=== PATIENT | male | born 1965 | race Caucasian/White ===

== ENCOUNTER 2018-02-16 17:04 | Observation (INO) ==
[2018-02-16] MEDS: 0.9 % Sodium Chloride 1,000 ML IVC SCH ×2 (17:56→19:54)
--- NOTE | 2018-02-16 18:07 | Emergency Department Note ---
Disposition Clinical Impression: Pneumonia, Hyperglycemia, Tobacco abuse Disposition: Admitted As Inpatient Condition: Fair General Adult HPI - General Stated complaint: urinary symptoms, hypergylcemia Time Seen by Provider: 02/16/18 17:41 Source: patient Limitations: other Nursing Notes Reviewed: Yes Vital Signs Reviewed: Yes - History of Present Illness Pain Scale: 0 - Related Data Home Medications Medication Instructions Recorded Confirmed Amlodipine Besylate 10 mg PO DAILY 02/16/18 02/16/18 Aspirin Enteric Coated [Aspirin EC] 81 mg PO DAILY 02/16/18 02/16/18 Bupropion HCl [Wellbutrin Xl] 300 mg PO DAILY 02/16/18 02/16/18 Cilostazol [Pletal] 100 mg PO BID 02/16/18 02/16/18 Clopidogrel [Plavix] 75 mg PO DAILY 02/16/18 02/16/18 Dapagliflozin Propanediol [Farxiga] 5 mg PO DAILY 02/16/18 02/16/18 Donepezil HCl [Aricept] 10 mg PO DAILY 02/16/18 02/16/18 Fenofibrate Nanocrystallized 145 mg PO DAILY 02/16/18 02/16/18 [Fenofibrate] Glimepiride [Amaryl] 4 mg PO DAILY 02/16/18 02/16/18 Insulin Glargine,Hum.rec.anlog 50 unit SQ BID 02/16/18 02/16/18 [Basaglar Kwikpen U-100] Isosorbide MONOnitrate (24 HR) 60 mg PO DAILY 02/16/18 02/16/18 [Imdur] Metformin HCl [Glucophage] 1,000 mg PO BID 02/16/18 02/16/18 Metoprolol Tartrate [Lopressor] 50 mg PO BID 02/16/18 02/16/18 Rosuvastatin [Crestor] 40 mg PO HS 02/16/18 02/16/18 Sertraline [Zoloft] 50 mg PO DAILY 02/16/18 02/16/18 Allergies Allergy/AdvReac Type Severity Reaction Status Date / Time No Known Allergies Allergy Verified 01/29/18 16:58 Past Medical History - Past Medical History Medical history: Reports: coronary artery disease, CVA, diabetes, hyperlipidemia , hypertension Psychiatric history: Reports: no psych history - Social History Smoking Status: Current every day smoker Smokeless Tobacco Status: No Alcohol use: Reports: none Drug use: Reports: none Physical Exam - General Limitations: other General appearance: alert, in no apparent distress Course Vital Signs Temperature 98.9 F 02/16/18 17:40 Pulse Rate 106 02/16/18 17:40 Respiratory Rate 16 02/16/18 17:40 Blood Pressure 153/83 02/16/18 17:40 O2 Sat by Pulse Oximetry 94 02/16/18 17:40 Temperature 98.1 F 02/17/18 00:06 Pulse Rate 98 02/17/18 00:06 Respiratory Rate 15 02/17/18 00:06 Blood Pressure 151/75 02/17/18 00:06 O2 Sat by Pulse Oximetry 96 02/17/18 00:06 Oxygen Delivery Oxygen Delivery Room Air Medical Decision Making - Lab Data Result diagrams: 02/16/18 17:54 02/16/18 17:54 Lab Results 02/16/18 02/16/18 02/16/18 Range/Units 17:11 17:11 17:53 WBC (4.3-11.1) K/mcL RBC (4.19-5.50) M/mcL Hgb (12.9-16.9) g/dL Hct (37.5-50.1) % MCV (83.0-100.0) fL MCH (28.0-33.3) pg MCHC (31.6-35.5) g/dL RDW (11.5-14.5) % Plt Count (140-400) K/mcL MPV (9.4-12.4) fL Immature Gran % (0-4) % Seg Neutrophils % % Lymphocytes % % Monocytes % % Eosinophils % % Basophils % % Neutrophils # (1.6-8.9) K/mcL Lymphocytes # (0.6-4.6) K/mcL Monocytes # (0.0-1.3) K/mcL Eosinophils # (0.0-0.6) K/mcL Basophils # (0.0-0.2) K/mcL Nucleated RBCs/100 WBC (0) /100 WBC VBG pH (7.32-7.42) pH Units VBG pCO2 (41-51) mmHg VBG pO2 (25-50) mmHg VBG HCO3 (21-27) mEq/L Sodium (136-145) mEq/L Potassium (3.5-5.1) mEq/L Chloride (98-107) mEq/L Carbon Dioxide (23-29) mEq/L BUN (6-20) mg/dL Creatinine (0.70-1.30) mg/dL Est GFR ( Amer) (> 60) Est GFR (Non-Af Amer) (> 60) BUN/Creatinine Ratio (6-26) Glucose (70-105) mg/dL POC Glucose 415 H* (70-99) mg/dL Calculated Osmolality (280-300) Calcium (8.6-10.3) mg/dL Total Bilirubin (0.3-1.0) mg/dL AST (13-39) Units/L ALT (7-52) Units/L Alkaline Phosphatase (34-104) Units/L Troponin I (< 0.04) ng/mL Serum Total Protein (6.4-8.9) g/dL Albumin (3.5-5.7) g/dL Globulin (2.4-3.5) g/dL Albumin/Globulin Ratio (1.1-2.2) Beta-Hydroxybutyric Acd (0.02-0.27) mmol/L Urine Color Yellow (Yellow) Urine Clarity Clear (Clear) Urine pH 5.0 (5.0-8.0) pH Units Ur Specific [place] > 1.030 H (1.010-1.025) Urine Protein Negative (Neg-Trace) mg/dL Urine Glucose (UA) >=1000 H (Normal) mg/dL Urine Ketones Negative (Negative) mg/dL Urine Blood Negative (Negative) Urine Nitrite Negative (Negative) Urine Bilirubin Negative (Negative) Urine Urobilinogen Normal (Normal) mg/dL Ur Leukocyte Esterase Negative (Negative) Ur Culture Indicated? NO (NO) Urine Opiates Screen Negative (Mgdebc=735) ng/mL Ur Barbiturates Screen Negative (Efjavr=957) ng/mL Ur Phencyclidine Scrn Negative (Cutoff=25) ng/mL Ur Amphetamines Screen Negative (Fzxnam=9033) ng/mL U Benzodiazepines Scrn Negative (Ekvumj=744) ng/mL Urine Cocaine Screen Negative (Cutoff= 300) ng/mL U Marijuana (THC) Screen Negative (Cutoff = 50) ng/mL Ur Drug Screen Interp See Below 02/16/18 02/16/18 02/16/18 Range/Units 17:54 17:54 17:54 WBC 17.7 H (4.3-11.1) K/mcL RBC 5.11 (4.19-5.50) M/mcL Hgb 15.8 (12.9-16.9) g/dL Hct 48.0 (37.5-50.1) % MCV 93.9 (83.0-100.0) fL MCH 30.9 (28.0-33.3) pg MCHC 32.9 (31.6-35.5) g/dL RDW 14.9 H (11.5-14.5) % Plt Count 315 (140-400) K/mcL MPV 10.2 (9.4-12.4) fL Immature Gran % 1.8 (0-4) % Seg Neutrophils % 44.5 % Lymphocytes % 38.3 % Monocytes % 11.0 % Eosinophils % 3.9 % Basophils % 0.5 % Neutrophils # 7.9 (1.6-8.9) K/mcL Lymphocytes # 6.8 H (0.6-4.6) K/mcL Monocytes # 1.9 H (0.0-1.3) K/mcL Eosinophils # 0.7 H (0.0-0.6) K/mcL Basophils # 0.1 (0.0-0.2) K/mcL Nucleated RBCs/100 WBC 0.2 H (0) /100 WBC VBG pH (7.32-7.42) pH Units VBG pCO2 (41-51) mmHg VBG pO2 (25-50) mmHg VBG HCO3 (21-27) mEq/L Sodium 139 (136-145) mEq/L Potassium 4.0 (3.5-5.1) mEq/L Chloride 105 (98-107) mEq/L Carbon Dioxide 24 (23-29) mEq/L BUN 32 H (6-20) mg/dL Creatinine 1.30 (0.70-1.30) mg/dL Est GFR ( Amer) > 60 (> 60) Est GFR (Non-Af Amer) 58 L (> 60) BUN/Creatinine Ratio 25 (6-26) Glucose 392 H (70-105) mg/dL POC Glucose (70-99) mg/dL Calculated Osmolality 311 H (280-300) Calcium 10.1 (8.6-10.3) mg/dL Total Bilirubin 0.2 L (0.3-1.0) mg/dL AST 17 (13-39) Units/L ALT 24 (7-52) Units/L Alkaline Phosphatase 46 (34-104) Units/L Troponin I < 0.03 (< 0.04) ng/mL Serum Total Protein 7.2 (6.4-8.9) g/dL Albumin 4.3 (3.5-5.7) g/dL Globulin 2.9 (2.4-3.5) g/dL Albumin/Globulin Ratio 1.5 (1.1-2.2) Beta-Hydroxybutyric Acd 0.25 (0.02-0.27) mmol/L Urine Color (Yellow) Urine Clarity (Clear) Urine pH (5.0-8.0) pH Units Ur Specific [place] (1.010-1.025) Urine Protein (Neg-Trace) mg/dL Urine Glucose (UA) (Normal) mg/dL Urine Ketones (Negative) mg/dL Urine Blood (Negative) Urine Nitrite (Negative) Urine Bilirubin (Negative) Urine Urobilinogen (Normal) mg/dL Ur Leukocyte Esterase (Negative) Ur Culture Indicated? (NO) Urine Opiates Screen (Pfjgme=260) ng/mL Ur Barbiturates Screen (Jnepar=394) ng/mL Ur Phencyclidine Scrn (Cutoff=25) ng/mL Ur Amphetamines Screen (Oxloxr=2940) ng/mL U Benzodiazepines Scrn (Cbjzhw=614) ng/mL Urine Cocaine Screen (Cutoff= 300) ng/mL U Marijuana (THC) Screen (Cutoff = 50) ng/mL Ur Drug Screen Interp 02/16/18 02/16/18 02/16/18 Range/Units 17:54 18:11 20:07 WBC (4.3-11.1) K/mcL RBC (4.19-5.50) M/mcL Hgb (12.9-16.9) g/dL Hct (37.5-50.1) % MCV (83.0-100.0) fL MCH (28.0-33.3) pg MCHC (31.6-35.5) g/dL RDW (11.5-14.5) % Plt Count (140-400) K/mcL MPV (9.4-12.4) fL Immature Gran % (0-4) % Seg Neutrophils % % Lymphocytes % % Monocytes % % Eosinophils % % Basophils % % Neutrophils # (1.6-8.9) K/mcL Lymphocytes # (0.6-4.6) K/mcL Monocytes # (0.0-1.3) K/mcL Eosinophils # (0.0-0.6) K/mcL Basophils # (0.0-0.2) K/mcL Nucleated RBCs/100 WBC (0) /100 WBC VBG pH 7.33 (7.32-7.42) pH Units VBG pCO2 48 (41-51) mmHg VBG pO2 47 (25-50) mmHg VBG HCO3 25 (21-27) mEq/L Sodium (136-145) mEq/L Potassium (3.5-5.1) mEq/L Chloride (98-107) mEq/L Carbon Dioxide (23-29) mEq/L BUN (6-20) mg/dL Creatinine (0.70-1.30) mg/dL Est GFR ( Amer) (> 60) Est GFR (Non-Af Amer) (> 60) BUN/Creatinine Ratio (6-26) Glucose (70-105) mg/dL POC Glucose 362 H 257 H (70-99) mg/dL Calculated Osmolality (280-300) Calcium (8.6-10.3) mg/dL Total Bilirubin (0.3-1.0) mg/dL AST (13-39) Units/L ALT (7-52) Units/L Alkaline Phosphatase (34-104) Units/L Troponin I (< 0.04) ng/mL Serum Total Protein (6.4-8.9) g/dL Albumin (3.5-5.7) g/dL Globulin (2.4-3.5) g/dL Albumin/Globulin Ratio (1.1-2.2) Beta-Hydroxybutyric Acd (0.02-0.27) mmol/L Urine Color (Yellow) Urine Clarity (Clear) Urine pH (5.0-8.0) pH Units Ur Specific [place] (1.010-1.025) Urine Protein (Neg-Trace) mg/dL Urine Glucose (UA) (Normal) mg/dL Urine Ketones (Negative) mg/dL Urine Blood (Negative) Urine Nitrite (Negative) Urine Bilirubin (Negative) Urine Urobilinogen (Normal) mg/dL Ur Leukocyte Esterase (Negative) Ur Culture Indicated? (NO) Urine Opiates Screen (Tjibbc=698) ng/mL Ur Barbiturates Screen (Ydotsr=409) ng/mL Ur Phencyclidine Scrn (Cutoff=25) ng/mL Ur Amphetamines Screen (Tpfcvp=9612) ng/mL U Benzodiazepines Scrn (Crhmgq=690) ng/mL Urine Cocaine Screen (Cutoff= 300) ng/mL U Marijuana (THC) Screen (Cutoff = 50) ng/mL Ur Drug Screen Interp Attestation Statement - Attestation Attestation: I, Alfonzo Stafford, examined this patient and my medical decision-making was reviewed with the CLIENT INTEGRATION MANAGER/PA/Advanced Practice Nurse/Resident Physician. I agree with the documented findings, disposition and treatment plan as described except to the extent set forth below. 53-year-old male presents emergency Department with concerns of increased urinary frequency and elevated blood sugar. Patient has a history of diabetes and takes, glimepiride, metformin and insulin shot. He was sent in to the emergency department for further evaluation from [facility]. Patient reports persistent diarrhea over the past few weeks however he denies abdominal pain, hematochezia, melena. No chest pain or shortness of breath the emergency department. Blood sugars greater than 400 prior to arrival. He denies missing any of his medications. We will obtain laboratory evaluation and imaging to evaluate possible DKA. Patient mildly tachycardic on initial evaluation and otherwise vital signs within normal limits. He is given IV fluids emergency department. Imaging and laboratory evaluation pending at this time.
[2018-02-16 18:08] LABS: Basophils # 0.1 K/mcL (0.0-0.2); Basophils % 0.5 %; Eosinophils # 0.7 K/mcL (0.0-0.6); Eosinophils % 3.9 %; Hemoglobin 15.8 g/dL (12.9-16.9); Immature Granulocytes % 1.8 % (0-4); Lymphocytes # 6.8 K/mcL (0.6-4.6); Lymphocytes % 38.3 %; Mean Corpuscular HGB Conc 32.9 g/dL (31.6-35.5); Mean Corpuscular Hemoglobin 30.9 pg (28.0-33.3); Mean Corpuscular Volume 93.9 fL (83.0-100.0); Mean Platelet Volume 10.2 fL (9.4-12.4); Monocytes # 1.9 K/mcL (0.0-1.3); Neutrophils # 7.9 K/mcL (1.6-8.9); Nucleated Red Blood Cells 0.2 /100 WBC (0); Platelet Count 315 K/mcL (140-400); Red Blood Count 5.11 M/mcL (4.19-5.50); Red Cell Distribution Width 14.9 % (11.5-14.5); Segmented Neutrophils % 44.5 %
[2018-02-16 18:15] LABS: VBG HCO3 25 mEq/L (21-27); VBG PCO2 48 mmHg (41-51); VBG PH 7.33 pH Units (7.32-7.42); VBG PO2 47 mmHg (25-50)
[2018-02-16 18:22] LABS: Amphetamine Screen,Urine Negative ng/mL (Cutoff=1000); Barbiturate Screen,Urine Negative ng/mL (Cutoff=200); Benzodiazepines Screen,Urine Negative ng/mL (Cutoff=200); Cannabinoid Screen,Urine Negative ng/mL (Cutoff = 50); Cocaine Screen,Urine Negative ng/mL (Cutoff= 300); Opiate Screen,Urine Negative ng/mL (Cutoff=300); Phencyclidine Screen,Urine Negative ng/mL (Cutoff=25)
[2018-02-16 18:36] LABS: Alanine Aminotransferase 24 Units/L (7-52); Albumin 4.3 g/dL (3.5-5.7); Albumin/Globulin Ratio 1.5 (1.1-2.2); Alkaline Phosphatase 46 Units/L (34-104); Aspartate Amino Transferase 17 Units/L (13-39); BUN/Creatinine Ratio 25 (6-26); Bilirubin,Total 0.2 mg/dL (0.3-1.0); Blood Urea Nitrogen 32 mg/dL (6-20); Calcium 10.1 mg/dL (8.6-10.3); Carbon Dioxide 24 mEq/L (23-29); Chloride 105 mEq/L (98-107); Globulin 2.9 g/dL (2.4-3.5); Glucose 392 mg/dL (70-105); Osmolality,Calculated 311 (280-300); Sodium 139 mEq/L (136-145); Total Protein 7.2 g/dL (6.4-8.9); Troponin I < 0.03 ng/mL (< 0.04); eGFR For Non-African Americans 58 (> 60)
--- NOTE | 2018-02-16 19:10 | Emergency Department Note ---
Disposition Clinical Impression: Hyperglycemia, Tobacco abuse Pneumonia Qualifiers: Pneumonia type: due to unspecified organism Laterality: left Lung location: lower lobe of lung Qualified Code(s): J18.1 - Lobar pneumonia, unspecified organism Disposition: Admitted As Inpatient Condition: Fair Time of Disposition: 20:26 General Adult HPI - General Stated complaint: urinary symptoms, hypergylcemia Time Seen by Provider: 02/16/18 17:41 Source: patient Limitations: other Nursing Notes Reviewed: Yes Vital Signs Reviewed: Yes - History of Present Illness HPI Narrative: Patient is a 53-year-old male who presents to [place] ED with a chief complaint of elevated blood sugar. He was sent over by [facility] where he is undergoing mental health treatment. He had multiple blood sugar readings around 442 as well as excessive thirst and urinary frequency approximately 4 times in one hour. He also has a history of a stroke back when he was 28 years old and has difficulty expressing himself verbally. He also follows with [facility] for heart problems. Patient states he has been having diarrhea for the last 3 weeks. Denies any abdominal pain currently. Onset (ago): week(s) (3) Pain Scale: 0 Consistency: constant Improves with: nothing Worsens with: nothing Associated symptoms: Denies: chest pain, cough, fever/chills, nausea/vomiting, shortness of breath Treatments Prior to Arrival: none - Related Data Home Medications Medication Instructions Recorded Confirmed Amlodipine Besylate 10 mg PO DAILY 02/16/18 02/16/18 Aspirin Enteric Coated [Aspirin EC] 81 mg PO DAILY 02/16/18 02/16/18 Bupropion HCl [Wellbutrin Xl] 300 mg PO DAILY 02/16/18 02/16/18 Cilostazol [Pletal] 100 mg PO BID 02/16/18 02/16/18 Clopidogrel [Plavix] 75 mg PO DAILY 02/16/18 02/16/18 Dapagliflozin Propanediol [Farxiga] 5 mg PO DAILY 02/16/18 02/16/18 Donepezil HCl [Aricept] 10 mg PO DAILY 02/16/18 02/16/18 Fenofibrate Nanocrystallized 145 mg PO DAILY 02/16/18 02/16/18 [Fenofibrate] Glimepiride [Amaryl] 4 mg PO DAILY 02/16/18 02/16/18 Insulin Glargine,Hum.rec.anlog 50 unit SQ BID 02/16/18 02/16/18 [Basaglar Kwikpen U-100] Isosorbide MONOnitrate (24 HR) 60 mg PO DAILY 02/16/18 02/16/18 [Imdur] Metformin HCl [Glucophage] 1,000 mg PO BID 02/16/18 02/16/18 Metoprolol Tartrate [Lopressor] 50 mg PO BID 02/16/18 02/16/18 Rosuvastatin [Crestor] 40 mg PO HS 02/16/18 02/16/18 Sertraline [Zoloft] 50 mg PO DAILY 02/16/18 02/16/18 Allergies Allergy/AdvReac Type Severity Reaction Status Date / Time No Known Allergies Allergy Verified 01/29/18 16:58 All systems ED: reviewed and negative except as stated. Past Medical History - Past Medical History Medical history: Reports: coronary artery disease, CVA, diabetes, hyperlipidemia , hypertension Psychiatric history: Reports: no psych history - Social History Smoking Status: Current every day smoker Smokeless Tobacco Status: No Alcohol use: Reports: none Drug use: Reports: none Physical Exam - General Limitations: language barrier, other General appearance: alert, in no apparent distress - Head Head exam: atraumatic, normocephalic, normal inspection - Eye Eye exam: Present: normal appearance, EOMI - ENT ENT exam: normal exam, normal oropharynx, mucous membranes moist - Neck Neck exam: Present: normal inspection, full ROM, trachea midline - Chest Chest inspection: Present: normal inspection, symmetric chest wall rise - Respiratory Respiratory exam: Present: normal lung sounds bilaterally - Cardiovascular Cardiovascular exam: Present: normal rhythm, tachycardia - Abdominal Exam Abdominal exam: Present: soft, Non-Tender. Absent: tenderness, distention, guarding, rebound, rigidity - Extremities Exam Extremities exam: Present: normal inspection, full ROM. Absent: tenderness, pedal edema - Back Exam Back exam: Present: normal inspection, full ROM. Absent: tenderness - Neurological Exam Neurological exam: Present: alert, oriented X3 - Psychiatric Psychiatric exam: Present: normal affect, normal mood - Skin Skin exam: Present: warm, dry, intact, normal color Course Course Narrative: Patient seen and examined. Complaining of diarrhea and now hyperglycemia. DKA orders placed. Since he has had chronic diarrhea, we will get a GI panel if he is able to have a bowel movement for us. We will also give a liter of fluids since patient is tachycardic. Currently denying any chest pain, difficulty breathing or abdominal pain. His abdomen is soft and nontender. I do not feel we need to image his abdomen at this time. - Reevaluation(s) Reevaluation #1: Patient's lab work shows a leukocytosis of 17,000. Patient was able to have a bowel movement for us that was performed. However, despite 1 L of IV fluids, he is still tachycardic in the low 100s. A second liter of IV fluids ordered. His chest x-ray shows signs of possible pneumonia. We will go ahead and treat with a dose of Levaquin here. We will admit for community-acquired pneumonia. Concern that this infection could cause him to go into DKA. Patient does need to go back to [facility] when he is ready for discharge home. I discussed with the hospitalist Dr. Robertson who has accepted patient for admission. Time: 20:24 Vital Signs Temperature 98.9 F 02/16/18 17:40 Pulse Rate 106 02/16/18 17:40 Respiratory Rate 16 02/16/18 17:40 Blood Pressure 153/83 02/16/18 17:40 O2 Sat by Pulse Oximetry 94 02/16/18 17:40 Temperature 98.9 F 02/16/18 17:40 Pulse Rate 110 02/16/18 17:58 Respiratory Rate 16 02/16/18 17:58 Blood Pressure 154/84 02/16/18 17:58 O2 Sat by Pulse Oximetry 95 02/16/18 17:58 Oxygen Delivery Oxygen Delivery Room Air Medical Decision Making - Medical Records Medical records reviewed: Yes I reviewed the patient's medical records. - Lab Data Lab results reviewed: Yes I reviewed the patient's lab results. Result diagrams: 02/16/18 17:54 02/16/18 17:54 Lab Results 02/16/18 02/16/18 02/16/18 Range/Units 17:11 17:53 17:54 WBC 17.7 H (4.3-11.1) K/mcL RBC 5.11 (4.19-5.50) M/mcL Hgb 15.8 (12.9-16.9) g/dL Hct 48.0 (37.5-50.1) % MCV 93.9 (83.0-100.0) fL MCH 30.9 (28.0-33.3) pg MCHC 32.9 (31.6-35.5) g/dL RDW 14.9 H (11.5-14.5) % Plt Count 315 (140-400) K/mcL MPV 10.2 (9.4-12.4) fL Immature Gran % 1.8 (0-4) % Seg Neutrophils % 44.5 % Lymphocytes % 38.3 % Monocytes % 11.0 % Eosinophils % 3.9 % Basophils % 0.5 % Neutrophils # 7.9 (1.6-8.9) K/mcL Lymphocytes # 6.8 H (0.6-4.6) K/mcL Monocytes # 1.9 H (0.0-1.3) K/mcL Eosinophils # 0.7 H (0.0-0.6) K/mcL Basophils # 0.1 (0.0-0.2) K/mcL Nucleated RBCs/100 WBC 0.2 H (0) /100 WBC VBG pH (7.32-7.42) pH Units VBG pCO2 (41-51) mmHg VBG pO2 (25-50) mmHg VBG HCO3 (21-27) mEq/L Sodium (136-145) mEq/L Potassium (3.5-5.1) mEq/L Chloride (98-107) mEq/L Carbon Dioxide (23-29) mEq/L BUN (6-20) mg/dL Creatinine (0.70-1.30) mg/dL Est GFR ( Amer) (> 60) Est GFR (Non-Af Amer) (> 60) BUN/Creatinine Ratio (6-26) Glucose (70-105) mg/dL POC Glucose 415 H* (70-99) mg/dL Calculated Osmolality (280-300) Calcium (8.6-10.3) mg/dL Total Bilirubin (0.3-1.0) mg/dL AST (13-39) Units/L ALT (7-52) Units/L Alkaline Phosphatase (34-104) Units/L Troponin I (< 0.04) ng/mL Serum Total Protein (6.4-8.9) g/dL Albumin (3.5-5.7) g/dL Globulin (2.4-3.5) g/dL Albumin/Globulin Ratio (1.1-2.2) Beta-Hydroxybutyric Acd (0.02-0.27) mmol/L Urine Opiates Screen Negative (Qwumie=137) ng/mL Ur Barbiturates Screen Negative (Hzfprp=378) ng/mL Ur Phencyclidine Scrn Negative (Cutoff=25) ng/mL Ur Amphetamines Screen Negative (Kwnhae=9325) ng/mL U Benzodiazepines Scrn Negative (Hqpxsb=457) ng/mL Urine Cocaine Screen Negative (Cutoff= 300) ng/mL U Marijuana (THC) Screen Negative (Cutoff = 50) ng/mL Ur Drug Screen Interp See Below 02/16/18 02/16/18 02/16/18 Range/Units 17:54 17:54 17:54 WBC (4.3-11.1) K/mcL RBC (4.19-5.50) M/mcL Hgb (12.9-16.9) g/dL Hct (37.5-50.1) % MCV (83.0-100.0) fL MCH (28.0-33.3) pg MCHC (31.6-35.5) g/dL RDW (11.5-14.5) % Plt Count (140-400) K/mcL MPV (9.4-12.4) fL Immature Gran % (0-4) % Seg Neutrophils % % Lymphocytes % % Monocytes % % Eosinophils % % Basophils % % Neutrophils # (1.6-8.9) K/mcL Lymphocytes # (0.6-4.6) K/mcL Monocytes # (0.0-1.3) K/mcL Eosinophils # (0.0-0.6) K/mcL Basophils # (0.0-0.2) K/mcL Nucleated RBCs/100 WBC (0) /100 WBC VBG pH (7.32-7.42) pH Units VBG pCO2 (41-51) mmHg VBG pO2 (25-50) mmHg VBG HCO3 (21-27) mEq/L Sodium 139 (136-145) mEq/L Potassium 4.0 (3.5-5.1) mEq/L Chloride 105 (98-107) mEq/L Carbon Dioxide 24 (23-29) mEq/L BUN 32 H (6-20) mg/dL Creatinine 1.30 (0.70-1.30) mg/dL Est GFR ( Amer) > 60 (> 60) Est GFR (Non-Af Amer) 58 L (> 60) BUN/Creatinine Ratio 25 (6-26) Glucose 392 H (70-105) mg/dL POC Glucose 362 H (70-99) mg/dL Calculated Osmolality 311 H (280-300) Calcium 10.1 (8.6-10.3) mg/dL Total Bilirubin 0.2 L (0.3-1.0) mg/dL AST 17 (13-39) Units/L ALT 24 (7-52) Units/L Alkaline Phosphatase 46 (34-104) Units/L Troponin I < 0.03 (< 0.04) ng/mL Serum Total Protein 7.2 (6.4-8.9) g/dL Albumin 4.3 (3.5-5.7) g/dL Globulin 2.9 (2.4-3.5) g/dL Albumin/Globulin Ratio 1.5 (1.1-2.2) Beta-Hydroxybutyric Acd 0.25 (0.02-0.27) mmol/L Urine Opiates Screen (Ltxsqo=230) ng/mL Ur Barbiturates Screen (Bufjqk=643) ng/mL Ur Phencyclidine Scrn (Cutoff=25) ng/mL Ur Amphetamines Screen (Sjasek=3630) ng/mL U Benzodiazepines Scrn (Dkolrd=313) ng/mL Urine Cocaine Screen (Cutoff= 300) ng/mL U Marijuana (THC) Screen (Cutoff = 50) ng/mL Ur Drug Screen Interp 02/16/18 Range/Units 18:11 WBC (4.3-11.1) K/mcL RBC (4.19-5.50) M/mcL Hgb (12.9-16.9) g/dL Hct (37.5-50.1) % MCV (83.0-100.0) fL MCH (28.0-33.3) pg MCHC (31.6-35.5) g/dL RDW (11.5-14.5) % Plt Count (140-400) K/mcL MPV (9.4-12.4) fL Immature Gran % (0-4) % Seg Neutrophils % % Lymphocytes % % Monocytes % % Eosinophils % % Basophils % % Neutrophils # (1.6-8.9) K/mcL Lymphocytes # (0.6-4.6) K/mcL Monocytes # (0.0-1.3) K/mcL Eosinophils # (0.0-0.6) K/mcL Basophils # (0.0-0.2) K/mcL Nucleated RBCs/100 WBC (0) /100 WBC VBG pH 7.33 (7.32-7.42) pH Units VBG pCO2 48 (41-51) mmHg VBG pO2 47 (25-50) mmHg VBG HCO3 25 (21-27) mEq/L Sodium (136-145) mEq/L Potassium (3.5-5.1) mEq/L Chloride (98-107) mEq/L Carbon Dioxide (23-29) mEq/L BUN (6-20) mg/dL Creatinine (0.70-1.30) mg/dL Est GFR ( Amer) (> 60) Est GFR (Non-Af Amer) (> 60) BUN/Creatinine Ratio (6-26) Glucose (70-105) mg/dL POC Glucose (70-99) mg/dL Calculated Osmolality (280-300) Calcium (8.6-10.3) mg/dL Total Bilirubin (0.3-1.0) mg/dL AST (13-39) Units/L ALT (7-52) Units/L Alkaline Phosphatase (34-104) Units/L Troponin I (< 0.04) ng/mL Serum Total Protein (6.4-8.9) g/dL Albumin (3.5-5.7) g/dL Globulin (2.4-3.5) g/dL Albumin/Globulin Ratio (1.1-2.2) Beta-Hydroxybutyric Acd (0.02-0.27) mmol/L Urine Opiates Screen (Ttkilo=727) ng/mL Ur Barbiturates Screen (Cqidzv=703) ng/mL Ur Phencyclidine Scrn (Cutoff=25) ng/mL Ur Amphetamines Screen (Ytzmsv=4355) ng/mL U Benzodiazepines Scrn (Xpovds=016) ng/mL Urine Cocaine Screen (Cutoff= 300) ng/mL U Marijuana (THC) Screen (Cutoff = 50) ng/mL Ur Drug Screen Interp - Radiology Data Radiology results reviewed: Yes I reviewed the patient's radiology results. Chest X-Ray 02/16/18 17:41 IMPRESSION: Mild dependent left basilar opacification with possible small effusion . Otherwise unremarkable chest. D/ / Zhao Marino MD / Zhao Marino MD Interpreting Provider: Zhao Marino MD - EKG Data EKG #1 EKG attestation: Yes I reviewed and interpreted this EKG. EKG results narrative: EKG done at 1801 shows sinus tachycardia with a rate of [address] elevation or depression. Normal axis. Inverted T waves noted in lead 3.
[2018-02-16] MEDS ORDERED: Nicotine 21 MG PATCH.TD24 TD ONE (19:42)
[2018-02-16 19:51] LABS: Bilirubin,Urine Negative (Negative); Blood,Urine Negative (Negative); Clarity,Urine Clear (Clear); Color,Urine Yellow (Yellow); Glucose,Urine (UA) >=1000 mg/dL (Normal); Ketones,Urine Negative (Negative); Leukocyte Esterase,Urine Negative (Negative); Nitrite,Urine Negative (Negative); Protein,Urine Negative (Neg-Trace); Specific Gravity,Urine > 1.030 (1.010-1.025); Urobilinogen,Urine Normal (Normal)
[2018-02-16] MEDS ORDERED: Levofloxacin 750 MG/150 ML 750 MG/150 ML BAG IVPB ONE (20:26)
[2018-02-16] MEDS ORDERED: Naloxone 0.4 MG/ML INJ IVP PRN (22:47)
[2018-02-16] MEDS ORDERED: D5% in Water 1,000 ML IVC PRN (22:53)
[2018-02-16] MEDS ORDERED: Dextrose Gel 15 GM/37.5 ML TUBE PO PRN ×2 (22:53)
[2018-02-16] MEDS ORDERED: *HR* Dextrose 50 % in Water (Syg) 50 ML SYRINGE IVP PRN (22:53)
[2018-02-16] MEDS ORDERED: 0.9 % Sodium Chloride 1,000 ML IVC ONE (22:55)
[2018-02-17] MEDS: Melatonin 3 MG TABLET PO PRN ×2 (00:14→20:57)
[2018-02-17] MEDS: Insulin DETEMIR 100 UNIT/ML X5UNITS SQ SCH ×2 (00:14→20:57)
[2018-02-17 05:59] LABS: Hematocrit 44.4 % (37.5-50.1); Hemoglobin 14.6 g/dL (12.9-16.9); Mean Corpuscular HGB Conc 32.9 g/dL (31.6-35.5); Mean Corpuscular Hemoglobin 30.2 pg (28.0-33.3); Mean Corpuscular Volume 91.9 fL (83.0-100.0); Platelet Count 295 K/mcL (140-400); Red Blood Count 4.83 M/mcL (4.19-5.50); Red Cell Distribution Width 14.9 % (11.5-14.5)
[2018-02-17 06:20] LABS: BUN/Creatinine Ratio 22 (6-26); Blood Urea Nitrogen 22 mg/dL (6-20); Calcium 9.2 mg/dL (8.6-10.3); Carbon Dioxide 23 mEq/L (23-29); Chloride 112 mEq/L (98-107); Glucose 158 mg/dL (70-105); Osmolality,Calculated 301 (280-300); Potassium 3.8 mEq/L (3.5-5.1); Sodium 142 mEq/L (136-145); eGFR For Non-African Americans > 60 (> 60)
[2018-02-17 06:49] LABS: Estimated Average Glucose 240 mg/dl
--- NOTE | 2018-02-17 07:25 | Internal Med History&Physical ---
Date of Encounter: 02/16/18 Time of Encounter: 22:00 Internal Medicine - H&P: HPI Chief complaint: Pneumonia, NISH Admitted From: Home Plans for Post Hospital Care: Home History of present illness: Mr. Best is a 53 year old male Patient states he has increased urination up to 4 times in an hour. He comes from a facility called [facility] related been treating him for mental illness. They noted that his sugars have been elevated despite him apparently taking his medicine. The facility was concerned about these findings and wanted him further evaluated. Patient is a poor historian as he has an underlying deficiency secondary to stroke and has difficulty expressing himself. He does however deny shortness of breath and chest pain. He states he has a history of left kidney dysfunction secondary to an accident when he was 4 result. He has a history of 2 stents placed in his heart and one in his leg. He denied abdominal pain, blood in stools and urine. He denies nausea and vomiting. Upon arrival in the emergency room patient's glucose was found to be 392, crit 18 1.30 chest x-ray showed left basilar opacification. U tox was negative and urinalysis was positive for glucose greater than 1000. He is admitted for his apparent pneumonia and NISH. Past Med Surg Social Fam HX - Past Medical History Medical history: coronary artery disease, CVA, diabetes, hyperlipidemia, hypertension Psychiatric history: no psych history - Past Surgical History Additional surgical history: abdominal surgery - Social History Smoking Status: Current every day smoker Smokeless Tobacco Status: No Alcohol use: none Drug use: none Internal Medicine - H&P: Meds Amlodipine Besylate 10 mg PO DAILY 02/16/18 [History] Aspirin Enteric Coated [Aspirin EC] 81 mg PO DAILY 02/16/18 [History] Bupropion HCl [Wellbutrin Xl] 300 mg PO DAILY 02/16/18 [History] Cilostazol [Pletal] 100 mg PO BID 02/16/18 [History] Clopidogrel [Plavix] 75 mg PO DAILY 02/16/18 [History] Dapagliflozin Propanediol [Farxiga] 5 mg PO DAILY 02/16/18 [History] Donepezil HCl [Aricept] 10 mg PO DAILY 02/16/18 [History] Fenofibrate Nanocrystallized [Fenofibrate] 145 mg PO DAILY 02/16/18 [History] Glimepiride [Amaryl] 4 mg PO DAILY 02/16/18 [History] Insulin Glargine,Hum.rec.anlog [Basaglar Kwikpen U-100] 50 unit SQ BID 02/16/18 [History] Isosorbide MONOnitrate (24 HR) [Imdur] 60 mg PO DAILY 02/16/18 [History] Metformin HCl [Glucophage] 1,000 mg PO BID 02/16/18 [History] Metoprolol Tartrate [Lopressor] 50 mg PO BID 02/16/18 [History] Rosuvastatin [Crestor] 40 mg PO HS 02/16/18 [History] Sertraline [Zoloft] 50 mg PO DAILY 02/16/18 [History] 3 Allergy/AdvReac Type Severity Reaction Status Date / Time No Known Allergies Allergy Verified 01/29/18 16:58 All Systems PM: A 10-system review of systems was performed and is negative for pertinent findings except as documented above in the HPI. - Constitutional Vitals: Temp Pulse Resp BP Pulse Ox 98.1 F 84 15 128/72 94 02/17/18 05:39 02/17/18 05:39 02/17/18 05:39 02/17/18 05:39 02/17/18 05:39 General appearance: Present: cooperative, A&O X 2, mild distress, pleasant, answers questions appropriately Exam: Oriented to self and time but not place - Head Head exam: Present: normal inspection - Eye Eye exam: Present: normal appearance - Respiratory Respiratory exam: Present: CTAB. Absent: chest wall tenderness, decreased breath sounds, wheezes - Cardiovascular Cardiovascular exam: Present: RRR. Absent: diastolic murmur, systolic murmur - GI/Abdominal GI/Abdominal exam: Present: normal bowel sounds, soft. Absent: tenderness - Extremities Exam Extremities exam: Present: warm, radial pulses palpable and symmetrical. Absent : calf tenderness, pedal edema, tenderness - Neurological Exam Neurological exam: Present: motor sensory deficit, speech deficit. Absent: facial droop Additional comments: Chronic right-sided flexed position of right hand and right great toe secondary to stroke - Skin Skin exam: Present: dry, normal color, warm Internal Med - H&P Results - Labs CBC & Chem 7: 02/17/18 05:27 08/08/18 05:27 Labs: Short CBC 02/17/18 Range/Units 05:27 WBC 15.8 H (4.3-11.1) K/mcL Hgb 14.6 (12.9-16.9) g/dL Hct 44.4 (37.5-50.1) % Plt Count 295 (140-400) K/mcL BMP 02/17/18 05:27 Sodium 142 Potassium 3.8 Chloride 112 H Carbon Dioxide 23 BUN 22 H Creatinine 0.98 Glucose 158 H Calcium 9.2 - Assessment and plan (1) Pneumonia Current Visit: Yes Status: Acute Assessment and plan: As evidenced by patient's chest x-ray. Blood cultures not obtained prior to giving antibiotics in the emergency room. Continue Levaquin Continue oxygen supplementation as needed. Continue to monitor. Qualifiers: Pneumonia type: due to unspecified organism Laterality: left Lung location: lower lobe of lung Qualified Code(s): J18.1 - Lobar pneumonia, unspecified organism (2) Hyperglycemia Current Visit: Yes Status: Acute Assessment and plan: Poorly controlled diabetic. Giving basal insulin 16 units at night assistant sugars ACHS Insulin medium sliding scale with meals. Check A1c in AM. (3) Tobacco abuse Current Visit: Yes Status: Acute Assessment and plan: Nicotine patch applied. (4) NISH (acute kidney injury) Current Visit: Yes Status: Acute Assessment and plan: Slight increase from creatinine base line to 1.30, GFR also low at 58 on initial labs. IVF hydration Recheck labs in AM. - Time Spent With Patient Total time spent is greater than 50% in coordination of care (as documented) at patient's floor/unit and/or counseling patient: Greater than 35 minutes
[2018-02-17] MEDS: Levofloxacin 750 MG/150 ML 750 MG/150 ML BAG IVPB SCH (11:14)
[2018-02-17] MEDS: BuPROPion XL (24 HR) 150 MG TABLET PO SCH (11:15)
[2018-02-17] MEDS: Insulin LISPRO 300 UNITS/3 ML VIAL SQ SCH ×3 (11:15→17:10)
[2018-02-17] MEDS: Isosorbide MONOnitrate (24 HR) 60 MG TAB.ER.24H PO SCH (11:15)
[2018-02-17] MEDS: amLODIPine 5 MG TABLET PO SCH (11:15)
[2018-02-17] MEDS: Aspirin Enteric Coated 81 MG Tablet PO SCH (11:15)
--- NOTE | 2018-02-17 15:00 | Internal Med Progress Note ---
Hospitalist Progress Note - Encounter Date of Encounter: 02/17/18 Time of Encounter: 09:00 - Subjective Interval History: Reports feeling better. Intermittent dry cough. No chest pain, shortness of breath, wheezing. He does have some speech difficulty due to previous stroke. Patient was sent from [facility] facility due to uncontrolled blood sugars and polyuria. - Exam Vitals: Temp Pulse Resp BP Pulse Ox 98.1 F 75 16 134/83 94 02/17/18 14:12 02/17/18 14:12 02/17/18 14:12 02/17/18 14:12 02/17/18 14:12 Exam: General: Well-developed obese male, sitting up at the edge of bed in no acute distress Chest: Normal thoracic expansion. Normal breath sounds. Clear to auscultation. Heart: Normal S1 & S2; rhythmic. No rubs or murmurs. Abdomen: Non-distended, soft and nontender Neurological: Awake, alert and oriented to person, place and time. Dysarthria and facial droop+; Psych: Affect appropriate. - Assessment and Plan (1) Hyperglycemia Current Visit: Yes Status: Acute Assessment and Plan: Blood sugars improved. Patient is noted to be on Lantus and oral hypoglycemics , doubtful complaints. Continue current regimen of basal bolus insulin, Accu- Chek blood glucose monitoring and diabetic diet. We will discuss with elementary school social worker for appropriate medication reconciliation at the time of discharge. (2) Pneumonia Current Visit: Yes Status: Acute Assessment and Plan: Chest x-ray shows possible left basal opacification. Also had leukocytosis, which is improving. Follow-up blood cultures and continue empiric IV antibiotics-Levaquin. Supportive care and supplemental oxygen. (3) NISH (acute kidney injury) Current Visit: Yes Status: Resolved Assessment and Plan: Probably due to hypoglycemia. Serum creatinine normalized with IV hydration. (4) Essential hypertension Current Visit: Yes Status: Chronic (5) Diabetes mellitus Current Visit: Yes Status: Chronic Assessment and Plan: Uncontrolled diabetes with hemoglobin A1c 10%. Plan of care as above. (6) CVA (cerebral vascular accident) Current Visit: Yes Status: Chronic (7) Peripheral arterial disease Current Visit: Yes Status: Chronic Assessment and Plan: Follows with vascular surgery as outpatient. Received previous lower extremity stenting, continue aspirin and Pletal, hold Plavix for now. (8) Tobacco abuse Current Visit: Yes Status: Chronic Assessment and Plan: Continue nicotine transdermal patch. DVT Prophylaxis: start s.c Heparin; - Time Spent with Patient Total time spent is greater than 50% in coordination of care (as documented) at patient's floor/unit and/or counseling patient: Plan of Care Discussed with: nurse Internal Medicine: Result - Labs CBC & Chem 7: 02/17/18 05:27 02/17/18 05:27 Labs: Short CBC 02/17/18 Range/Units 05:27 WBC 15.8 H (4.3-11.1) K/mcL Hgb 14.6 (12.9-16.9) g/dL Hct 44.4 (37.5-50.1) % Plt Count 295 (140-400) K/mcL BMP 02/17/18 05:27 Sodium 142 Potassium 3.8 Chloride 112 H Carbon Dioxide 23 BUN 22 H Creatinine 0.98 Glucose 158 H Calcium 9.2 Consult Discharge Plan - Plan Referrals: Ahsan Joe MD [Primary Care Provider] - (2) Pneumonia Qualifiers: Pneumonia type: due to unspecified organism Laterality: left Lung location: lower lobe of lung Qualified Code(s): J18.1 - Lobar pneumonia, unspecified organism (5) Diabetes mellitus Qualifiers: Diabetes mellitus type: type 2 Diabetes mellitus correction insulin use: with correction use Diabetes mellitus complication status: with hyperglycemia Qualified Code(s): E11.65 - Type 2 diabetes mellitus with hyperglycemia; Z79.4 - halfway (current) use of insulin (6) CVA (cerebral vascular accident) Qualifiers: CVA mechanism: unspecified Qualified Code(s): I63.9 - Cerebral infarction, unspecified
--- NOTE | 2018-02-17 17:03 | Electrocardiograph Report ---
[address] [place] [address] Test Date: 2018-02-16 Pat Name: Zhao Best Department: 104 Room: 3A Gender: M [employer]: EKP : 1965 Requested By: Alfonzo Stafford Order Number: [id number] Reading MD: Rashid Ross Measurements Intervals [place] Rate: 108 P: 39 MN: 128 QRS: 52 QRSD: 93 T: 32 QT: 352 QTc: 415 Interpretive Statements SINUS TACHYCARDIA POSSIBLE INFERIOR MYOCARDIAL INFARCTION, PROBABLY OLD Electronically Signed On 02-17-2018 17:01:12 EDT by Rashid Ross
[2018-02-17] MEDS: *HR* Heparin 5,000 UNIT/ML VIAL SQ SCH (20:57)
[2018-02-17] MEDS ORDERED: Nicotine 14 MG PATCH.TD24 TD SCH (21:00)
[2018-02-18 06:08] LABS: Basophils # 0.1 K/mcL (0.0-0.2); Basophils % 0.7 %; Eosinophils # 0.8 K/mcL (0.0-0.6); Eosinophils % 6.1 %; Hematocrit 52.5 % (37.5-50.1); Immature Granulocytes % 1.9 % (0-4); Lymphocytes % 35.9 %; Mean Corpuscular HGB Conc 32.4 g/dL (31.6-35.5); Mean Corpuscular Hemoglobin 30.7 pg (28.0-33.3); Mean Corpuscular Volume 94.9 fL (83.0-100.0); Mean Platelet Volume 10.7 fL (9.4-12.4); Monocytes # 1.6 K/mcL (0.0-1.3); Monocytes % 12.1 %; Neutrophils # 5.9 K/mcL (1.6-8.9); Platelet Count 230 K/mcL (140-400); Red Blood Count 5.53 M/mcL (4.19-5.50); Red Cell Distribution Width 14.9 % (11.5-14.5); Segmented Neutrophils % 43.3 %
[2018-02-18 06:09] LABS: Lymphocytes # 4.9 K/mcL (0.6-4.6)
[2018-02-18] MEDS: *HR* Heparin 5,000 UNIT/ML VIAL SQ SCH (06:13)
[2018-02-18 06:32] LABS: BUN/Creatinine Ratio 22 (6-26); Blood Urea Nitrogen 21 mg/dL (6-20); Calcium 9.5 mg/dL (8.6-10.3); Carbon Dioxide 21 mEq/L (23-29); Chloride 108 mEq/L (98-107); Glucose 235 mg/dL (70-105); Osmolality,Calculated 297 (280-300); Potassium 4.3 mEq/L (3.5-5.1); Sodium 138 mEq/L (136-145); eGFR For Non-African Americans > 60 (> 60)
[2018-02-18] MEDS: Insulin LISPRO 300 UNITS/3 ML VIAL SQ SCH ×2 (08:05→11:51)
[2018-02-18] MEDS: Levofloxacin 750 MG/150 ML 750 MG/150 ML BAG IVPB SCH (08:06)
[2018-02-18] MEDS: BuPROPion XL (24 HR) 150 MG TABLET PO SCH (08:07)
[2018-02-18] MEDS: Isosorbide MONOnitrate (24 HR) 60 MG TAB.ER.24H PO SCH (08:08)
[2018-02-18] MEDS: Aspirin Enteric Coated 81 MG Tablet PO SCH (08:08)
[2018-02-18] MEDS: amLODIPine 5 MG TABLET PO SCH (08:08)
[2018-02-18 08:10] LABS: Estimated Average Glucose 240 mg/dl
[2018-02-18 09:15] LABS: Adenovirus F 40/41 PCR Not detected (Not detect); Astrovirus PCR Not detected (Not detect); C.difficile Toxin A/B by PCR See reflex test (Not detect); Campylobacter by PCR Not detected (Not detect); Cryptosporidium by PCR Not detected (Not detect); Cyclospora cayetanensis PCR Not detected (Not detect); E. coli O157 by PCR Not detected (Not detect); Entamoeba histolytica PCR Not detected (Not detect); Enteroaggregative E.coli(EAEC) Not detected (Not detect); Enteropathogenic E.coli(EPEC) Not detected (Not detect); Enterotoxigenic E.coli (ETEC) Not detected (Not detect); Giardia lamblia PCR Not detected (Not detect); Norovirus GI/GII PCR Not detected (Not detect); Plesiomonas shigelloides PCR Not detected (Not detect); Rotavirus A PCR Not detected (Not detect); Salmonella PCR Not detected (Not detect); Sapovirus PCR Not detected (Not detect); Shig/EnteroinvasiveE coli EIEC Not detected (Not detect); Shigalike tox-prod E coli STEC Not detected (Not detect); Vibrio PCR Not detected (Not detect); Vibrio cholerae PCR Not detected (Not detect); Yersinia enterocolitica PCR Not detected (Not detect)
[2018-02-18 10:18] VITALS: BP 115/71
[2018-02-18] MEDS ORDERED: Insulin DETEMIR 100 UNIT/ML X5UNITS SQ SCH (10:22)
[2018-02-18] MEDS ORDERED: Vancomycin Oral Soln 125 MG/2.5 ML UDC PO SCH (13:00)
--- NOTE | 2018-02-18 13:48 | Discharge Summary ---
- NOTES TO OUTPATIENT PROVIDER Notes to Outpatient Provider: Admitted with hyperglycemia, diarrhea, stool positive for C. difficile toxin B. Is being discharged on oral vancomycin. Outpatient follow-up for blood sugar monitoring. Date of Encounter: 02/18/18 Time of Encounter: 10:40 - Discharge Diagnosis (1) Hyperglycemia Priority: Primary Status: Acute (2) Pneumonia Priority: Primary Status: Ruled-out Qualifiers: Pneumonia type: due to unspecified organism Laterality: left Lung location: lower lobe of lung Qualified Code(s): J18.1 - Lobar pneumonia, unspecified organism (3) NISH (acute kidney injury) Priority: Primary Status: Resolved (4) Essential hypertension Priority: Secondary Status: Chronic (5) Diabetes mellitus Priority: Secondary Status: Chronic Qualifiers: Diabetes mellitus type: type 2 Diabetes mellitus custodial insulin use: with termite control representative use Diabetes mellitus complication status: with hyperglycemia Qualified Code(s): E11.65 - Type 2 diabetes mellitus with hyperglycemia; Z79.4 - care home (current) use of insulin (6) CVA (cerebral vascular accident) Priority: Secondary Status: Chronic Qualifiers: CVA mechanism: unspecified Qualified Code(s): I63.9 - Cerebral infarction, unspecified (7) Peripheral arterial disease Priority: Secondary Status: Chronic (8) Tobacco abuse Priority: Secondary Status: Chronic (9) Clostridium difficile diarrhea Priority: Primary Status: Acute Hospital course: Mr. Best is a 53 year old male with the above medical problems, who was sent from [facility] due to hyperglycemia and polyuria. Patient was started on basal bolus insulin regimen with Improving blood sugars. He demonstrated accurate ability to self administer insulin and he is noted to be on basal insulin as outpatient, the dose of which is being decreased at this time. He also had leukocytosis and was treated with IV Levaquin for suspected pneumonia. He reports diarrhea, stool GI panel tested positive for Clostridium difficile and he is being started on oral vancomycin. Leukocytosis is currently improving. Patient is otherwise medically stable for discharge. Discharge discussed with: patient, nurse, social work - Time Spent with Patient Total time spent providing and/or coordinating discharge services: Greater than 30 minutes (45 min) - Discharge Medications Prescriptions: Vancomycin Oral Soln [Firvanq] 125 mg PO QID 10 Days [facility] [place] Home Medications: Amlodipine Besylate 10 mg PO DAILY 02/16/18 [History] Aspirin Enteric Coated [Aspirin EC] 81 mg PO DAILY 02/16/18 [History] Bupropion HCl [Wellbutrin Xl] 300 mg PO DAILY 02/16/18 [History] Cilostazol [Pletal] 100 mg PO BID 02/16/18 [History] Clopidogrel [Plavix] 75 mg PO DAILY 02/16/18 [History] Dapagliflozin Propanediol [Farxiga] 5 mg PO DAILY 02/16/18 [History] Donepezil HCl [Aricept] 10 mg PO DAILY 02/16/18 [History] Fenofibrate Nanocrystallized [Fenofibrate] 145 mg PO DAILY 02/16/18 [History] Glimepiride [Amaryl] 4 mg PO DAILY 02/16/18 [History] Isosorbide MONOnitrate (24 HR) [Imdur] 60 mg PO DAILY 02/16/18 [History] Metformin HCl [Glucophage] 1,000 mg PO BID 02/16/18 [History] Metoprolol Tartrate [Lopressor] 50 mg PO BID 02/16/18 [History] Rosuvastatin [Crestor] 40 mg PO HS 02/16/18 [History] Sertraline [Zoloft] 50 mg PO DAILY 02/16/18 [History] Insulin Glargine,Hum.rec.anlog [Basaglar Kwikpen U-100] 25 unit SQ BID #0 [Rx] Vancomycin Oral Soln [Firvanq] 125 mg PO QID 10 Days udc 02/18/18 [Rx] Allergies/Adverse Reactions: 3 Allergy/AdvReac Type Severity Reaction Status Date / Time No Known Allergies Allergy Verified 01/29/18 16:58 Date of admission: 02/16/18 20:24 Primary care physician: Ahsan Joe Consults: 02/18/18 09:33 Consult to Boring Machine Feeder [CONS] Routine Reason for SW Consult: Assist with transferring patient back to [facility] when ready for d/c. Discharging clinician: Sherrell Saenz Anticipated date of discharge: 02/18/18 - Constitutional Vitals: Temp Pulse Resp BP Pulse Ox 97.6 F 60 15 115/71 96 02/18/18 10:15 02/18/18 10:15 02/18/18 10:15 02/18/18 10:15 02/18/18 10:15 General appearance: Present: cooperative, A&O X 3, answers questions appropriately - Cardiovascular Cardiovascular exam: Present: RRR, +S1, +S2. Absent: diastolic murmur, gallop, rubs, systolic murmur - Patient Status Disposition: Transfer Psychiatric Hosp Condition: Good Functional capacity at discharge: independent ambulation Overall status at discharge: patient is progressing back to baseline - Discharge Instructions Follow Up With: Ahsan Joe MD [Primary Care Provider] - Forms: ED Satisfaction Letter, Work/School Release Additional Instructions: F/up with PCP in 1-2 weeks - Diet and Activity Activity: resume usual activities as tolerated Diet: diabetic diet, low fat, low cholesterol, low salt diet
== END 2018-02-18 14:30 | disposition home or self-care (01) ==
LOC: EMEROO 17:04 → 3ANU 17:04 → SUATTDRO 20:24 → 3ANU 20:45
PROVIDERS: ADMIT Internal Medicine; ATTEND Internal Medicine

== ENCOUNTER 2018-02-22 06:03 | Inpatient (IN) ==
[2018-02-22] MEDS ORDERED: Aspirin 81 MG TAB.CHEW PO ONE (06:10)
--- NOTE | 2018-02-22 06:23 | Emergency Department Note ---
Disposition Clinical Impression: Chest pain Qualifiers: Chest pain type: unspecified Qualified Code(s): R07.9 - Chest pain, unspecified Disposition: Still a Patient Condition: Good Referrals: Ahsan Joe MD [Primary Care Provider] - Chest Pain HPI - General Chief Complaint: ED Chest Pain Stated Complaint: CP Time Seen by Provider: 02/22/18 06:09 Source: patient Mode of arrival: ambulatory Limitations: no limitations Vital Signs Reviewed: Yes Nursing Notes Reviewed: Yes - History of Present Illness HPI Narrative: 53-year-old male tobacco user, hypertension, diabetes, hyperlipidemia, CAD 2 stents, and CVA most recent 2 years ago presents emergency department with chest pain. Patient was trying to get asleep when he experience sharp pain in his left chess that radiated to the right. And has been constant and has not improved. Nothing seems to make it worse. He got short of breath. Denies any nausea or vomiting or diaphoresis. Denies lightheadedness or syncope. Since it feels similar to his prior heart attack. He has not taken in aspirin today. He states he would have taken nitro but he does not have any. He does not follow with a supervisor screen making here as he recently moved. He does report history of clot in his leg on the right but also a stent. He takes aspirin and Plavix and denies any anticoagulants used. A recent travel, no recent surgery, hospitalization, cancer. Pt complaint: chest pain Severity scale (1-10): 7 - Related Data Home Medications Medication Instructions Recorded Confirmed Amlodipine Besylate 10 mg PO DAILY 02/16/18 02/16/18 Aspirin Enteric Coated [Aspirin EC] 81 mg PO DAILY 02/16/18 02/16/18 Bupropion HCl [Wellbutrin Xl] 300 mg PO DAILY 02/16/18 02/16/18 Cilostazol [Pletal] 100 mg PO BID 02/16/18 02/16/18 Clopidogrel [Plavix] 75 mg PO DAILY 02/16/18 02/16/18 Dapagliflozin Propanediol [Farxiga] 5 mg PO DAILY 02/16/18 02/16/18 Donepezil HCl [Aricept] 10 mg PO DAILY 02/16/18 02/16/18 Fenofibrate Nanocrystallized 145 mg PO DAILY 02/16/18 02/16/18 [Fenofibrate] Glimepiride [Amaryl] 4 mg PO DAILY 02/16/18 02/16/18 Isosorbide MONOnitrate (24 HR) 60 mg PO DAILY 02/16/18 02/16/18 [Imdur] Metformin HCl [Glucophage] 1,000 mg PO BID 02/16/18 02/16/18 Metoprolol Tartrate [Lopressor] 50 mg PO BID 02/16/18 02/16/18 Rosuvastatin [Crestor] 40 mg PO HS 02/16/18 02/16/18 Sertraline [Zoloft] 50 mg PO DAILY 02/16/18 02/16/18 Previous Rx's Medication Instructions Recorded Insulin Glargine,Hum.rec.anlog 25 unit SQ BID #0 02/18/18 [Basaglar Kwikpen U-100] Vancomycin Oral Soln [Firvanq] 125 mg PO QID 10 Days udc 02/18/18 Allergies Allergy/AdvReac Type Severity Reaction Status Date / Time No Known Allergies Allergy Verified 01/29/18 16:58 All systems ED: reviewed and negative except as stated. Review of Systems: As Per HPI Constitutional: Denies: fever, chills ENT ED: Denies: congestion Cardiovascular: Reports: chest pain. Denies: dyspnea on exertion Respiratory: Denies: cough, dyspnea Gastrointestinal: Denies: abdominal pain, nausea, vomiting Musculoskeletal: Denies: back pain, neck pain Neurological: Denies: headache Chest Pain PMH - Past Medical History Medical history: Reports: coronary artery disease, CVA, diabetes, hyperlipidemia , hypertension Psychiatric history: Reports: no psych history - Social History Smoking Status: Current every day smoker Alcohol use: Reports: none Drug use: Reports: none Physical Exam - General Limitations: no limitations General appearance: alert, in no apparent distress - Head Head exam: atraumatic, normocephalic, normal inspection - Eye Eye exam: Present: normal appearance, PERRL, EOMI - ENT ENT exam: normal exam, normal oropharynx, mucous membranes moist - Neck Neck exam: Present: normal inspection, full ROM, trachea midline - Chest Chest inspection: Present: normal inspection, symmetric chest wall rise, other ( Patient holds his left arm by his chest). Absent: tenderness - Respiratory Respiratory exam: Present: normal lung sounds bilaterally. Absent: respiratory distress, wheezes - Cardiovascular Cardiovascular exam: Present: normal rhythm, tachycardia, normal heart sounds - Expanded Cardiovascular Exam Peripheral pulses: 2+: radial (R), radial (L) - Abdominal Exam Abdominal exam: Present: soft (Protuberant), normal bowel sounds, scar. Absent : tenderness, distention, guarding, rebound, rigidity - Extremities Exam Extremities exam: Present: normal inspection, full ROM, normal capillary refill. Absent: tenderness, pedal edema, calf tenderness - Neurological Exam Neurological exam: Present: alert, oriented X3, normal gait, other (Baseline dysarthria from his prior CVA) - Expanded Neurological Exam Patient oriented to: Present: time - Psychiatric Psychiatric exam: Present: normal affect, normal mood - Skin Skin exam: Present: warm, dry, intact, normal color. Absent: rash, cyanosis, diaphoresis Course Course Narrative: Patient presents with chest pain 3 hours prior to arrival. He has multiple risk factors including CAD into stents. History of CVA with some residual dysarthria that is not worse or new. He continues to have chest pain that radiates to the right. Patient is tachycardic and hypoxic with a reported history of blood clot in the leg, he is unsure feels a deep vein thrombosis, he denies history of blood clot in the lung. He does report a stent in the right leg that makes me think more peripheral arterial. Will check a d-dimer. Aspirin administered. Trial of nitro. Patient will require admission for further ACS workup. EKG does not reveal acute ischemic changes. - Reevaluation(s) Reevaluation #1: Review of his medical records shows recent admission that was tested positive for C diff. Contact precautions made. Pain workup initiated. Patient will be signed up to date physician Dr. Duron. Please see note for further details and final disposition. Time: 06:36 Vital Signs Temperature 98.1 F 02/22/18 06:05 Pulse Rate 118 02/22/18 06:05 Respiratory Rate 20 02/22/18 06:05 Blood Pressure 170/80 02/22/18 06:05 O2 Sat by Pulse Oximetry 96 02/22/18 06:05 Temperature 98.1 F 02/22/18 06:17 Pulse Rate 118 02/22/18 06:17 Respiratory Rate 20 02/22/18 06:17 Blood Pressure 170/80 02/22/18 06:17 O2 Sat by Pulse Oximetry 96 02/22/18 06:17 Oxygen Delivery Oxygen Delivery Room Air Chest Pain - MDM Narrative Medical decision making narrative: Patient was discussed with my attending physician who agrees with ED management and final disposition. They independently evaluated the patient. Please refer to their attestation to this encounter for additional information. This note was generated by [employer] voice recognition software and as a result grammatical or spelling errors may occur using this program. - Medical Records Medical records reviewed: Yes I reviewed the patient's medical records. - EKG Data EKG attestation: Yes I reviewed and interpreted this EKG. EKG results narrative: EKG performed 612 sinus tachycardia 1 14 bpm, normal axis, good R wave progression, no ST elevation, intervals within normal limits, Q waves in the inferior leads which are old compared to prior EKG performed 02/16/2018. Similar consistent findings. No acute ischemic changes. Heart Score - Score History: Slightly Suspicious EKG: Non Specific repolarisation Disturbance Age: 45-65 Risk Factors: Equal/Greater than 3 risk factor or history of atherosclerotic disease
--- NOTE | 2018-02-22 06:35 | Emergency Department Note ---
Disposition Clinical Impression: Clostridium difficile carrier Chest pain Qualifiers: Chest pain type: unspecified Qualified Code(s): R07.9 - Chest pain, unspecified Disposition: Still a Patient Referrals: Ahsan Joe MD [Primary Care Provider] - General Adult HPI - General Chief complaint: ED Chest Pain Stated complaint: CP Time Seen by Provider: 02/22/18 06:09 Source: patient Mode of arrival: ambulatory Limitations: no limitations - History of Present Illness Pain Scale: 7 - Related Data Home Medications Medication Instructions Recorded Confirmed Amlodipine Besylate 10 mg PO DAILY 02/16/18 02/16/18 Aspirin Enteric Coated [Aspirin EC] 81 mg PO DAILY 02/16/18 02/16/18 Bupropion HCl [Wellbutrin Xl] 300 mg PO DAILY 02/16/18 02/16/18 Cilostazol [Pletal] 100 mg PO BID 02/16/18 02/16/18 Clopidogrel [Plavix] 75 mg PO DAILY 02/16/18 02/16/18 Dapagliflozin Propanediol [Farxiga] 5 mg PO DAILY 02/16/18 02/16/18 Donepezil HCl [Aricept] 10 mg PO DAILY 02/16/18 02/16/18 Fenofibrate Nanocrystallized 145 mg PO DAILY 02/16/18 02/16/18 [Fenofibrate] Glimepiride [Amaryl] 4 mg PO DAILY 02/16/18 02/16/18 Isosorbide MONOnitrate (24 HR) 60 mg PO DAILY 02/16/18 02/16/18 [Imdur] Metformin HCl [Glucophage] 1,000 mg PO BID 02/16/18 02/16/18 Metoprolol Tartrate [Lopressor] 50 mg PO BID 02/16/18 02/16/18 Rosuvastatin [Crestor] 40 mg PO HS 02/16/18 02/16/18 Sertraline [Zoloft] 50 mg PO DAILY 02/16/18 02/16/18 Previous Rx's Medication Instructions Recorded Insulin Glargine,Hum.rec.anlog 25 unit SQ BID #0 02/18/18 [Basaglar Kwikpen U-100] Vancomycin Oral Soln [Firvanq] 125 mg PO QID 10 Days udc 02/18/18 Allergies Allergy/AdvReac Type Severity Reaction Status Date / Time No Known Allergies Allergy Verified 01/29/18 16:58 Constitutional: Denies: fever, chills ENT ED: Denies: congestion Cardiovascular: Reports: chest pain. Denies: dyspnea on exertion Respiratory: Denies: cough, dyspnea Gastrointestinal: Denies: abdominal pain, nausea, vomiting Musculoskeletal: Denies: back pain, neck pain Neurological: Denies: headache Past Medical History - Past Medical History Medical history: Reports: coronary artery disease, CVA, diabetes, hyperlipidemia , hypertension Psychiatric history: Reports: no psych history - Social History Smoking Status: Current every day smoker Smokeless Tobacco Status: No Alcohol use: Reports: none Drug use: Reports: none Physical Exam - General Limitations: no limitations General appearance: alert, in no apparent distress Course Vital Signs Temperature 98.1 F 02/22/18 06:05 Pulse Rate 118 02/22/18 06:05 Respiratory Rate 20 02/22/18 06:05 Blood Pressure 170/80 02/22/18 06:05 O2 Sat by Pulse Oximetry 96 02/22/18 06:05 Temperature 98.1 F 02/22/18 06:17 Pulse Rate 118 02/22/18 06:17 Respiratory Rate 20 02/22/18 06:17 Blood Pressure 170/80 02/22/18 06:17 O2 Sat by Pulse Oximetry 96 02/22/18 06:17 Oxygen Delivery Oxygen Delivery Room Air Attestation Statement - Attestation Attestation: I examined this patient and my medical decision-making was reviewed with the Resident Physician. I agree with the documented findings, disposition and treatment plan as described except to the extent set forth below. 53 year old male presents to the ED with complaints of chest pain and state that if he had nitro at home he would have taken it. Danitza is hypertensive at bedsied and his chest pain does radiate into his neck and arm. Patient was most recently admitted ot the hospital and treated for pneumoina, and diabetes and it appears that he was also diagnsoed with c.diff on discharge. WE will use contact precautions. Danitza will have cardiopulumonary workup and a D-dimer added secondary to recent hospital stay and tachycardia at bedside. We will sign danitza out to day team )Audi. He will likely need admision although final dispostion is up to day team
--- NOTE | 2018-02-22 06:48 | Emergency Department Note ---
Disposition Clinical Impression: Clostridium difficile carrier, Hyperglycemia Chest pain Qualifiers: Chest pain type: unspecified Qualified Code(s): R07.9 - Chest pain, unspecified Disposition: Admitted As Inpatient Condition: Good Referrals: Ahsan Joe MD [Primary Care Provider] - Time of Disposition: 09:29 Chest Pain HPI - General Chief Complaint: ED Chest Pain Stated Complaint: CP Time Seen by Provider: 02/22/18 06:09 Source: patient Mode of arrival: ambulatory Limitations: no limitations Vital Signs Reviewed: Yes Nursing Notes Reviewed: Yes - History of Present Illness Severity scale (1-10): 7 - Related Data Home Medications Medication Instructions Recorded Confirmed Amlodipine Besylate 10 mg PO DAILY 02/16/18 02/22/18 Aspirin Enteric Coated [Aspirin EC] 81 mg PO DAILY 02/16/18 02/22/18 Bupropion HCl [Wellbutrin Xl] 300 mg PO DAILY 02/16/18 02/22/18 Cilostazol [Pletal] 100 mg PO BID 02/16/18 02/22/18 Clopidogrel [Plavix] 75 mg PO DAILY 02/16/18 02/22/18 Dapagliflozin Propanediol [Farxiga] 5 mg PO DAILY 02/16/18 02/22/18 Donepezil HCl [Aricept] 10 mg PO DAILY 02/16/18 02/22/18 Fenofibrate Nanocrystallized 145 mg PO DAILY 02/16/18 02/22/18 [Fenofibrate] Glimepiride [Amaryl] 4 mg PO DAILY 02/16/18 02/22/18 Isosorbide MONOnitrate (24 HR) 60 mg PO DAILY 02/16/18 02/22/18 [Imdur] Metformin HCl [Glucophage] 1,000 mg PO BID 02/16/18 02/22/18 Metoprolol Tartrate [Lopressor] 50 mg PO BID 02/16/18 02/22/18 Rosuvastatin [Crestor] 40 mg PO HS 02/16/18 02/22/18 Sertraline [Zoloft] 50 mg PO DAILY 02/16/18 02/22/18 Previous Rx's Medication Instructions Recorded Insulin Glargine,Hum.rec.anlog 25 unit SQ BID #0 02/18/18 [Basaglar Kwikpen U-100] Vancomycin Oral Soln [Firvanq] 125 mg PO QID 10 Days udc 02/18/18 Allergies Allergy/AdvReac Type Severity Reaction Status Date / Time No Known Allergies Allergy Verified 01/29/18 16:58 Constitutional: Denies: fever, chills ENT ED: Denies: congestion Cardiovascular: Reports: chest pain. Denies: dyspnea on exertion Respiratory: Denies: cough, dyspnea Gastrointestinal: Denies: abdominal pain, nausea, vomiting Musculoskeletal: Denies: back pain, neck pain Neurological: Denies: headache Chest Pain PMH - Past Medical History Medical history: Reports: coronary artery disease, CVA, diabetes, hyperlipidemia , hypertension Psychiatric history: Reports: no psych history - Social History Smoking Status: Current every day smoker Alcohol use: Reports: none Drug use: Reports: none Physical Exam - General Limitations: no limitations General appearance: alert, in no apparent distress - Head Head exam: atraumatic, normocephalic, normal inspection - Eye Eye exam: Present: normal appearance, PERRL, EOMI - ENT ENT exam: normal exam, normal oropharynx, mucous membranes moist - Neck Neck exam: Present: normal inspection, full ROM, trachea midline - Chest Chest inspection: Present: normal inspection, symmetric chest wall rise - Respiratory Respiratory exam: Present: normal lung sounds bilaterally - Cardiovascular Cardiovascular exam: Present: normal rhythm, tachycardia, normal heart sounds - Abdominal Exam Abdominal exam: Present: soft, Non-Tender. Absent: tenderness, distention, guarding, rebound, rigidity - Extremities Exam Extremities exam: Present: normal inspection, full ROM. Absent: tenderness, pedal edema - Neurological Exam Neurological exam: Present: alert, oriented X3 - Psychiatric Psychiatric exam: Present: normal affect, normal mood - Skin Skin exam: Present: warm, dry, intact, normal color Course Course Narrative: Patient is a sign out from day team, please see their notes for any additional details. In summary, patient is a 53 yo male with PMHx of diabetes, HTN, HLD, CAD, stent x2, c diff, recent pneumonia. He presents today due to chest pain that started in left chest and radiated to right, associated with dyspnea but denies N/V/D/abdominal pain. [facility] No established cardiology care, and out of home nitroglycerin. He was also tachycardic and hypoxic on presentation. Awaiting labs and imaging. Aspirin and nitro have been ordered. 07:28 troponin 0.62. EKG showed sinus tachycardia with mild ST elevation in 2 , 3, aVF less than 1 mm. Patient reassessed. He is still having some chest discomfort. Has not received nitroglycerin yet. No bleeding wrist. We will speak with cardiology and discussed starting heparin drip at this time and discuss EKG. Currently obtaining second EKG at this time. Chest x-ray negative for any acute cardio pulmonary process. Patient will require admission at this time. D-dimer elevated at 509, however, age adjusted would be negative for this patient as he is 53 years old and would be 540. 07:37 EKG #2 02/22/2018 at 07:31. Sinus tachycardia. Heart rate 104. Right axis deviation. Mild ST elevation in 2, 3, aVF that appears to be unchanged from EKG #1. There is some mild ST elevation in 2, 3, aVF on previous EKG on 02/16/2018. Cardiology has been paged to discuss. Blood sugar in the 800s. VBG, beta hydroxybutyrate, urinalysis have been ordered. Normal saline bolus ordered. 07:[address] Lord with cardiology, he states that he wants heparin drip started at this time and then will come in to see the patient. He has requested that the patient be nothing by mouth at this time. 09:28 Deandre Madsen with cardiology has evaluated the patient. No emergent catheter lab at this time. Continue to recommend heparin drip. Patient has been treated with IV insulin 10 units for hyperglycemia and repeat blood sugars down 400. This has been accepted by hospitalist at this time, Dr. Haile Vital Signs Temperature 98.1 F 02/22/18 06:05 Pulse Rate 118 02/22/18 06:05 Respiratory Rate 20 02/22/18 06:05 Blood Pressure 170/80 02/22/18 06:05 O2 Sat by Pulse Oximetry 96 02/22/18 06:05 Temperature 98.1 F 02/22/18 06:17 Pulse Rate 103 02/22/18 08:55 Respiratory Rate 20 02/22/18 08:55 Blood Pressure 130/110 02/22/18 08:55 O2 Sat by Pulse Oximetry 99 02/22/18 08:41 Oxygen Delivery Oxygen Delivery Room Air Chest Pain - MDM Narrative Medical decision making narrative: Patient is a sign out from day team, please see their notes for any additional details. In summary, patient is a 53 yo male with PMHx of diabetes, HTN, HLD, CAD, stent x2, c diff, recent pneumonia. He presents today due to chest pain that started in left chest and radiated to right, associated with dyspnea but denies N/V/D/abdominal pain. [facility]. No established cardiology care, and out of home nitroglycerin. He was also tachycardic and hypoxic on presentation. Awaiting labs and imaging. Aspirin and nitro have been ordered. 07:28 troponin 0.62. EKG showed sinus tachycardia with mild ST elevation in 2 , 3, aVF less than 1 mm. Patient reassessed. He is still having some chest discomfort. Has not received nitroglycerin yet. No bleeding wrist. We will speak with cardiology and discussed starting heparin drip at this time and discuss EKG. Currently obtaining second EKG at this time. Chest x-ray negative for any acute cardio pulmonary process. Patient will require admission at this time. D-dimer elevated at 509, however, age adjusted would be negative for this patient as he is 53 years old and would be 89. 07:37 EKG #2 02/22/2018 at 07:31. Sinus tachycardia. Heart rate 104. Right axis deviation. Mild ST elevation in 2, 3, aVF that appears to be unchanged from EKG #1. There is some mild ST elevation in 2, 3, aVF on previous EKG on 02/16/2018. Cardiology has been paged to discuss. Blood sugar in the 800s. VBG, beta hydroxybutyrate, urinalysis have been ordered. Normal saline bolus ordered. 07:[address] Lord with cardiology, he states that he wants heparin drip started at this time and then will come in to see the patient. He has requested that the patient be nothing by mouth at this time. 09:28 Deandre Madsen with cardiology has evaluated the patient. No emergent catheter lab at this time. Continue to recommend heparin drip. Patient has been treated with IV insulin 10 units for hyperglycemia and repeat blood sugars down 400. This has been accepted by hospitalist at this time, Dr. Haile Chest X-Ray 02/22/18 06:10 IMPRESSION: No acute cardiopulmonary findings. D/ / Yuri Nicholson / Yuri Nicholson Interpreting Provider: Yuri Nicholson 0920 hrs.: Cardiology and hospitalist are both here for admission of the patient then admit him and then taken to catheter lab later today. Patient's agreement with this plan. Impression is an STEMI and hyperglycemia with diabetes. - Medical Records Medical records reviewed: Yes I reviewed the patient's medical records. - Lab Data Lab results reviewed: Yes I reviewed the patient's lab results. Result diagrams: 02/22/18 06:20 02/22/18 06:42 Lab Results 02/22/18 02/22/18 02/22/18 Range/Units 06:19 06:20 06:42 WBC 11.2 H (4.3-11.1) K/mcL RBC 5.48 (4.19-5.50) M/mcL Hgb 16.6 (12.9-16.9) g/dL Hct 49.4 (37.5-50.1) % MCV 90.1 (83.0-100.0) fL MCH 30.3 (28.0-33.3) pg MCHC 33.6 (31.6-35.5) g/dL RDW 14.2 (11.5-14.5) % Plt Count 358 D (140-400) K/mcL MPV 10.6 (9.4-12.4) fL Immature Gran % 0.9 (0-4) % Seg Neutrophils % 59.2 % Lymphocytes % 25.8 % Monocytes % 12.0 % Eosinophils % 1.6 % Basophils % 0.5 % Neutrophils # 6.6 (1.6-8.9) K/mcL Lymphocytes # 2.9 (0.6-4.6) K/mcL Monocytes # 1.4 H (0.0-1.3) K/mcL Eosinophils # 0.2 (0.0-0.6) K/mcL Basophils # 0.1 (0.0-0.2) K/mcL PT 10.7 (9.4-12.1) Seconds INR 1.0 APTT 35.6 (26.0-36.0) Seconds D-Dimer 509 H (0-500) ng/mLFEU Heparin Anti-Xa, Unfract (0.30-0.70) IU/mL Sodium (136-145) mEq/L Potassium (3.5-5.1) mEq/L Chloride (98-107) mEq/L Carbon Dioxide (23-29) mEq/L BUN (6-20) mg/dL Creatinine (0.70-1.30) mg/dL Est GFR ( Amer) (> 60) Est GFR (Non-Af Amer) (> 60) BUN/Creatinine Ratio (6-26) Glucose (70-105) mg/dL Calculated Osmolality (280-300) Calcium (8.6-10.3) mg/dL Troponin I (< 0.04) ng/mL Urine Color (Yellow) Urine Clarity (Clear) Urine pH (5.0-8.0) pH Units Ur Specific [place] (1.010-1.025) Urine Protein (Neg-Trace) mg/dL Urine Glucose (UA) (Normal) mg/dL Urine Ketones (Negative) mg/dL Urine Blood (Negative) Urine Nitrite (Negative) Urine Bilirubin (Negative) Urine Urobilinogen (Normal) mg/dL Ur Leukocyte Esterase (Negative) Urine Microscopic RBC (0-3) per hpf Urine Microscopic WBC (0-3) per hpf Ur Squamous Epith Cells (None-Few) per lpf Urine Bacteria (None-Few) per hpf Hyaline Casts (None-Few) per lpf Ur Culture Indicated? (NO) 02/22/18 02/22/18 02/22/18 Range/Units 06:42 07:51 08:15 WBC (4.3-11.1) K/mcL RBC (4.19-5.50) M/mcL Hgb (12.9-16.9) g/dL Hct (37.5-50.1) % MCV (83.0-100.0) fL MCH (28.0-33.3) pg MCHC (31.6-35.5) g/dL RDW (11.5-14.5) % Plt Count (140-400) K/mcL MPV (9.4-12.4) fL Immature Gran % (0-4) % Seg Neutrophils % % Lymphocytes % % Monocytes % % Eosinophils % % Basophils % % Neutrophils # (1.6-8.9) K/mcL Lymphocytes # (0.6-4.6) K/mcL Monocytes # (0.0-1.3) K/mcL Eosinophils # (0.0-0.6) K/mcL Basophils # (0.0-0.2) K/mcL PT 10.5 (9.4-12.1) Seconds INR 0.9 APTT (26.0-36.0) Seconds D-Dimer (0-500) ng/mLFEU Heparin Anti-Xa, Unfract 0.04 L (0.30-0.70) IU/mL Sodium 128 L (136-145) mEq/L Potassium 4.1 (3.5-5.1) mEq/L Chloride 92 L (98-107) mEq/L Carbon Dioxide 22 L (23-29) mEq/L BUN 18 (6-20) mg/dL Creatinine 1.10 (0.70-1.30) mg/dL Est GFR ( Amer) > 60 (> 60) Est GFR (Non-Af Amer) > 60 (> 60) BUN/Creatinine Ratio 16 (6-26) Glucose 898 H* (70-105) mg/dL Calculated Osmolality 312 H (280-300) Calcium 9.9 (8.6-10.3) mg/dL Troponin I 0.62 H* (< 0.04) ng/mL Urine Color Yellow (Yellow) Urine Clarity Clear (Clear) Urine pH 6.0 (5.0-8.0) pH Units Ur Specific [place] > 1.030 H (1.010-1.025) Urine Protein Trace (Neg-Trace) mg/dL Urine Glucose (UA) >=1000 H (Normal) mg/dL Urine Ketones Negative (Negative) mg/dL Urine Blood Trace H (Negative) Urine Nitrite Negative (Negative) Urine Bilirubin Negative (Negative) Urine Urobilinogen Normal (Normal) mg/dL Ur Leukocyte Esterase Negative (Negative) Urine Microscopic RBC 0-3 (0-3) per hpf Urine Microscopic WBC 0-3 (0-3) per hpf Ur Squamous Epith Cells Few (None-Few) per lpf Urine Bacteria None Seen (None-Few) per hpf Hyaline Casts None Seen (None-Few) per lpf Ur Culture Indicated? NO (NO) - Radiology Data Radiology results reviewed: Yes I reviewed the patient's radiology results. Chest X-Ray 02/22/18 06:10 IMPRESSION: No acute cardiopulmonary findings. D/ / Yuri Nicholson / Yuri Nicholson Interpreting Provider: Yuri Nicholson - EKG Data EKG attestation: Yes I reviewed and interpreted this EKG. EKG results narrative: 02/22/2018 06:13. Mild ST elevation in 2, 3, aVF less than 1 mm. Sinus tachycardia. Heart rate 114. FL 142. QTC 465. QRS 93. Critical Care Time Critical Care Time: Yes Total Critical Care Time: 45 Attestation: Explained separately billable procedures. S.B.A.R. - S.B.AKaren Situation: Demographics, MOA Background: Presenting Complaint, Relevant PMH, Meds, & Allergies Assessment: Vital Signs, Course and respsone to treatment, Exam Concerns, Patient/Family Expectation, Pertinant Lab Results, Outstanding Labs Recommendation: Barrier(s) to disposition, Recommendation based on pending studies, treatments, or consults S.[email or web address].RGabriel Report Given to: Dr. Mic Dye Repor Time: 09:29 Attestation Statement - Attestation Attestation: This documentation is done with the assistance of Dragon dictation. Despite efforts made to ensure accuracy, there may be inaccuracies in suspension cord tier or spelling and typographical errors. I examined this patient and my medical decision-making was reviewed with the Resident Physician. I agree with the documented findings, disposition and treatment plan as described except to the extent set forth below. Patient was signed out from evening ER physician Dr. Brewer and seen this morning by Dr. Sood and myself, I agree with his evaluation management plans supervise care the patient's stay waiting on lab work had nitroglycerin and aspirin. Chest pain-free at this time waiting on labs and then disposition most likely admission.
[2018-02-22 06:56] LABS: Basophils # 0.1 K/mcL (0.0-0.2); Basophils % 0.5 %; Eosinophils # 0.2 K/mcL (0.0-0.6); Eosinophils % 1.6 %; Hematocrit 49.4 % (37.5-50.1); Hemoglobin 16.6 g/dL (12.9-16.9); Immature Granulocytes % 0.9 % (0-4); Lymphocytes # 2.9 K/mcL (0.6-4.6); Lymphocytes % 25.8 %; Mean Corpuscular HGB Conc 33.6 g/dL (31.6-35.5); Mean Corpuscular Hemoglobin 30.3 pg (28.0-33.3); Mean Corpuscular Volume 90.1 fL (83.0-100.0); Mean Platelet Volume 10.6 fL (9.4-12.4); Monocytes # 1.4 K/mcL (0.0-1.3); Neutrophils # 6.6 K/mcL (1.6-8.9); Platelet Count 358 K/mcL (140-400); Red Blood Count 5.48 M/mcL (4.19-5.50); Red Cell Distribution Width 14.2 % (11.5-14.5); Segmented Neutrophils % 59.2 %
[2018-02-22 07:02] LABS: Prothrombin Time 10.7 Seconds (9.4-12.1)
[2018-02-22 07:05] LABS: Activated Partial Thrombo Time 35.6 Seconds (26.0-36.0)
[2018-02-22 07:20] LABS: BUN/Creatinine Ratio 16 (6-26); Blood Urea Nitrogen 18 mg/dL (6-20); Calcium 9.9 mg/dL (8.6-10.3); Carbon Dioxide 22 mEq/L (23-29); Chloride 92 mEq/L (98-107); Potassium 4.1 mEq/L (3.5-5.1); Sodium 128 mEq/L (136-145); Troponin I 0.62 ng/mL (< 0.04); eGFR For Non-African Americans > 60 (> 60)
[2018-02-22 07:38] LABS: Glucose 898 mg/dL (70-105); Osmolality,Calculated 312 (280-300)
[2018-02-22] MEDS: Nitroglycerin 0.4 MG TAB.SUBL SL PRN ×2 (07:42→07:47)
[2018-02-22] MEDS ORDERED: 0.9 % Sodium Chloride 1,000 ML IVC ONE (07:42)
[2018-02-22] MEDS ORDERED: *HR* Heparin 5,000 UNIT/ML VIAL IVP PRN ×2 (07:54)
[2018-02-22] MEDS ORDERED: *HR* Heparin 5,000 UNIT/ML VIAL IVP ONE (07:54)
[2018-02-22] MEDS ORDERED: Insulin Human Regular 10 UNIT in 0.9 % Sodium Chloride 10 ML IV ONE (07:57)
[2018-02-22] MEDS ORDERED: Heparin 25,000 UNIT/500 ML D5W 25,000 UNIT/500 ML BAG IVC SCH (08:00)
[2018-02-22 08:12] LABS: Bilirubin,Urine Negative (Negative); Blood,Urine Trace (Negative); Clarity,Urine Clear (Clear); Color,Urine Yellow (Yellow); Glucose,Urine (UA) >=1000 mg/dL (Normal); Ketones,Urine Negative (Negative); Leukocyte Esterase,Urine Negative (Negative); Nitrite,Urine Negative (Negative); Protein,Urine Trace mg/dL (Neg-Trace); Specific Gravity,Urine > 1.030 (1.010-1.025); Urobilinogen,Urine Normal (Normal)
[2018-02-22 08:28] LABS: Bacteria,Urine None Seen per hpf (None-Few); Hyaline Casts,Urine None Seen per lpf (None-Few); RBC,Urine 0-3 per hpf (0-3); Squamous Epithelial Cell,Urine Few per lpf (None-Few)
[2018-02-22 08:29] LABS: WBC,Urine 0-3 per hpf (0-3)
[2018-02-22 08:39] LABS: Heparin anti-factor XA UFH 0.04 IU/mL (0.30-0.70)
[2018-02-22 08:40] LABS: INR 0.9; Prothrombin Time 10.5 Seconds (9.4-12.1)
--- NOTE | 2018-02-22 08:58 | Pre-Sedation Evaluation ---
Pre-sedation evaluation - Pre-sedation checklist Date of procedure: 02/22/18 Procedure: [facility] Recent Vitals: Last Vital Signs Temp 98.1 F 02/22/18 06:17 Pulse 103 02/22/18 08:55 Resp 20 02/22/18 08:55 BP 130/110 02/22/18 08:55 Pulse Ox 99 02/22/18 08:41 H&P (including ROS) documented in medical record: Yes Previous reaction to sedatives/anesthetics: No Dietary Status: NPO after Midnight Airway Assessment: Patient can open mouth completely, TMJ function normal ASA Classification *see protocol: CLASS II-Mild systemic disease Plan of Care: Pt appropriate candidate for procedure/moderate/conscious sedation , Risks/benefits of procedure/sedation discussed w/ patient/family Cardiac Registry (Cardio Only) - Functional Capacity Functional Capacity: >=4 METS with symptoms - Clincal Frailty Scale Clinical Frailty Scale: Managing Well
[2018-02-22] MEDS ORDERED: Insulin Regular, Human 100 UNIT/ML IV ONE (09:44)
--- NOTE | 2018-02-22 10:06 | Cardiology Consult Note ---
<CarolineDeandre R - Last Filed: 02/22/18 10:03> Date of Encounter: 02/22/18 Time of Encounter: 10:03 Assessment and Plan (1) NSTEMI (non-ST elevated myocardial infarction) Current Visit: Yes Status: Acute CP started 4 hours ago, similar to prior anginal equivalent. CP 2/10 currently. Initially troponin 0.62--trend for total of 3. EKG no significant changes. Known CAD hx with positive stress test inferolateral segment 11/2017. Declined LHC at that time. Pt currently on heparin gtt. Start ASA, Statin, BB. TTE to evaluate structure and function. Recommend LHC. R/B/A discussed. Pt agrees to proceed. LHC later today. Continue to follow. Will also consult social work with report of being homeless. (2) CAD (coronary artery disease) Current Visit: Yes Status: Acute Known CAD with hx PCI. ASA, Statin, BB. Qualifiers: Coronary Disease-Associated Artery/Lesion type: [place] artery [place] vs. transplanted heart: poarch heart Associated angina: with unstable angina Qualified Code(s): I25.110 - Atherosclerotic heart disease of [place] coronary artery with unstable angina pectoris Discussion w patient/family: The assessment and plan as outlined above was discussed with the patient and/or family members who expressed understanding and agreement. All questions were answered. Thank you for involving us in the care of your patient. Please call with any questions. I will discuss all the above with Dr. Lord and make changes as necessary. History of Present Illness Consult date: 02/22/18 Consult reason: NSTEMI Chief complaint: chest pain History of present illness: Mr. Best is a 53 year old male with PMHx of diabetes, HTN, HLD, hx of CAD s/ p PCI, recent c diff, recent PNA. He presents to ED today due to chest pain that started in his left chest and radiated to right side, started approximately 4 hours ago, associated with dyspnea but denies N/V/D/abdominal pain. States it feels like previous [place]. Pt had a positive stress test 11/2017 in inferolateral segment, declined LHC at that time. Troponin 0.62. Cardiology consulted for further recs. Minimal ECG ST changes. CP improved with nitro on admission. Current CP 2/10. Of note, pt reports he has been homeless. Past Med Surg Social Fam HX - Past Medical History Medical history: coronary artery disease, CVA, diabetes, hyperlipidemia, hypertension Psychiatric history: no psych history - Past Surgical History Additional surgical history: abdominal surgery - Social History Smoking Status: Current every day smoker Smokeless Tobacco Status: No Alcohol use: none Drug use: none Medications and Allergies Amlodipine Besylate 10 mg PO DAILY 02/16/18 [History] Aspirin Enteric Coated [Aspirin EC] 81 mg PO DAILY 02/16/18 [History] Bupropion HCl [Wellbutrin Xl] 300 mg PO DAILY 02/16/18 [History] Cilostazol [Pletal] 100 mg PO BID 02/16/18 [History] Clopidogrel [Plavix] 75 mg PO DAILY 02/16/18 [History] Dapagliflozin Propanediol [Farxiga] 5 mg PO DAILY 02/16/18 [History] Donepezil HCl [Aricept] 10 mg PO DAILY 02/16/18 [History] Fenofibrate Nanocrystallized [Fenofibrate] 145 mg PO DAILY 02/16/18 [History] Glimepiride [Amaryl] 4 mg PO DAILY 02/16/18 [History] Isosorbide MONOnitrate (24 HR) [Imdur] 60 mg PO DAILY 02/16/18 [History] Metformin HCl [Glucophage] 1,000 mg PO BID 02/16/18 [History] Metoprolol Tartrate [Lopressor] 50 mg PO BID 02/16/18 [History] Rosuvastatin [Crestor] 40 mg PO HS 02/16/18 [History] Sertraline [Zoloft] 50 mg PO DAILY 02/16/18 [History] Insulin Glargine,Hum.rec.anlog [Basaglar Kwikpen U-100] 25 unit SQ BID #0 [Rx] Vancomycin Oral Soln [Firvanq] 125 mg PO QID 10 Days udc 02/18/18 [Rx] 3 Allergy/AdvReac Type Severity Reaction Status Date / Time No Known Allergies Allergy Verified 01/29/18 16:58 All Systems Review: The remainder of the systems were reviewed and are negative - Cardiovascular Cardiovascular: as per HPI, chest pain at rest, chest pain with exertion, dyspnea at rest, dyspnea on exertion - Respiratory Respiratory: dyspnea Physical Examination Vital Signs, Last 4 Hours Resp BP 02/22/18 09:56 20 159/88 Vital Signs Temp Pulse Resp BP Pulse Ox 02/22/18 09:56 20 159/88 02/22/18 08:55 103 20 130/110 02/22/18 08:41 97 20 151/71 99 02/22/18 08:22 106 19 159/107 98 02/22/18 07:46 140/80 02/22/18 07:45 107 19 163/93 97 02/22/18 06:17 98.1 F 118 20 170/80 96 02/22/18 06:05 98.1 F 118 20 170/80 96 Intake and Output 02/21/18 02/22/18 02/22/18 23:59 07:59 15:59 Intake Total 1010 / 1010 Balance 1010 / 1010 Intake: IV Fluids 1010 / 1010 HumuLIN R 10 UNIT In Normal 10 / 10 Saline Flush 10 ML @ 1212 mls/ hr IV ONCE ONE Rx#:[id number] 0.9 % Sodium Chloride 1,000 ML 1000 / 1000 @ 999 mls/hr IVC .Q1H1M ONE Rx# :[id number] Other: Weight 90.718 kg Blood Glucose* 898 Patient Weight 02/22/18 23:59 Weight 90.718 kg General: Conversant, No Apparent Distress HEENT: Atraumatic, Normocephaly, Mucus Membranes Moist Neck: No JVD, Normal carotid pulses Cardiac: Reg Rate and Rhythm, Normal S1 and S2, No Murmur Lungs: Normal Breath Sounds, No Wheeze, Rales, Rhonchi Neuro: Alert and responsive, No focal deficits noted Abdomen: Soft, Non-Tender Skin: No rashes noted on visualized skin Musculoskeletal: No Chest Wall Tenderness Extremities: No Clubbing, No Cyanosis, No Edema, Normal Pulses Results 02/22/18 06:20 02/22/18 06:42 Short CBC 02/22/18 Range/Units 06:20 WBC 11.2 H (4.3-11.1) K/mcL Hgb 16.6 (12.9-16.9) g/dL Hct 49.4 (37.5-50.1) % Plt Count 358 D (140-400) K/mcL Neutrophils # 6.6 (1.6-8.9) K/mcL BMP 02/22/18 Range/Units 06:42 Sodium 128 L (136-145) mEq/L Potassium 4.1 (3.5-5.1) mEq/L Chloride 92 L (98-107) mEq/L Carbon Dioxide 22 L (23-29) mEq/L BUN 18 (6-20) mg/dL Creatinine 1.10 (0.70-1.30) mg/dL Glucose 898 H* (70-105) mg/dL Calcium 9.9 (8.6-10.3) mg/dL Cardiac Enzymes 02/22/18 Range/Units 06:42 Troponin I 0.62 H* (< 0.04) ng/mL Urine 02/22/18 Range/Units 07:51 Urine Color Yellow (Yellow) Urine Clarity Clear (Clear) Urine pH 6.0 (5.0-8.0) pH Units Ur Specific [place] > 1.030 H (1.010-1.025) Urine Protein Trace (Neg-Trace) mg/dL Urine Glucose (UA) >=1000 H (Normal) mg/dL Impressions Chest X-Ray 02/22/18 06:10 IMPRESSION: No acute cardiopulmonary findings. D/ / Yuri Nicholson / Yuri Nicholson Interpreting Provider: Yuri Nicholson Active Medications Heparin Sodium (Porcine) (Heparin) 4,000 unit IVP Q6HR PRN PRN Reason: SEE COMMENTS Stop: 08/24/18 07:55 Heparin Sodium (Porcine) (Heparin) 2,000 unit IVP Q6H PRN PRN Reason: SEE COMMENTS Stop: 08/24/18 07:55 Heparin Sodium/Dextrose (Heparin 25,000 Unit/500 Ml D5w) 25,000 unit in 500 mls @ 19.958 mls/hr IVC .Q24H JONNA; 11 UNIT/KG/HR PRN Reason: Protocol Stop: 08/24/18 08:01 Last Admin: 02/22/18 08:48 Dose: 11 unit/kg/hr, 19.958 mls/hr Nitroglycerin (Nitroglycerin) 0.4 mg SL Q5MIN PRN PRN Reason: Chest Pain Stop: 08/24/18 06:15 Last Admin: 02/22/18 07:47 Dose: 0.4 mg - Imaging and Cardiology Stress Test: report reviewed - EKG Interpretation EKG results cardiology: personally reviewed Consult Discharge Plan - Plan Additional Instructions: RISK FACTORS: STOP SMOKING: If you smoke, STOP. Smoking or tobacco use significantly increases your risk of heart disease because nicotine causes the arteries to narrow or constrict. It also causes fats to stick to the artery. Your chances of having a heart attack are greatly increased if you continue to smoke. For more information, call the education line for smoking cessation 7-041-WMXBYDK EAT A LOW FAT/CHOLESTEROL/SODIUM DIET: This diet may help reduce your chances of having a heart attack. LIFTING: Avoid lifting anything more than 10 pounds for 5-7 days Prior to straining, laughing, sneezing and/or coughing, apply manual pressure directly over insertion site. ACTIVITY: You may walk or climb stairs as tolerated You can resume sexual activity as tolerated In general, you are encouraged to engage in a minimum of 30 minutes or more of moderate intensity physical activity, such as brisk walking, daily or at least 3 -4 times weekly BATHING Do not submerge the site into water (bath tub, hot tub, swimming pool) for 1 week. This can be a source for infection into the blood stream. You may shower after 24 hours SITE CARE: After 24 hours, you may remove the dressing and leave the site open to air. Keep the site clean and dry. Clean gently and pat dry. You can expect bruising and tenderness that gradually resolve within a week or two. Return to work as instructed per your physician Resume driving as instructed per physician Keep all scheduled follow up appointments Resume medications as instructed IMPORTANT: If prescribed a Platelet Aggregation Inhibitor such as, Plavix, Brilinta or Effient: Duration of therapy is minimum one year These medications are often used in combination with Aspirin in prevention of future heart attacks Never discontinue unless consult with your Wholesale Account Executive STROKE (CVA) Risk factors for a stroke are: Age, cigarette smoking, diabetes, excessive alcohol consumption, family history, high blood pressure, overweight, physical inactivity, prior stroke, heart attack, diagnosis of carotid artery stenosis or other artery disease. Warning signs: Sudden numbness or weakness of the face, arm or leg; especially on one side of the body, sudden confusion, trouble speaking or understanding, sudden trouble seeing in one or both eyes, sudden trouble walking, dizziness, loss of balance or coordination, sudden severe headache with no cause. Call 911 or go to the Emergency Room. CONGESTIVE HEART FAILURE: If you have been diagnosed with Congestive Heart Failure (CHF) and your symptoms return, make an appointment with your physician Weigh yourself daily. Notify your physician if you have a weight gain of two or more pounds in one day or five or more pounds in one week. If you experience any difficulty breathing, please call 911 BLEEDING: Although the risk of bleeding is minimal, it can happen. If you have any bleeding from the site, apply firm pressure above the puncture site for 10-15 minutes. If the bleeding does not stop, continue manual pressure and call 911 Contact your physician if: You develop a fever greater than 101 degrees Fahrenheit Your site becomes reddened or has any drainage You have an increase in pain or burning at the site or if a large knot forms at the site. If you experience chest pain, shortness of breath, dizziness, or extreme tiredness, stop the activity and rest. Please notify your physicians office if you experience any of these symptoms and they are not relieved by rest please call 911! Referrals: Becky Russell CNP [Partnered Physician] - (Office will call patient at home with follow up appointment) Ahsan Joe MD [Primary Care Provider] - 03/03/18 10:30 am <Dewayne Lord - Last Filed: 02/23/18 14:16> Date of Encounter: 02/22/18 - Attending Attestation I examined this patient and my medical decision-making was reviewed with the Resident Physician. I agree with the documented findings, disposition and treatment plan as described except to the extent set forth below. CC: chest pain HPI: Pt presents for evalutation of sudden onset left sided chest pain, started at rest, radiated across chest into right breast, 8/10 at most severe, associated with dyspnea, but not nausea or diaphoresis. He reports chest pain the same as with previous [place], but has lasted longer, He has had some improvement with sl ntg,reducing pain from 8 to 2/10. He has known hx CAD, positive stress test for reversible ischemia in 11/27, deferred LHC at that time. PMH: reviewed ROS: reviewed PE: pt seen and examined, agree with findings as documented, with addition of significant speech impediment IMP/Plan: 1. Unstable angina, recommend proceed with left heart cath possible this am, continue IV heparin, NPO, pending cath. Risks and benefits discussed, pt agrees to proceed 2. CAD: severe triple vessel CAD post CABG 3. PVD: previous stents bilat below the knee performed in [place] 4. Tobacco abuse: Pt continues to smoke against medical advice. Assessment and Plan Discussion w patient/family: The assessment and plan as outlined above was discussed with the patient and/or family members who expressed understanding and agreement. All questions were answered. Thank you for involving us in the care of your patient. Please call with any questions. History of Present Illness History of present illness: Mr. Best is a 53 year old male All Systems Review: The remainder of the systems were reviewed and are negative Physical Examination Vital Signs, Last 4 Hours Temp Pulse Resp BP Pulse Ox 02/23/18 11:24 98.2 F 75 18 105/72 95 Results 02/23/18 04:34 02/23/18 04:34 Lab Results 02/22/18 02/23/18 02/23/18 23:11 04:34 04:34 WBC 15.6 H Hgb 15.5 Hct 45.2 Plt Count 335 Sodium 132 L Potassium 4.1 Chloride 102 Carbon Dioxide 22 L BUN 18 Creatinine 0.98 Glucose 374 H Calcium 9.2 Troponin I 70.59 H*
[2018-02-22] MEDS ORDERED: *HR* Dextrose 50 % in Water (Syg) 50 ML SYRINGE IVP PRN (11:19)
[2018-02-22] MEDS ORDERED: D5% in Water 1,000 ML IVC PRN (11:19)
[2018-02-22] MEDS ORDERED: Dextrose Gel 15 GM/37.5 ML TUBE PO PRN ×2 (11:19)
--- NOTE | 2018-02-22 11:20 | Internal Med History&Physical ---
Date of Encounter: 02/22/18 Time of Encounter: 11:17 Internal Medicine - H&P: HPI Chief complaint: Chest pain Admitted From: Home Plans for Post Hospital Care: Home History of present illness: Mr. Best is a 53 year old male with a past medical history of coronary artery disease, status post PCI, diabetes type 2 on insulin, hypertension, recent pneumonia who presented with left-sided chest pain that he experienced when he woke up this morning. He states this felt exactly like his prior [place] pain. Patient underwent a stenting roughly about 1-1/2 years ago and has been on dual antiplatelets. He had a positive stress test in November of this year but refused to undergo a cardiac catheterization. He was given nitroglycerin in the ER with improvement of his chest pain and cardiology was probably consulted. His EKG showed minimal ST changes with no clear ST elevation. History point was slightly elevated at 0.62 and cartilage was probably consulted. He has been placed on heparin drip and aspirin and statin and beta kristine have been started an echo has been ordered and the patient will be taken to stepdown unit for undergoing a left heart catheter later on today. His chest pain at the time of my examination is rated as 2/10 His chest pain initially was rated at 9/10 in severity felt like to be a pressure sensation on the left side of his chest but did not radiate into his neck or arm. It got really to nitroglycerin but did not have any worsening factors. Patient does state that he has not been very compliant with his medications given his social situations. His blood sugars also noted to be greater than 800 in the ER and insulin has been given. He denies any nausea vomiting diarrhea or abdominal pain at this point. He otherwise looks comfortable and agrees to undergoing the left heart catheter.. Past Med Surg Social Fam HX - Past Medical History Medical history: coronary artery disease, CVA, DVT, diabetes, hyperlipidemia, hypertension Additional medical history: Left facial droop. Garbled speech. R leg DVT Psychiatric history: anxiety, depression - Past Surgical History Additional surgical history: abdominal surgery, Pt states he has 1 kidney - Social History Smoking Status: Current every day smoker Packs per day: 1.5 Smokeless Tobacco Status: No Alcohol use: none Drug use: marijuana - Additional Family History Additional family history: Family history positive for diabetes in father Internal Medicine - H&P: Meds Amlodipine Besylate 10 mg PO DAILY 02/16/18 [History] Aspirin Enteric Coated [Aspirin EC] 81 mg PO DAILY 02/16/18 [History] Bupropion HCl [Wellbutrin Xl] 300 mg PO DAILY 02/16/18 [History] Cilostazol [Pletal] 100 mg PO BID 02/16/18 [History] Clopidogrel [Plavix] 75 mg PO DAILY 02/16/18 [History] Dapagliflozin Propanediol [Farxiga] 5 mg PO DAILY 02/16/18 [History] Donepezil HCl [Aricept] 10 mg PO DAILY 02/16/18 [History] Fenofibrate Nanocrystallized [Fenofibrate] 145 mg PO DAILY 02/16/18 [History] Glimepiride [Amaryl] 4 mg PO DAILY 02/16/18 [History] Isosorbide MONOnitrate (24 HR) [Imdur] 60 mg PO DAILY 02/16/18 [History] Metformin HCl [Glucophage] 1,000 mg PO BID 02/16/18 [History] Metoprolol Tartrate [Lopressor] 50 mg PO BID 02/16/18 [History] Rosuvastatin [Crestor] 40 mg PO HS 02/16/18 [History] Sertraline [Zoloft] 50 mg PO DAILY 02/16/18 [History] Insulin Glargine,Hum.rec.anlog [Basaglar Kwikpen U-100] 25 unit SQ BID #0 [Rx] Vancomycin Oral Soln [Firvanq] 125 mg PO QID 10 Days udc 02/18/18 [Rx] 3 Allergy/AdvReac Type Severity Reaction Status Date / Time No Known Allergies Allergy Verified 01/29/18 16:58 All Systems PM: A 10-system review of systems was performed and is negative for pertinent findings except as documented above in the HPI. - Constitutional Vitals: Temp Pulse Resp BP Pulse Ox 98.0 F 99 18 156/85 95 02/22/18 10:29 02/22/18 10:29 02/22/18 10:29 02/22/18 10:29 02/22/18 10:29 Exam: GENERAL: Alert, moderate distress, cooperative EYES: PERRLA, EOMI EARS: External ears normal, canals clear OROPHARYNX: Lips, mucosa, and tongue normal. Teeth and gums normal. Oropharynx normal. NECK: No jugulovenous distention, No carotid bruits, Carotid pulse normal contour, Supple LUNGS: Lungs clear to auscultation, Good diaphragmatic excursion CARDIAC: Normal S1 and S2; no rubs, murmurs, or gallops ABDOMEN: Abdomen soft, non-tender, BS normal, No masses or organomegaly EXTREMITIES: Extremities normal, no deformities, edema, clubbing or skin discoloration. Good capillary refill., No ulcers NEURO: Gait normal. Reflexes normal and symmetric. Sensation grossly intact, Cranial nerves II-XII intact PULSES: 2+ radial, 2+ carotid Rest of the exam is non contributory Internal Med - H&P Results - Labs CBC & Chem 7: 02/22/18 06:20 02/22/18 06:42 - EKG Data -: EKG Interpreted by Myself (Nonspecific ST-T wave changes in the 23 and aVF no clear ST elevations) - Assessment and plan (1) NSTEMI (non-ST elevated myocardial infarction) Current Visit: Yes Status: Acute Assessment and plan: Patient has been diagnosed with non-ST elevation myocardial infarction. He has been heparinized and will be taken for cardiac catheterization today. We will continue his aspirin, statin, beta blockers. Cardiology data been consulted and seen the patient. He will be nothing by mouth for Later on today. Hemodynamically he is stable and will be discharged to stepdown unit for full admission Check echo (2) Diabetes mellitus Current Visit: No Status: Chronic Assessment and plan: Poorly controlled. Check A1c His blood sugar was 400 after 10 units of short-acting insulin were given He does take 25 units twice a day of glargine. I will substitute this with 20 units of Levemir at least while on the floor and then place him on high-dose sliding scale. Will hold his oral hypoglycemics at this point and diabetes education will be provided. Qualifiers: Diabetes mellitus type: type 2 Diabetes mellitus meterman insulin use: with meterman use Diabetes mellitus complication status: with hyperglycemia Qualified Code(s): E11.65 - Type 2 diabetes mellitus with hyperglycemia; Z79.4 - USP (current) use of insulin (3) Essential hypertension Current Visit: No Status: Chronic Assessment and plan: Resume all home medications and continue to monitor closely. (4) Tobacco abuse Current Visit: No Status: Chronic Assessment and plan: Stat high-dose nicotine patch. - Time Spent With Patient Total time spent is greater than 50% in coordination of care (as documented) at patient's floor/unit and/or counseling patient: Greater than 35 minutes
[2018-02-22] MEDS ORDERED: Naloxone 0.4 MG/ML INJ IVP PRN (11:25)
[2018-02-22] MEDS: Insulin LISPRO 300 UNITS/3 ML VIAL SQ SCH ×3 (11:48→20:09)
[2018-02-22] MEDS: Nicotine 21 MG PATCH.TD24 TD SCH (11:48)
[2018-02-22 13:01] LABS: VBG HCO3 27 mEq/L (21-27); VBG PCO2 40 mmHg (41-51); VBG PH 7.43 pH Units (7.32-7.42); VBG PO2 140 mmHg (25-50)
[2018-02-22] MEDS ORDERED: Verapamil 5 MG/2 ML VIAL ONE (14:40)
[2018-02-22] MEDS ORDERED: Heparin 1,000 UNITS/500 mL 500 ML ONE (14:41)
[2018-02-22] MEDS ORDERED: *HR* Heparin 10,000 UNIT/10 ML VIAL ONE (14:41)
[2018-02-22] MEDS ORDERED: 0.9 % Sodium Chloride 1,000 ML ONE ×2 (14:41→15:47)
[2018-02-22] MEDS ORDERED: ISOVUE-370 200 ML INFUS..BTL IV ONE ×2 (14:41→16:24)
[2018-02-22] MEDS ORDERED: Nitroglycerin 1,000 MCG/10 ML VIAL IV ONE (14:41)
[2018-02-22] MEDS ORDERED: *HR* Midazolam HCl 5 MG/5 ML VIAL IVP ONE (15:56)
[2018-02-22] MEDS ORDERED: *HR* FentaNYL (PF) 100 MCG/2 ML VIAL ONE (15:56)
[2018-02-22] MEDS ORDERED: Tirofiban 12.5 MG/250ML 12.5 MG/250 ML BAG ONE (16:30)
[2018-02-22] MEDS ORDERED: *HR* Ticagrelor 90 MG TABLET ONE (16:30)
[2018-02-22] MEDS ORDERED: Ondansetron 4 MG/2 ML VIAL IVP PRN (16:34)
--- NOTE | 2018-02-22 16:38 | Event Note ---
Date of Encounter: 02/22/18 Time of Encounter: 16:30 - Cardiology Event Note OM 100% instent thrombus sp PCI LALO x 1 with good result. EF50%, otherwise mild disease. Will switch to 180mg ticagrelor load and BID but may have to do plavix given history of questionable compliance.
[2018-02-22] MEDS ORDERED: Tirofiban 12.5 MG/250ML 12.5 MG/250 ML BAG IVC SCH (16:45)
--- NOTE | 2018-02-22 16:51 | Invasive Diagnostic Lab Proc ---
Name: Zhao Best Date of Study: 02/22/2018 Date: 1965 Ht: 65.0in Medical Record#: [id number] Age: 53 Wt: 201.06lb Gender: Male BSA: 1.98 Order #: [id number] BMI: 33.46 Physicians Procedure Physician: Moody Shelby MD, [facility] Referring MD: Referring MD: Staff Name Position Time In Giovana Do RT (R) Monitor 04:01 PM Angel Sharmila RT (R) Scrub 04:01 PM Jaspal Campbell RN Plans Examiner 04:01 PM Indications Indication Non-Stemi Procedures Performed Procedure L HRT ARTERY/VENTRICLE ANGIO PRQ CARD REVASC CA 1 VSL Pre-Procedure Checklist Informed consent is complete signed and on chart. H&P is on chart. ID band is on and ID verified with patient. Patient NPO for procedure The procedure was described for the patient and questions were answered. Blood Pressure: 156/85 ECG is on chart. Plan of Care Patient will tolerate the procedure without complications. Adequate level of comfort will be maintained. Hemodynamics will remain stable Patient will recover from procedure without complications. Respiratory function will be maintained. Cardiac rhythm will remain stable. Patient temperature will be maintained. Patient and/or family have verbalized understanding of the procedure. Patient Education Chief Complaint/Reason for Test: Cardiac Cath Developmental Category: Adult (18-64 years) Developmentally Appropriate for Age: Yes Learning Barriers: None Education Needs: Procedure Education Method: Verbal Information Taught: Cardiac Cath Educational Evaluation: Able to repeat information Intravenous Access Time IV Size Location DC'd Fluid/Drip Rate Units RN 04:01 PM 20g 1 07/16" Patent On Arrival Rt Arm 0.9NaCl 25 ml/hr Jaspal Campbell RN Allergies No Known Allergies Vital Signs Time BP (mmHg) HR (bpm) O2 Sat. RR (bpm) LOC 04:02 PM / % 5 = Fully awake and oriented or at pre-proc level 04:02 PM / % 4 = Oriented but drowsy 04:17 PM / % 4 = Oriented but drowsy 04:01 PM 158 / 91 80 96 % 22 04:04 PM 155 / 92 89 93 % 21 04:09 PM 165 / 105 89 93 % 22 04:14 PM 165 / 96 88 93 % 13 04:19 PM 148 / 90 86 93 % 19 04:24 PM 142 / 88 80 92 % 19 04:29 PM 119 / 73 94 92 % 21 04:34 PM 133 / 88 91 92 % 15 Procedural Medications Time Medication Dose Units Method Given By 04:01 PM Oxygen 2 L/min nasal cannula Jaspal Campbell RN 04:01 PM Versed 2 mg Intravenous Jaspal Campbell RN 04:01 PM Fentanyl 50 mcg Intravenous Jaspal Campbell RN 04:09 PM Lidocaine 2% 20 ml Subcutaneous Moody Shelby MD, FACC 04:14 PM Versed 1 mg Intravenous Jaspal Campbell RN 04:14 PM Fentanyl 25 mcg Intravenous Jaspal Campbell RN 04:19 PM Heparin 4000 units Intravenous Jaspal Campbell RN 04:21 PM Versed 1 mg Intravenous Jaspal Campbell RN 04:21 PM Fentanyl 25 mcg Intravenous Jaspal Campbell RN 04:25 PM Nitroglycerin 200 mcg Intracoronary Moody Shelby MD 04:28 PM Nitroglycerin 200 mcg Intracoronary Moody Shelby MD 04:30 PM Brilinta 180 mg Orally Jaspal Campbell RN 04:32 PM Aggrastat Bolus: 46 ml Intravenous Jaspal Campbell RN 04:32 PM Aggrastat 12.5mg/250ml 16.5 ml Intravenous Jaspal Campbell RN ASA Classification: CLASS II- Mild systemic disease (i.e. well-controlled diabetes, hypertension, asthma, cigarette smoking) Danial Score Preprocedure Postprocedure Activity 2- Moves 4 extremities sustained head lift Activity 2- Moves 4 extremities sustained head lift Circulation 2- SBP +/= 20 points of pre-anesthetic level Circulation 2- SBP +/= 20 points of pre-anesthetic level Consciousness 2- Awake and alert oriented x 3 Consciousness 2- Awake and alert oriented x 3 O2 Saturation 2- Able to maintain O2 satruation of 92% on room air O2 Saturation 2- Able to maintain O2 satruation of 92% on room air Respiratory 2- Able to deep breathe and cough well Respiratory 2- Able to deep breathe and cough well Total Score 10 Total Score 10 Contrast Agent: Isovue Diagnostic Contrast: 116 ml Total Contrast: 116 ml Fluoro Dose: 33 mGy Activated Clotting Time Time Seconds to Clot 04:19 PM 151 04:35 PM 219 Procedure Log Time Note Enter By 02:50 PM CathStat 03:58 PM Vitals capture started with the following parameters, Patient=Adult, Interval=5 min, Initial Ptosfxsk=219 mmHg, Deflation Rate=3 mmHg, Cuff placed on Right Arm 04: PM Recorded ECG: HR=86 Condition=Condition 1 04: PM 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 : PM Procedure start 16: PM Time: 16: Oxygen on at 2 L/min per nasal cannula by Jaspal Campbell RN : PM HR=80 bpm, ZQUE=761/91 mmhg, SpO2=96.0 %, Resp=22 B/min 04: PM Hair removed from procedure site in procedure lab using clippers. Bilateral groin prepped with Chloraprep by Giovana Do RT (R), then patient was draped. Skin intact. PM Patient charges- Angio tray pack, Navilyst 3mm J, Pulse Oximetry and ACIST tubing and transducer tw: PM Giovana Do RT (R) Position: Monitor Time in: : PM Sharmila Ortiz RT (R) Position: Scrub Time in: :: PM Jaspal Campbell RN Position: Plans Examiner Time in: : PM Time: 16:01 Versed 2 mg Intravenous Given by Jaspal Campbell RN PM Time: 16:01 Fentanyl 50 mcg Intravenous Given by Jaspal Campbell RN : PM Time: 16:02 Patient comfortable and pain free: Yes PM Time: 16:02LOC: 5 = Fully awake and oriented or at pre-proc level PM HR=89 bpm, HJNL=502/92 mmhg, SpO2=93.0 %, Resp=21 B/min 04:06 PM Pressure channel 1 zeroed. 04:07 PM Time out performed according to hospital policy PM ASA Class CLASS II- Mild systemic disease (i.e. well-controlled diabetes, hypertension, asthma, cigarette smoking) : PM HR=89 bpm, ILEU=869/105 mmhg, SpO2=93.0 %, Resp=22 B/min 04:09 PM Time: 16:09 20 ml Lidocaine 2% to left groin Subcutaneous Given by Moody Shelby MD, [facility] twilson 04:11 PM Access obtained by percutaneous puncture. 6Fr 10cm Terumo Perry sheath placed in left Femoral artery. [id number] twilson 04:12 PM 5Fr FL 4 catheter inserted over the wire DN twilson 04:12 PM Wire removed twilson :12 PM Recorded Pressure: Ao, HR=76, Condition=Condition 1 (Aorta) Ao 99/67/83 04:13 PM LCA angiography performed in multiple views. twilson 04:13 PM Lesion found in 1st Marginal. Pre Stenosis: 100 Pre MARCO Flow: 0: No Flow/No perfusion twilson 04:13 PM Circumflex, Obtuse Marginal, Left Posterior Descending, and Left Posterolateral Coronary Arteries with 100 % stenosis. If graft is supplying this area, 0 % stenosis twilson 04:13 PM Wire reinserted. tw:13 PM Catheter removed twilson :13 PM 5Fr FR 4 catheter inserted over the wire DN twilson 04:14 PM Coronary Dominance: Left twilson 04:14 PM HR=88 bpm, GFWG=244/96 mmhg, SpO2=93.0 %, Resp=13 B/min 04:14 PM Time: 16:14 Versed 1 mg Intravenous Given by Jaspal Campbell RN twilson 04:15 PM Time: 16:14 Fentanyl 25 mcg Intravenous Given by Jaspal Campbell RN twilson 04:15 PM Lesion found in Proximal RCA. Pre Stenosis: 30 Pre MARCO Flow: twilson 04:15 PM Right Coronary, Right Posterior Descending Arteries with Right Posterolateral and Acute Marginal branches with 30 % stenosis. If graft is supplying this area, 0 % stenosis twilson 04:15 PM Wire reinserted. twilson 04:15 PM Catheter removed twilson 04:15 PM Inflation device was opened. twilson :16 PM Pressure channel 1 zeroed. 04:16 PM 5Fr Pigtail catheter inserted over the wire DN twilson 04:16 PM Recorded Pressure: LV, HR=90, Condition=Condition 1 (Left Ventricle) LV 131/-2/11 04:16 PM Catheter selectively placed in left ventricle twilson 04:16 PM Wire removed, intact. twilson 04:16 PM Bolus angiogram of left Ventricle complete: 10 ml/sec for a total of 30 mls twilson 04:16 PM Recorded Pressure: LV, Ao, HR=89, Condition=Condition 1 (Left Ventricle) LV 132/9/11, (Aorta) Ao 134/76/103 04:17 PM Time: 16:02LOC: 4 = Oriented but drowsy twilson 04:17 PM Time: 16:02 Patient comfortable and pain free: Yes tw:17 PM ACT running. tw: PM Wire reinserted. twilson : PM Catheter removed twilson :18 PM 6Fr EBU 3.5 Medtronic guide catheter was used to cannulate the PCI vessel successfully. reused? No twilson :18 PM Wire removed intact. twilson :18 PM Recorded Pressure: Ao, HR=89, Condition=Condition 1 (Aorta) Ao 131/76/100 04:19 PM At 16:19 the ACT was 151 seconds. twilson : PM HR=86 bpm, VCEE=515/90 mmhg, SpO2=93.0 %, Resp=19 B/min 04:19 PM Time: 16:19 Heparin 4000 units Intravenous Given by Jaspal Campbell RN twilson 04:20 PM Recorded Pressure: Ao, HR=86, Condition=Condition 1 (Aorta) Ao 129/77/100 04:20 PM .014 [place] 190cm guide wire across target lesion- successful. reused? No tw: PM Time: 16:21 Versed 1 mg Intravenous Given by Jaspal Campbell RN twilson 04:21 PM Time: 16:21 Fentanyl 25 mcg Intravenous Given by Jaspal Campbell RN twilson 04:21 PM 2.0 mm x 15 mm Emerge Monorail balloon across target lesion- successful. reused? No twilson 04:21 PM Recorded Pressure: Ao, HR=86, Condition=Condition 1 (Aorta) Ao 123/81/101 04:22 PM Recorded Pressure: Ao, HR=86, Condition=Condition 1 (Aorta) Ao 118/79/97 04:22 PM Balloon inflated @ 8 carlos alberto for 6 seconds twilson 04:23 PM Balloon inflated @ 12 carlos alberto for 16 seconds twilson : PM Balloon inflated @ 14 carlos alberto for 17 seconds twilson 04:24 PM Balloon inflated @ 10 carlos alberto for 14 seconds twilson 04:24 PM HR=80 bpm, DDMY=371/88 mmhg, SpO2=92.0 %, Resp=19 B/min 04:25 PM Balloon inflated @ 6 carlos alberto for 14 seconds twilson : PM Time: 16:25 Nitroglycerin 200 mcg Intracoronary Given by Moody Shelby MD ilson 04: PM Recorded Pressure: Ao, HR=96, Condition=Condition 1 (Aorta) Ao 106/73/88 04:28 PM Balloon catheter removed intact. tw: PM 2.25mm x 28mm Synergy drug-eluting stent across target lesion- successful Lot #[id number] twilson 04: PM Stent deployed @ 14 carlos alberto for 31 seconds twilson 04: PM Time: 16:28 Nitroglycerin 200 mcg Intracoronary Given by Moody Shelby MD tw 04: PM Stent delivery system removed intact. twilson 04: PM Guide wire removed intact. twilson 04: PM HR=94 bpm, EBRF=572/73 mmhg, SpO2=92.0 %, Resp=21 B/min 04:30 PM Time: 16:30 Brilinta 180 mg Orally Given by Jaspal Campbell RN twilson 04:30 PM Recorded Pressure: Ao, HR=96, Condition=Condition 1 (Aorta) Ao 109/69/84 04:30 PM Wire reinserted. twilson 04:30 PM Guide catheter removed intact. tw 04:30 PM Bolus angiogram of right Femoral complete: 4 ml/sec for a total of 7 mls tw 04:32 PM Time: 16:32 Aggrastat Bolus: 46 ml Intravenous Given by Jaspal Campbell RN Leach pump :32 PM Time: 16:17 Patient comfortable and pain free: Yes :32 PM Time: 16:17LOC: 4 = Oriented but drowsy tw:32 PM Time: 16:32 Aggrastat 12.5mg/250ml 16.5 ml Intravenous Given by Jaspal Campbell RN Leach pump twilson 04:34 PM Procedure completed at 16:34 02/22/2018 tw 04:34 PM Did you address MARCO flow and Dominance? Yes tw 04:34 PM HR=91 bpm, VDPL=301/88 mmhg, SpO2=92.0 %, Resp=15 B/min 04:34 PM Sign out completed: Radiation Dose 488.16 mGy, 33.1219 Gy/cm2 Fluoro Time: 4.4 Isovue 370 - 200ml contrast 116 ml given by Moody Shelby MD, [facility]. Complications: NoneCardiac Rehab Consult needed: YesConfirmed administered medications: Yes twilson 04:34 PM Isovue 370 - 200ml,1 Bottle(s) used. twilson 04:35 PM At 16:35 the ACT was 219 seconds. twilson 04:36 PM No family present at this time. twilson 04:36 PM Sheath left in place to be pulled on floor/holding areaV+Pad twilson 04:37 PM Estimated Blood Loss: minimal twilson 04:37 PM Post Blood Pressure 133/88 twilson 04:37 PM 16:37 Post Pulses Bilateral DP & PT 1+ twilson 04:37 PM Information taught Cardiac Cath and PCI twilson 04:37 PM Education needs Procedure, Plan of Care, and Responsibilities of Patient in Care twilson 04:37 PM Learning barriers :None twilson 04:37 PM Education Methods Verbal twilson 04:37 PM Education evaluation Able to repeat information twilson 04:37 PM Site status No bleeding/hematoma - Rt Groin as reported by Sharmila Ortiz RT (R) at 16:37 twilson 04:37 PM Opsite applied twilson 04:38 PM Report given to Esther LOCKWOOD Pt taken to 2N Room #3. 16:38 twilson 04:38 PM Plavix, Effient or Brilinta given Yes twilson 04:38 PM Delay to floor No twilson 04:39 PM Patient out of room: 16:39 twilson Complications Complication None Hemodynamics Pressures Site Systolic/A Wave Diastolic/V Wave Mean AO 99 67 83 LV 131 -2 11 LV 132 9 11 AO 134 76 103 AO 131 76 100 AO 129 77 100 AO 123 81 101 AO 118 79 97 AO 106 73 88 AO 109 69 84 Post Procedure Information Blood Pressure: 133/88 mmHg Post procedural instructions were given Site Checks Time Location Status Staff Sheath In? Note 04:37 PM Rt Groin No bleeding/hematoma Sharmila Ortiz RT (R) Pulses Time Site Pre-Procedure Post-Procedure Note 02/22/2018 4:01:00 PM Bilateral DP & PT 1+ 02/22/2018 4:01:00 PM Bilateral radial 2+ 4:37:00 PM Bilateral DP & PT 1+ Updated by RT Sofía (R) on 02/22/2018 4:43:18 PM electronically signed on 02/22/2018 4:44:31 PM with status of Final
[2018-02-22] MEDS: *HR* Ticagrelor 90 MG TABLET PO SCH (20:08)
[2018-02-22] MEDS: Insulin DETEMIR 100 UNIT/ML X5UNITS SQ SCH (20:09)
[2018-02-22] MEDS ORDERED: *HR* Atropine Sulfate 1 MG/10 ML SYRINGE ONE (20:34)
[2018-02-23 05:00] LABS: Basophils # 0.1 K/mcL (0.0-0.2); Basophils % 0.3 %; Eosinophils # 0.4 K/mcL (0.0-0.6); Eosinophils % 2.7 %; Hematocrit 45.2 % (37.5-50.1); Hemoglobin 15.5 g/dL (12.9-16.9); Immature Granulocytes % 0.8 % (0-4); Lymphocytes # 5.6 K/mcL (0.6-4.6); Lymphocytes % 35.8 %; Mean Corpuscular HGB Conc 34.3 g/dL (31.6-35.5); Mean Corpuscular Hemoglobin 30.6 pg (28.0-33.3); Mean Corpuscular Volume 89.2 fL (83.0-100.0); Mean Platelet Volume 10.2 fL (9.4-12.4); Monocytes # 1.9 K/mcL (0.0-1.3); Neutrophils # 7.6 K/mcL (1.6-8.9); Platelet Count 335 K/mcL (140-400); Red Blood Count 5.07 M/mcL (4.19-5.50); Red Cell Distribution Width 14.7 % (11.5-14.5); Segmented Neutrophils % 48.4 %
[2018-02-23 05:17] LABS: BUN/Creatinine Ratio 18 (6-26); Blood Urea Nitrogen 18 mg/dL (6-20); Calcium 9.2 mg/dL (8.6-10.3); Carbon Dioxide 22 mEq/L (23-29); Chloride 102 mEq/L (98-107); Glucose 374 mg/dL (70-105); Osmolality,Calculated 291 (280-300); Potassium 4.1 mEq/L (3.5-5.1); Sodium 132 mEq/L (136-145); eGFR For Non-African Americans > 60 (> 60)
[2018-02-23] MEDS: *HR* Ticagrelor 90 MG TABLET PO SCH ×2 (08:39→22:04)
[2018-02-23] MEDS: BuPROPion XL (24 HR) 150 MG TABLET PO SCH (08:40)
[2018-02-23] MEDS: Isosorbide MONOnitrate (24 HR) 60 MG TAB.ER.24H PO SCH (08:40)
[2018-02-23] MEDS: Fenofibrate 54 MG TABLET PO SCH (08:40)
[2018-02-23] MEDS: Aspirin Enteric Coated 81 MG Tablet PO SCH (08:40)
[2018-02-23] MEDS: amLODIPine 5 MG TABLET PO SCH (08:41)
[2018-02-23] MEDS: Insulin DETEMIR 100 UNIT/ML X5UNITS SQ SCH ×2 (08:53→22:12)
[2018-02-23] MEDS ORDERED: Aspirin 81 MG TAB.CHEW PO SCH ×2 (09:00)
[2018-02-23] MEDS: Insulin LISPRO 300 UNITS/3 ML VIAL SQ SCH ×4 (09:22→22:06)
--- NOTE | 2018-02-23 09:38 | Cardiology Progress Note ---
Date of Encounter: 02/23/18 Time of Encounter: 09:36 Assessment and Plan (1) NSTEMI (non-ST elevated myocardial infarction) Current Visit: Yes Status: Acute Troponins 0.62, 17.56, 70.59. Known CAD hx with positive stress test inferolateral segment 11/2017. Declined LHC at that time. LHC yesterday OM 100% instent thrombus sp PCI LALO x 1 with good result. EF50%, otherwise mild disease. Was switched to 180mg Brilinta load and BID. Was noted we may have to do plavix given history of questionable compliance. I discussed at length with pt regarding importance of DAPT (ASA and Brilinta). He states he will be compliant with the BID Brilinta. Coupon card given. Continue Statin, BB, CCB, nitrates. Left femoral access site healing well. No bleeding, hematoma or ecchymosis noted. TTE pending. Cardiology signing off. Reconsult PRN. Will coordinate outpt follow-up in 1 week. Recommend pt be kept minimum of another 24 hours given peak troponin 70.59. (2) CAD (coronary artery disease) Current Visit: Yes Status: Acute Known CAD with PCI as above. ASA, Brilinta, Statin, BB, nitrates. Qualifiers: Coronary Disease-Associated Artery/Lesion type: [place] artery [place] vs. transplanted heart: [place] heart Associated angina: with unstable angina Qualified Code(s): I25.110 - Atherosclerotic heart disease of [place] coronary artery with unstable angina pectoris Discussion w patient/family: The assessment and plan as outlined above was discussed with the patient and/or family members who expressed understanding and agreement. All questions were answered. Thank you for involving us in the care of your patient. Please call with any questions. I will discuss all the above with Dr. Lord and make changes as necessary. Subjective Principal diagnosis: NSTEMI Interval history: Troponins 0.62, 17.56, 70.59. LHC yesterday--OM 100% instent thrombus sp PCI LALO x 1 with good result. EF50% , otherwise mild disease. Was switched to 180mg ticagrelor load and BID. Noted that we may have to do plavix given history of questionable compliance. Pt denies chest pain or dyspnea this AM. Denies acute cardiac complaints. Objective Vital Signs Temp Pulse Pulse Resp BP Pulse Ox 02/23/18 04:22 98.2 F 79 20 95/76 95 02/22/18 23:59 98.3 F 86 18 111/80 95 02/22/18 21:05 85 133/83 02/22/18 21:00 88 141/88 02/22/18 20:55 93 135/90 02/22/18 20:50 90 140/89 02/22/18 20:45 91 148/104 02/22/18 20:40 83 149/84 02/22/18 20:38 88 88 147/88 02/22/18 18:31 97.5 F L 80 21 137/78 97 02/22/18 18:30 72 16 138/73 97 02/22/18 18:00 74 16 139/74 97 02/22/18 17:45 76 75 17 134/76 94 02/22/18 17:30 73 75 16 130/83 94 02/22/18 17:15 77 75 16 130/83 95 02/22/18 17:09 98.2 F 76 18 130/83 96 02/22/18 17:03 97.5 F L 88 16 137/80 95 02/22/18 17:00 97.5 F L 88 88 16 137/80 95 02/22/18 11:21 93 18 159/88 93 02/22/18 10:29 98.0 F 99 18 156/85 95 02/22/18 09:56 20 159/88 Intake and Output 02/22/18 02/23/18 02/23/18 23:59 07:59 15:59 Output Total 500 / 500 Balance -500 / -500 Output: Urine 500 / 500 Other: Stool Size Large Stool Consistency loose liquid Stool Characteristics Normal for Patient Stool Color Brown # Bowel Movements 1 Weight 91.8 kg Blood Glucose* 252 377 Patient Weight 02/23/18 23:59 Weight 91.8 kg General: Conversant, No Apparent Distress HEENT: Atraumatic, Normocephaly, Mucus Membranes Moist Neck: No JVD, Normal carotid pulses Cardiac: Reg Rate and Rhythm, Normal S1 and S2, No Murmur Lungs: Normal Breath Sounds, No Wheeze, Rales, Rhonchi Neuro: Alert and responsive, No focal deficits noted Abdomen: Soft, Non-Tender Skin: Other (left femoral access site healing well. No bleeding, hematoma or ecchymosis noted.) Musculoskeletal: No Chest Wall Tenderness Extremities: No Clubbing, No Cyanosis, No Edema, Normal Pulses Results 02/23/18 04:34 02/23/18 04:34 Lab Results 02/22/18 02/22/18 02/23/18 11:52 23:11 04:34 WBC 15.6 H Hgb 15.5 Hct 45.2 Plt Count 335 Sodium Potassium Chloride Carbon Dioxide BUN Creatinine Glucose Calcium Troponin I 17.56 H* 70.59 H* 02/23/18 04:34 WBC Hgb Hct Plt Count Sodium 132 L Potassium 4.1 Chloride 102 Carbon Dioxide 22 L BUN 18 Creatinine 0.98 Glucose 374 H Calcium 9.2 Troponin I Short CBC 02/23/18 Range/Units 04:34 WBC 15.6 H (4.3-11.1) K/mcL Hgb 15.5 (12.9-16.9) g/dL Hct 45.2 (37.5-50.1) % Plt Count 335 (140-400) K/mcL Neutrophils # 7.6 (1.6-8.9) K/mcL BMP 02/23/18 Range/Units 04:34 Sodium 132 L (136-145) mEq/L Potassium 4.1 (3.5-5.1) mEq/L Chloride 102 (98-107) mEq/L Carbon Dioxide 22 L (23-29) mEq/L BUN 18 (6-20) mg/dL Creatinine 0.98 (0.70-1.30) mg/dL Glucose 374 H (70-105) mg/dL Calcium 9.2 (8.6-10.3) mg/dL Cardiac Enzymes 02/22/18 02/22/18 Range/Units 23:11 11:52 Troponin I 70.59 H* 17.56 H* (< 0.04) ng/mL Active Medications Amlodipine Besylate (Norvasc) 10 mg PO DAILY [facility] Stop: 08/25/18 09:01 Last Admin: 02/23/18 08:41 Dose: 10 mg Aspirin (Aspirin Ec) 81 mg PO DAILY JONNA Stop: 08/25/18 09:01 Last Admin: 02/23/18 08:40 Dose: 81 mg Bupropion HCl (Wellbutrin Xl) 300 mg PO DAILY JONNA Stop: 08/25/18 09:01 Last Admin: 02/23/18 08:40 Dose: 300 mg Cilostazol (Pletal) 100 mg PO BID [facility] Stop: 08/24/18 21:01 Last Admin: 02/23/18 08:39 Dose: 100 mg Dextrose/Water (Dextrose 50% (Syg)) 25 ml IVP AD PRN PRN Reason: Hypoglycemia Stop: 08/24/18 11:20 Donepezil HCl (Aricept) 10 mg PO DAILY [facility] Stop: 08/25/18 09:01 Last Admin: 02/23/18 08:40 Dose: 10 mg Fenofibrate (Tricor) 162 mg PO DAILY [facility] Stop: 08/25/18 09:01 Last Admin: 02/23/18 08:40 Dose: 162 mg Glucagon (Glucagen) 1 mg IM ONCE PRN PRN Reason: Hypoglycemia Stop: 08/24/18 11:20 Glucose (Gluctose) 15 gm PO ONCE PRN PRN Reason: Hypoglycemia Stop: 08/24/18 11:20 Glucose (Gluctose) 30 gm PO ONCE PRN PRN Reason: Hypoglycemia Stop: 08/24/18 11:20 Dextrose (Dextrose 5%) 1,000 mls @ 100 mls/hr IVC .Q10H PRN PRN Reason: HYPOGLYCEMIA Stop: 08/24/18 11:20 Insulin Detemir (Levemir) 20 unit SQ BID [facility] Stop: 08/24/18 21:01 Last Admin: 02/23/18 08:53 Dose: 20 unit Insulin Human Lispro (Humalog) 0 units SQ HS [facility] PRN Reason: Protocol Stop: 08/24/18 21:01 Last Admin: 02/22/18 20:09 Dose: 5 units Insulin Human Lispro (Humalog) 0 units SQ TIDAC [facility] PRN Reason: Protocol Stop: 08/24/18 11:31 Last Admin: 02/23/18 09:22 Dose: 16 unit Isosorbide Mononitrate (Imdur) 60 mg PO DAILY [facility] Stop: 08/25/18 09:01 Last Admin: 02/23/18 08:40 Dose: 60 mg Metoprolol Tartrate (Lopressor) 50 mg PO BID [facility] Stop: 08/24/18 21:01 Last Admin: 02/23/18 08:39 Dose: 50 mg Naloxone HCl (Narcan) 0.4 mg IVP Q2MIN PRN PRN Reason: SEE COMMENTS Stop: 08/24/18 11:26 Nicotine (Nicoderm) 21 mg TD Q24H JONNA PRN Reason: Protocol Stop: 08/24/18 11:31 Last Admin: 02/22/18 11:48 Dose: 21 mg Nitroglycerin (Nitroglycerin) 0.4 mg SL Q5MIN PRN PRN Reason: Chest Pain Stop: 08/24/18 06:15 Last Admin: 02/22/18 07:47 Dose: 0.4 mg Ondansetron HCl (Zofran) 4 mg IVP Q6H PRN; Protocol PRN Reason: Nausea And Vomiting Stop: 08/24/18 16:35 Rosuvastatin Calcium (Crestor) 40 mg PO HS JONNA Stop: 08/24/18 21:01 Last Admin: 02/22/18 20:08 Dose: 40 mg Sertraline HCl (Zoloft) 50 mg PO DAILY [facility] Stop: 08/25/18 09:01 Last Admin: 02/23/18 08:40 Dose: 50 mg Ticagrelor (Brilinta) 90 mg PO BID [facility] Stop: 08/24/18 21:01 Last Admin: 02/23/18 08:39 Dose: 90 mg - Imaging and Cardiology Echo: pending Cardiac cath: report reviewed - EKG Interpretation EKG results cardiology: other (12 hr tele AVG HR 78, SR, no significant pauses or arrhythmias noted.) Consult Discharge Plan - Plan Additional Instructions: RISK FACTORS: STOP SMOKING: If you smoke, STOP. Smoking or tobacco use significantly increases your risk of heart disease because nicotine causes the arteries to narrow or constrict. It also causes fats to stick to the artery. Your chances of having a heart attack are greatly increased if you continue to smoke. For more information, call the education line for smoking cessation 4-583-RMFNMPC EAT A LOW FAT/CHOLESTEROL/SODIUM DIET: This diet may help reduce your chances of having a heart attack. LIFTING: Avoid lifting anything more than 10 pounds for 5-7 days Prior to straining, laughing, sneezing and/or coughing, apply manual pressure directly over insertion site. ACTIVITY: You may walk or climb stairs as tolerated You can resume sexual activity as tolerated In general, you are encouraged to engage in a minimum of 30 minutes or more of moderate intensity physical activity, such as brisk walking, daily or at least 3 -4 times weekly BATHING Do not submerge the site into water (bath tub, hot tub, swimming pool) for 1 week. This can be a source for infection into the blood stream. You may shower after 24 hours SITE CARE: After 24 hours, you may remove the dressing and leave the site open to air. Keep the site clean and dry. Clean gently and pat dry. You can expect bruising and tenderness that gradually resolve within a week or two. Return to work as instructed per your physician Resume driving as instructed per physician Keep all scheduled follow up appointments Resume medications as instructed IMPORTANT: If prescribed a Platelet Aggregation Inhibitor such as, Plavix, Brilinta or Effient: Duration of therapy is minimum one year These medications are often used in combination with Aspirin in prevention of future heart attacks Never discontinue unless consult with your Crap Game Box Person STROKE (CVA) Risk factors for a stroke are: Age, cigarette smoking, diabetes, excessive alcohol consumption, family history, high blood pressure, overweight, physical inactivity, prior stroke, heart attack, diagnosis of carotid artery stenosis or other artery disease. Warning signs: Sudden numbness or weakness of the face, arm or leg; especially on one side of the body, sudden confusion, trouble speaking or understanding, sudden trouble seeing in one or both eyes, sudden trouble walking, dizziness, loss of balance or coordination, sudden severe headache with no cause. Call 911 or go to the Emergency Room. CONGESTIVE HEART FAILURE: If you have been diagnosed with Congestive Heart Failure (CHF) and your symptoms return, make an appointment with your physician Weigh yourself daily. Notify your physician if you have a weight gain of two or more pounds in one day or five or more pounds in one week. If you experience any difficulty breathing, please call 911 BLEEDING: Although the risk of bleeding is minimal, it can happen. If you have any bleeding from the site, apply firm pressure above the puncture site for 10-15 minutes. If the bleeding does not stop, continue manual pressure and call 911 Contact your physician if: You develop a fever greater than 101 degrees Fahrenheit Your site becomes reddened or has any drainage You have an increase in pain or burning at the site or if a large knot forms at the site. If you experience chest pain, shortness of breath, dizziness, or extreme tiredness, stop the activity and rest. Please notify your physicians office if you experience any of these symptoms and they are not relieved by rest please call 911! Referrals: Becky Russell CNP [Partnered Physician] - (Office will call patient at home with follow up appointment) Ahsan Joe MD [Primary Care Provider] - 03/03/18 10:30 am
[2018-02-23] MEDS: Nicotine 21 MG PATCH.TD24 TD SCH (11:41)
--- NOTE | 2018-02-23 17:45 | Electrocardiograph Report ---
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
[2018-02-23] MEDS: Vancomycin Oral Soln 125 MG/2.5 ML UDC PO SCH ×3 (18:47→22:05)
--- NOTE | 2018-02-23 19:27 | Internal Med Progress Note ---
Hospitalist Progress Note - Encounter Date of Encounter: 02/23/18 Time of Encounter: 11:00 - Subjective Interval History: Patient still with increased episodes of diarrhea per nursing staff - Exam Vitals: Temp Pulse Resp BP Pulse Ox 98.1 F 79 16 93/59 94 02/23/18 16:07 02/23/18 16:07 02/23/18 16:07 02/23/18 16:07 02/23/18 16:07 Exam: Gen.: Nonacute distress, alert and oriented 3 ENT: Mucosal membranes moist Respiratory: Lungs are clear to auscultation bilaterally without any wheezing rhonchi or rales Cardiovascular: Normal S1 and S2 regular rate rhythm no murmurs rubs or gallops Abdomen: Soft, nontender and nondistended with positive bowel sounds Extremities: No lower extremity edema Skin: Normal color - Assessment and Plan (1) Tobacco abuse Current Visit: No Status: Chronic Assessment and Plan: Continue nicotine patch. (2) Essential hypertension Current Visit: No Status: Chronic Assessment and Plan: Continue home medications (3) Diabetes mellitus Current Visit: No Status: Chronic Assessment and Plan: Poorly controlled. Check A1c Continue long-acting insulin (4) NSTEMI (non-ST elevated myocardial infarction) Current Visit: Yes Status: Acute Assessment and Plan: Patient has been diagnosed with non-ST elevation myocardial infarction. Continue his aspirin, statin, beta blockers. Cardiology consulted with recommendations for left heart catheterization which showed OM 100% instent thrombus sp PCI LALO x 1 with good result. Recommendations to switch to 180mg ticagrelor load and BID but may have to do plavix given history of questionable compliance. - Time Spent with Patient Total time spent is greater than 50% in coordination of care (as documented) at patient's floor/unit and/or counseling patient: Internal Medicine: Result - Labs CBC & Chem 7: 02/23/18 04:34 02/23/18 04:34 Labs: Short CBC 02/23/18 Range/Units 04:34 WBC 15.6 H (4.3-11.1) K/mcL Hgb 15.5 (12.9-16.9) g/dL Hct 45.2 (37.5-50.1) % Plt Count 335 (140-400) K/mcL Neutrophils # 7.6 (1.6-8.9) K/mcL BMP 02/23/18 04:34 Sodium 132 L Potassium 4.1 Chloride 102 Carbon Dioxide 22 L BUN 18 Creatinine 0.98 Glucose 374 H Calcium 9.2 Cardiac Enzymes 02/22/18 Range/Units 23:11 Troponin I 70.59 H* (< 0.04) ng/mL - ABG Interpretation ABG results: PT/INR, D-dimer PT 10.5 Seconds (9.4-12.1) 02/22/18 08:15 D-Dimer 509 ng/mLFEU (0-500) H 02/22/18 06:19 - Impressions Impressions Echocardiogram 02/23/18 10:13 Impressions: LVEF 55%. Normal LV chamber size and function. Mild concentric left ventricular hypertrophy. Mild left ventricular diastolic dysfunction. Mildly increased RV wall thickness with normal function. Unable to estimate RVSP due to lack of TR jet. No significant valvular dysfunction. Left Ventricular Wall Motion: Rest Echo Findings All wall segments showed normal motion. Findings: Study Quality * Technically acceptable images. ECG Findings * Normal sinus rhythm. Left Ventricle * LVEF 55%. * Normal LV chamber size and function. * Mild concentric left ventricular hypertrophy. * Mild left ventricular diastolic dysfunction. Right Ventricle * Mildly increased RV wall thickness with normal function. Left Atrium * Mildly dilated left atrium. Right Atrium * Normal right atrial size. Interatrial Septum * Interatrial septum not well evaluated. Aortic Valve * Trileaflet aortic valve. * Mildly sclerotic aortic valve leaflets. * No aortic regurgitation. * No aortic stenosis. Mitral Valve * Normal mitral valve structure and function. * No mitral regurgitation. * No mitral stenosis. Tricuspid Valve * Normal tricuspid valve structure and function. * No tricuspid regurgitation. * Unable to estimate RVSP due to lack of TR jet. Pulmonic Valve * Normal pulmonic valve structure and function. * No pulmonic regurgitation. Aorta * Normally sized aortic root. Pericardium * The pericardium appears normal. IVC * The IVC is not well evaluated. Pulmonary Artery * Normal visualized portions of the main pulmonary artery. Consult Discharge Plan - Plan Additional Instructions: RISK FACTORS: STOP SMOKING: If you smoke, STOP. Smoking or tobacco use significantly increases your risk of heart disease because nicotine causes the arteries to narrow or constrict. It also causes fats to stick to the artery. Your chances of having a heart attack are greatly increased if you continue to smoke. For more information, call the education line for smoking cessation 4-362-FNQJYLM EAT A LOW FAT/CHOLESTEROL/SODIUM DIET: This diet may help reduce your chances of having a heart attack. LIFTING: Avoid lifting anything more than 10 pounds for 5-7 days Prior to straining, laughing, sneezing and/or coughing, apply manual pressure directly over insertion site. ACTIVITY: You may walk or climb stairs as tolerated You can resume sexual activity as tolerated In general, you are encouraged to engage in a minimum of 30 minutes or more of moderate intensity physical activity, such as brisk walking, daily or at least 3 -4 times weekly BATHING Do not submerge the site into water (bath tub, hot tub, swimming pool) for 1 week. This can be a source for infection into the blood stream. You may shower after 24 hours SITE CARE: After 24 hours, you may remove the dressing and leave the site open to air. Keep the site clean and dry. Clean gently and pat dry. You can expect bruising and tenderness that gradually resolve within a week or two. Return to work as instructed per your physician Resume driving as instructed per physician Keep all scheduled follow up appointments Resume medications as instructed IMPORTANT: If prescribed a Platelet Aggregation Inhibitor such as, Plavix, Brilinta or Effient: Duration of therapy is minimum one year These medications are often used in combination with Aspirin in prevention of future heart attacks Never discontinue unless consult with your [employer] Seater STROKE (CVA) Risk factors for a stroke are: Age, cigarette smoking, diabetes, excessive alcohol consumption, family history, high blood pressure, overweight, physical inactivity, prior stroke, heart attack, diagnosis of carotid artery stenosis or other artery disease. Warning signs: Sudden numbness or weakness of the face, arm or leg; especially on one side of the body, sudden confusion, trouble speaking or understanding, sudden trouble seeing in one or both eyes, sudden trouble walking, dizziness, loss of balance or coordination, sudden severe headache with no cause. Call 911 or go to the Emergency Room. CONGESTIVE HEART FAILURE: If you have been diagnosed with Congestive Heart Failure (CHF) and your symptoms return, make an appointment with your physician Weigh yourself daily. Notify your physician if you have a weight gain of two or more pounds in one day or five or more pounds in one week. If you experience any difficulty breathing, please call 911 BLEEDING: Although the risk of bleeding is minimal, it can happen. If you have any bleeding from the site, apply firm pressure above the puncture site for 10-15 minutes. If the bleeding does not stop, continue manual pressure and call 911 Contact your physician if: You develop a fever greater than 101 degrees Fahrenheit Your site becomes reddened or has any drainage You have an increase in pain or burning at the site or if a large knot forms at the site. If you experience chest pain, shortness of breath, dizziness, or extreme tiredness, stop the activity and rest. Please notify your physicians office if you experience any of these symptoms and they are not relieved by rest please call 911! Referrals: Becky Russell CNP [Partnered Physician] - (Office will call patient at home with follow up appointment) Ahsan Joe MD [Primary Care Provider] - 03/03/18 10:30 am (3) Diabetes mellitus Qualifiers: Diabetes mellitus type: type 2 Diabetes mellitus chancellor insulin use: with chancellor use Diabetes mellitus complication status: with hyperglycemia Qualified Code(s): E11.65 - Type 2 diabetes mellitus with hyperglycemia; Z79.4 - last pattern grader (current) use of insulin
[2018-02-24] MEDS: Vancomycin Oral Soln 125 MG/2.5 ML UDC PO SCH ×4 (10:06→21:42)
[2018-02-24] MEDS: amLODIPine 5 MG TABLET PO SCH (10:08)
[2018-02-24] MEDS: BuPROPion XL (24 HR) 150 MG TABLET PO SCH (10:08)
[2018-02-24] MEDS: Insulin DETEMIR 100 UNIT/ML X5UNITS SQ SCH ×2 (10:08→21:42)
[2018-02-24] MEDS: Fenofibrate 54 MG TABLET PO SCH (10:08)
[2018-02-24] MEDS: *HR* Ticagrelor 90 MG TABLET PO SCH ×2 (10:08→21:42)
[2018-02-24] MEDS: Aspirin Enteric Coated 81 MG Tablet PO SCH (10:09)
[2018-02-24] MEDS: Nicotine 21 MG PATCH.TD24 TD SCH (10:09)
[2018-02-24] MEDS: Insulin LISPRO 300 UNITS/3 ML VIAL SQ SCH ×6 (10:09→21:46)
[2018-02-24] MEDS: Isosorbide MONOnitrate (24 HR) 60 MG TAB.ER.24H PO SCH (10:10)
[2018-02-24 10:24] LABS: Basophils # 0.1 K/mcL (0.0-0.2); Basophils % 0.5 %; Eosinophils # 0.7 K/mcL (0.0-0.6); Eosinophils % 5.2 %; Hematocrit 45.8 % (37.5-50.1); Hemoglobin 15.3 g/dL (12.9-16.9); Immature Granulocytes % 1.3 % (0-4); Lymphocytes # 3.9 K/mcL (0.6-4.6); Lymphocytes % 30.4 %; Mean Corpuscular HGB Conc 33.4 g/dL (31.6-35.5); Mean Corpuscular Hemoglobin 30.8 pg (28.0-33.3); Mean Corpuscular Volume 92.3 fL (83.0-100.0); Mean Platelet Volume 10.8 fL (9.4-12.4); Monocytes # 1.3 K/mcL (0.0-1.3); Monocytes % 10.5 %; Neutrophils # 6.7 K/mcL (1.6-8.9); Platelet Count 339 K/mcL (140-400); Red Blood Count 4.96 M/mcL (4.19-5.50); Red Cell Distribution Width 14.6 % (11.5-14.5); Segmented Neutrophils % 52.1 %
[2018-02-24 10:28] LABS: Estimated Average Glucose 255 mg/dl; Hemoglobin A1C 10.5 %
[2018-02-24 10:46] LABS: Glucose 534 mg/dL (70-105)
--- NOTE | 2018-02-24 11:52 | Electrocardiograph Report ---
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
--- NOTE | 2018-02-24 15:12 | Internal Med Progress Note ---
Hospitalist Progress Note - Encounter Date of Encounter: 02/24/18 Time of Encounter: 12:00 - Subjective Interval History: Patient without any improvement with diarrhea secondary to C. difficile on day 2 of oral vancomycin Patient also with uncontrolled blood glucose with A1c of 10.5 Awaiting placement to ECF - Exam Vitals: Temp Pulse Resp BP Pulse Ox 97.5 F L 102 20 99/62 99 02/24/18 10:53 02/24/18 10:53 02/24/18 10:53 02/24/18 10:53 02/24/18 10:53 Exam: Gen.: Nonacute distress, alert and oriented 3 ENT: Mucosal membranes moist Respiratory: Lungs are clear to auscultation bilaterally without any wheezing rhonchi or rales Cardiovascular: Normal S1 and S2 regular rate rhythm no murmurs rubs or gallops Abdomen: Soft, nontender and nondistended with positive bowel sounds Extremities: No lower extremity edema Skin: Normal color - Assessment and Plan (1) Clostridium difficile diarrhea Current Visit: No Status: Acute Assessment and Plan: Patient with no improvement in diarrhea on day 2 of oral vancomycin with slight leukocytosis Will continue oral vancomycin. (2) Diabetes mellitus Current Visit: No Status: Chronic Assessment and Plan: Poorly controlled with A1c of 10.5 Basal insulin increased this morning Continue to monitor (3) NSTEMI (non-ST elevated myocardial infarction) Current Visit: Yes Status: Acute Assessment and Plan: Patient has been diagnosed with non-ST elevation myocardial infarction. Cardiology consulted with recommendations for left heart catheterization which showed OM 100% instent thrombus sp PCI LALO x 1 with good result. Recommendations to switch to 180mg ticagrelor load and BID but may have to do plavix given history of questionable compliance. Continue aspirin, statin, beta blockers. (4) Essential hypertension Current Visit: No Status: Chronic Assessment and Plan: Continue home medications (5) Tobacco abuse Current Visit: No Status: Chronic Assessment and Plan: Continue nicotine patch. (6) DVT prophylaxis Current Visit: Yes Status: Acute Assessment and Plan: Lovenox subcutaneous - Time Spent with Patient Total time spent is greater than 50% in coordination of care (as documented) at patient's floor/unit and/or counseling patient: Internal Medicine: Result - Labs CBC & Chem 7: 02/24/18 10:02 02/24/18 10:02 Labs: Short CBC 02/24/18 Range/Units 10:02 WBC 12.8 H (4.3-11.1) K/mcL Hgb 15.3 (12.9-16.9) g/dL Hct 45.8 (37.5-50.1) % Plt Count 339 (140-400) K/mcL Neutrophils # 6.7 (1.6-8.9) K/mcL BMP 02/24/18 10:02 Glucose 534 H* - ABG Interpretation ABG results: PT/INR, D-dimer PT 10.5 Seconds (9.4-12.1) 02/22/18 08:15 D-Dimer 509 ng/mLFEU (0-500) H 02/22/18 06:19 Consult Discharge Plan - Plan Additional Instructions: RISK FACTORS: STOP SMOKING: If you smoke, STOP. Smoking or tobacco use significantly increases your risk of heart disease because nicotine causes the arteries to narrow or constrict. It also causes fats to stick to the artery. Your chances of having a heart attack are greatly increased if you continue to smoke. For more information, call the education line for smoking cessation 5-764-OJSVKED EAT A LOW FAT/CHOLESTEROL/SODIUM DIET: This diet may help reduce your chances of having a heart attack. LIFTING: Avoid lifting anything more than 10 pounds for 5-7 days Prior to straining, laughing, sneezing and/or coughing, apply manual pressure directly over insertion site. ACTIVITY: You may walk or climb stairs as tolerated You can resume sexual activity as tolerated In general, you are encouraged to engage in a minimum of 30 minutes or more of moderate intensity physical activity, such as brisk walking, daily or at least 3 -4 times weekly BATHING Do not submerge the site into water (bath tub, hot tub, swimming pool) for 1 week. This can be a source for infection into the blood stream. You may shower after 24 hours SITE CARE: After 24 hours, you may remove the dressing and leave the site open to air. Keep the site clean and dry. Clean gently and pat dry. You can expect bruising and tenderness that gradually resolve within a week or two. Return to work as instructed per your physician Resume driving as instructed per physician Keep all scheduled follow up appointments Resume medications as instructed IMPORTANT: If prescribed a Platelet Aggregation Inhibitor such as, Plavix, Brilinta or Effient: Duration of therapy is minimum one year These medications are often used in combination with Aspirin in prevention of future heart attacks Never discontinue unless consult with your Promotions Coordinator STROKE (CVA) Risk factors for a stroke are: Age, cigarette smoking, diabetes, excessive alcohol consumption, family history, high blood pressure, overweight, physical inactivity, prior stroke, heart attack, diagnosis of carotid artery stenosis or other artery disease. Warning signs: Sudden numbness or weakness of the face, arm or leg; especially on one side of the body, sudden confusion, trouble speaking or understanding, sudden trouble seeing in one or both eyes, sudden trouble walking, dizziness, loss of balance or coordination, sudden severe headache with no cause. Call 911 or go to the Emergency Room. CONGESTIVE HEART FAILURE: If you have been diagnosed with Congestive Heart Failure (CHF) and your symptoms return, make an appointment with your physician Weigh yourself daily. Notify your physician if you have a weight gain of two or more pounds in one day or five or more pounds in one week. If you experience any difficulty breathing, please call 911 BLEEDING: Although the risk of bleeding is minimal, it can happen. If you have any bleeding from the site, apply firm pressure above the puncture site for 10-15 minutes. If the bleeding does not stop, continue manual pressure and call 911 Contact your physician if: You develop a fever greater than 101 degrees Fahrenheit Your site becomes reddened or has any drainage You have an increase in pain or burning at the site or if a large knot forms at the site. If you experience chest pain, shortness of breath, dizziness, or extreme tiredness, stop the activity and rest. Please notify your physicians office if you experience any of these symptoms and they are not relieved by rest please call 911! 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
[2018-02-24 16:16] LABS: BUN/Creatinine Ratio 23 (6-26); Blood Urea Nitrogen 24 mg/dL (6-20); Calcium 9.5 mg/dL (8.6-10.3); Carbon Dioxide 24 mEq/L (23-29); Chloride 103 mEq/L (98-107); Osmolality,Calculated 310 (280-300); Potassium 4.4 mEq/L (3.5-5.1); Sodium 136 mEq/L (136-145); eGFR For Non-African Americans > 60 (> 60)
[2018-02-25] MEDS: 0.9 % Sodium Chloride 1,000 ML IVC SCH ×2 (00:31→01:40)
[2018-02-25] MEDS: *HR* Enoxaparin 40 MG/0.4 ML SYRINGE SQ SCH (05:37)
[2018-02-25] MEDS: *HR* Ticagrelor 90 MG TABLET PO SCH ×2 (08:54→20:58)
[2018-02-25] MEDS: BuPROPion XL (24 HR) 150 MG TABLET PO SCH (08:54)
[2018-02-25] MEDS: Vancomycin Oral Soln 125 MG/2.5 ML UDC PO SCH ×4 (08:54→20:57)
[2018-02-25] MEDS: Aspirin Enteric Coated 81 MG Tablet PO SCH (08:54)
[2018-02-25] MEDS: amLODIPine 5 MG TABLET PO SCH (08:54)
[2018-02-25] MEDS: Fenofibrate 54 MG TABLET PO SCH (08:55)
[2018-02-25] MEDS: Insulin LISPRO 300 UNITS/3 ML VIAL SQ SCH ×7 (08:55→21:01)
[2018-02-25] MEDS: Insulin DETEMIR 100 UNIT/ML X5UNITS SQ SCH ×2 (08:55→20:57)
[2018-02-25] MEDS: Isosorbide MONOnitrate (24 HR) 60 MG TAB.ER.24H PO SCH (08:55)
[2018-02-25 09:11] LABS: Basophils # 0.1 K/mcL (0.0-0.2); Basophils % 0.7 %; Eosinophils # 0.8 K/mcL (0.0-0.6); Eosinophils % 6.7 %; Hematocrit 47.1 % (37.5-50.1); Hemoglobin 15.5 g/dL (12.9-16.9); Immature Granulocytes % 1.8 % (0-4); Lymphocytes # 4.6 K/mcL (0.6-4.6); Lymphocytes % 36.3 %; Mean Corpuscular HGB Conc 32.9 g/dL (31.6-35.5); Mean Corpuscular Hemoglobin 30.8 pg (28.0-33.3); Mean Corpuscular Volume 93.6 fL (83.0-100.0); Monocytes # 1.4 K/mcL (0.0-1.3); Monocytes % 10.8 %; Neutrophils # 5.5 K/mcL (1.6-8.9); Platelet Count 354 K/mcL (140-400); Red Blood Count 5.03 M/mcL (4.19-5.50); Red Cell Distribution Width 14.5 % (11.5-14.5); Segmented Neutrophils % 43.7 %
[2018-02-25 09:28] LABS: BUN/Creatinine Ratio 24 (6-26); Blood Urea Nitrogen 22 mg/dL (6-20); Calcium 9.3 mg/dL (8.6-10.3); Carbon Dioxide 22 mEq/L (23-29); Chloride 108 mEq/L (98-107); Glucose 277 mg/dL (70-105); Osmolality,Calculated 301 (280-300); Potassium 3.8 mEq/L (3.5-5.1); Sodium 139 mEq/L (136-145); eGFR For Non-African Americans > 60 (> 60)
[2018-02-25] MEDS: Nicotine 21 MG PATCH.TD24 TD SCH (12:06)
--- NOTE | 2018-02-25 18:41 | Internal Med Progress Note ---
Hospitalist Progress Note - Encounter Date of Encounter: 02/25/18 Time of Encounter: 11:00 - Subjective Interval History: Patient without any improvement with diarrhea secondary to C. difficile on day 3 of oral vancomycin Awaiting placement to ECF - Exam Vitals: Temp Pulse Resp BP Pulse Ox 98.0 F 82 18 127/68 95 02/25/18 16:13 02/25/18 16:13 02/25/18 16:13 02/25/18 16:13 02/25/18 16:13 Exam: Gen.: Nonacute distress, alert and oriented 3 ENT: Mucosal membranes moist Respiratory: Lungs are clear to auscultation bilaterally without any wheezing rhonchi or rales Cardiovascular: Normal S1 and S2 regular rate rhythm no murmurs rubs or gallops Abdomen: Soft, nontender and nondistended with positive bowel sounds Extremities: No lower extremity edema Skin: Normal color - Assessment and Plan (1) Clostridium difficile diarrhea Current Visit: No Status: Acute Assessment and Plan: Patient with no improvement in diarrhea on day 3 of oral vancomycin with slight leukocytosis Will continue oral vancomycin. (2) Diabetes mellitus Current Visit: No Status: Chronic Assessment and Plan: Poorly controlled with A1c of 10.5 Basal insulin increased this morning Continue to monitor (3) NSTEMI (non-ST elevated myocardial infarction) Current Visit: Yes Status: Acute Assessment and Plan: Patient has been diagnosed with non-ST elevation myocardial infarction. Cardiology consulted with recommendations for left heart catheterization which showed OM 100% instent thrombus sp PCI LALO x 1 with good result. Recommendations to switch to 180mg ticagrelor load and BID but may have to do plavix given history of questionable compliance. Continue aspirin, statin, beta blockers. (4) Essential hypertension Current Visit: No Status: Chronic Assessment and Plan: Continue home medications (5) Tobacco abuse Current Visit: No Status: Chronic Assessment and Plan: Continue nicotine patch. (6) DVT prophylaxis Current Visit: Yes Status: Acute Assessment and Plan: Lovenox subcutaneous - Time Spent with Patient Total time spent is greater than 50% in coordination of care (as documented) at patient's floor/unit and/or counseling patient: Internal Medicine: Result - Labs CBC & Chem 7: 02/25/18 08:23 02/25/18 08:23 Labs: Short CBC 02/25/18 Range/Units 08:23 WBC 12.6 H (4.3-11.1) K/mcL Hgb 15.5 (12.9-16.9) g/dL Hct 47.1 (37.5-50.1) % Plt Count 354 (140-400) K/mcL Neutrophils # 5.5 (1.6-8.9) K/mcL BMP 02/25/18 08:23 Sodium 139 Potassium 3.8 Chloride 108 H Carbon Dioxide 22 L BUN 22 H Creatinine 0.90 Glucose 277 H Calcium 9.3 - ABG Interpretation ABG results: PT/INR, D-dimer PT 10.5 Seconds (9.4-12.1) 02/22/18 08:15 D-Dimer 509 ng/mLFEU (0-500) H 02/22/18 06:19 Consult Discharge Plan - Plan Additional Instructions: RISK FACTORS: STOP SMOKING: If you smoke, STOP. Smoking or tobacco use significantly increases your risk of heart disease because nicotine causes the arteries to narrow or constrict. It also causes fats to stick to the artery. Your chances of having a heart attack are greatly increased if you continue to smoke. For more information, call the education line for smoking cessation 8-290-CSPCQAN EAT A LOW FAT/CHOLESTEROL/SODIUM DIET: This diet may help reduce your chances of having a heart attack. LIFTING: Avoid lifting anything more than 10 pounds for 5-7 days Prior to straining, laughing, sneezing and/or coughing, apply manual pressure directly over insertion site. ACTIVITY: You may walk or climb stairs as tolerated You can resume sexual activity as tolerated In general, you are encouraged to engage in a minimum of 30 minutes or more of moderate intensity physical activity, such as brisk walking, daily or at least 3 -4 times weekly BATHING Do not submerge the site into water (bath tub, hot tub, swimming pool) for 1 week. This can be a source for infection into the blood stream. You may shower after 24 hours SITE CARE: After 24 hours, you may remove the dressing and leave the site open to air. Keep the site clean and dry. Clean gently and pat dry. You can expect bruising and tenderness that gradually resolve within a week or two. Return to work as instructed per your physician Resume driving as instructed per physician Keep all scheduled follow up appointments Resume medications as instructed IMPORTANT: If prescribed a Platelet Aggregation Inhibitor such as, Plavix, Brilinta or Effient: Duration of therapy is minimum one year These medications are often used in combination with Aspirin in prevention of future heart attacks Never discontinue unless consult with your Vending Machine Coin Collector STROKE (CVA) Risk factors for a stroke are: Age, cigarette smoking, diabetes, excessive alcohol consumption, family history, high blood pressure, overweight, physical inactivity, prior stroke, heart attack, diagnosis of carotid artery stenosis or other artery disease. Warning signs: Sudden numbness or weakness of the face, arm or leg; especially on one side of the body, sudden confusion, trouble speaking or understanding, sudden trouble seeing in one or both eyes, sudden trouble walking, dizziness, loss of balance or coordination, sudden severe headache with no cause. Call 911 or go to the Emergency Room. CONGESTIVE HEART FAILURE: If you have been diagnosed with Congestive Heart Failure (CHF) and your symptoms return, make an appointment with your physician Weigh yourself daily. Notify your physician if you have a weight gain of two or more pounds in one day or five or more pounds in one week. If you experience any difficulty breathing, please call 911 BLEEDING: Although the risk of bleeding is minimal, it can happen. If you have any bleeding from the site, apply firm pressure above the puncture site for 10-15 minutes. If the bleeding does not stop, continue manual pressure and call 911 Contact your physician if: You develop a fever greater than 101 degrees Fahrenheit Your site becomes reddened or has any drainage You have an increase in pain or burning at the site or if a large knot forms at the site. If you experience chest pain, shortness of breath, dizziness, or extreme tiredness, stop the activity and rest. Please notify your physicians office if you experience any of these symptoms and they are not relieved by rest please call 911! Referrals: Becky Russell CNP [Partnered Physician] - (Office will call patient at home with follow up appointment) Ahsan Joe MD [Primary Care Provider] - 03/03/18 10:30 am (2) Diabetes mellitus Qualifiers: Diabetes mellitus type: type 2 Diabetes mellitus long-term insulin use: with terminal block assembler use Diabetes mellitus complication status: with hyperglycemia Qualified Code(s): E11.65 - Type 2 diabetes mellitus with hyperglycemia; Z79.4 - exterminator (current) use of insulin
[2018-02-26] MEDS: *HR* Enoxaparin 40 MG/0.4 ML SYRINGE SQ SCH (05:38)
[2018-02-26] MEDS: Aspirin Enteric Coated 81 MG Tablet PO SCH (09:24)
[2018-02-26] MEDS: Fenofibrate 54 MG TABLET PO SCH (09:24)
[2018-02-26] MEDS: Isosorbide MONOnitrate (24 HR) 60 MG TAB.ER.24H PO SCH (09:24)
[2018-02-26] MEDS: BuPROPion XL (24 HR) 150 MG TABLET PO SCH (09:24)
[2018-02-26] MEDS: Vancomycin Oral Soln 125 MG/2.5 ML UDC PO SCH ×4 (09:24→20:37)
[2018-02-26] MEDS: *HR* Ticagrelor 90 MG TABLET PO SCH ×2 (09:25→20:37)
[2018-02-26] MEDS: Insulin DETEMIR 100 UNIT/ML X5UNITS SQ SCH ×2 (09:25→20:38)
[2018-02-26] MEDS: amLODIPine 5 MG TABLET PO SCH (09:25)
[2018-02-26] MEDS: Insulin LISPRO 300 UNITS/3 ML VIAL SQ SCH ×7 (09:25→20:38)
[2018-02-26] MEDS: Nicotine 21 MG PATCH.TD24 TD SCH (12:14)
--- NOTE | 2018-02-26 20:03 | Internal Med Progress Note ---
Hospitalist Progress Note - Encounter Date of Encounter: 02/26/18 Time of Encounter: 11:00 - Subjective Interval History: Patient without any improvement with diarrhea secondary to C. difficile on day 4 of oral vancomycin Awaiting placement to ECF - Exam Vitals: Temp Pulse Resp BP Pulse Ox 98.3 F 75 18 134/80 95 02/26/18 18:43 02/26/18 18:43 02/26/18 18:43 02/26/18 18:43 02/26/18 18:43 Exam: Gen.: Nonacute distress, alert and oriented 3 ENT: Mucosal membranes moist Respiratory: Lungs are clear to auscultation bilaterally without any wheezing rhonchi or rales Cardiovascular: Normal S1 and S2 regular rate rhythm no murmurs rubs or gallops Abdomen: Soft, nontender and nondistended with positive bowel sounds Extremities: No lower extremity edema Skin: Normal color - Assessment and Plan (1) Clostridium difficile diarrhea Current Visit: No Status: Acute Assessment and Plan: Patient with no improvement in diarrhea on day 4 of oral vancomycin with slight leukocytosis Will continue oral vancomycin. (2) Diabetes mellitus Current Visit: No Status: Chronic Assessment and Plan: Poorly controlled with A1c of 10.5 Basal insulin increased this morning Continue to monitor (3) NSTEMI (non-ST elevated myocardial infarction) Current Visit: Yes Status: Acute Assessment and Plan: Patient has been diagnosed with non-ST elevation myocardial infarction. Cardiology consulted with recommendations for left heart catheterization which showed OM 100% instent thrombus sp PCI LALO x 1 with good result. Recommendations to switch to 180mg ticagrelor load and BID but may have to do plavix given history of questionable compliance. Continue aspirin, statin, beta blockers. (4) Essential hypertension Current Visit: No Status: Chronic Assessment and Plan: Continue home medications (5) Tobacco abuse Current Visit: No Status: Chronic Assessment and Plan: Continue nicotine patch. (6) DVT prophylaxis Current Visit: Yes Status: Acute Assessment and Plan: Lovenox subcutaneous - Time Spent with Patient Total time spent is greater than 50% in coordination of care (as documented) at patient's floor/unit and/or counseling patient: Internal Medicine: Result - Labs CBC & Chem 7: 02/25/18 08:23 02/25/18 08:23 - ABG Interpretation ABG results: PT/INR, D-dimer PT 10.5 Seconds (9.4-12.1) 02/22/18 08:15 D-Dimer 509 ng/mLFEU (0-500) H 02/22/18 06:19 Consult Discharge Plan - Plan Additional Instructions: RISK FACTORS: STOP SMOKING: If you smoke, STOP. Smoking or tobacco use significantly increases your risk of heart disease because nicotine causes the arteries to narrow or constrict. It also causes fats to stick to the artery. Your chances of having a heart attack are greatly increased if you continue to smoke. For more information, call the education line for smoking cessation 1-964-NDGIKCG EAT A LOW FAT/CHOLESTEROL/SODIUM DIET: This diet may help reduce your chances of having a heart attack. LIFTING: Avoid lifting anything more than 10 pounds for 5-7 days Prior to straining, laughing, sneezing and/or coughing, apply manual pressure directly over insertion site. ACTIVITY: You may walk or climb stairs as tolerated You can resume sexual activity as tolerated In general, you are encouraged to engage in a minimum of 30 minutes or more of moderate intensity physical activity, such as brisk walking, daily or at least 3 -4 times weekly BATHING Do not submerge the site into water (bath tub, hot tub, swimming pool) for 1 week. This can be a source for infection into the blood stream. You may shower after 24 hours SITE CARE: After 24 hours, you may remove the dressing and leave the site open to air. Keep the site clean and dry. Clean gently and pat dry. You can expect bruising and tenderness that gradually resolve within a week or two. Return to work as instructed per your physician Resume driving as instructed per physician Keep all scheduled follow up appointments Resume medications as instructed IMPORTANT: If prescribed a Platelet Aggregation Inhibitor such as, Plavix, Brilinta or Effient: Duration of therapy is minimum one year These medications are often used in combination with Aspirin in prevention of future heart attacks Never discontinue unless consult with your Event Marketing Manager STROKE (CVA) Risk factors for a stroke are: Age, cigarette smoking, diabetes, excessive alcohol consumption, family history, high blood pressure, overweight, physical inactivity, prior stroke, heart attack, diagnosis of carotid artery stenosis or other artery disease. Warning signs: Sudden numbness or weakness of the face, arm or leg; especially on one side of the body, sudden confusion, trouble speaking or understanding, sudden trouble seeing in one or both eyes, sudden trouble walking, dizziness, loss of balance or coordination, sudden severe headache with no cause. Call 911 or go to the Emergency Room. CONGESTIVE HEART FAILURE: If you have been diagnosed with Congestive Heart Failure (CHF) and your symptoms return, make an appointment with your physician Weigh yourself daily. Notify your physician if you have a weight gain of two or more pounds in one day or five or more pounds in one week. If you experience any difficulty breathing, please call 911 BLEEDING: Although the risk of bleeding is minimal, it can happen. If you have any bleeding from the site, apply firm pressure above the puncture site for 10-15 minutes. If the bleeding does not stop, continue manual pressure and call 911 Contact your physician if: You develop a fever greater than 101 degrees Fahrenheit Your site becomes reddened or has any drainage You have an increase in pain or burning at the site or if a large knot forms at the site. If you experience chest pain, shortness of breath, dizziness, or extreme tiredness, stop the activity and rest. Please notify your physicians office if you experience any of these symptoms and they are not relieved by rest please call 911! Referrals: Becky Russell, DOMINIC [Partnered Physician] - (Office will call patient at home with follow up appointment) Ahsan Joe MD [Primary Care Provider] - 03/03/18 10:30 am (2) Diabetes mellitus Qualifiers: Diabetes mellitus type: type 2 Diabetes mellitus assistant terminal manager insulin use: with assistant terminal manager use Diabetes mellitus complication status: with hyperglycemia Qualified Code(s): E11.65 - Type 2 diabetes mellitus with hyperglycemia; Z79.4 - assisted (current) use of insulin
[2018-02-27] MEDS: *HR* Enoxaparin 40 MG/0.4 ML SYRINGE SQ SCH (05:40)
--- NOTE | 2018-02-27 07:43 | Internal Med Progress Note ---
Hospitalist Progress Note - Encounter Date of Encounter: 02/27/18 Time of Encounter: 11:00 - Subjective Interval History: Patient without any improvement with diarrhea secondary to C. difficile on day 5 of oral vancomycin Improvement in hyperglycemic control Awaiting placement to ECF/longterm - Exam Vitals: Temp Pulse Resp BP Pulse Ox 97.8 F 74 16 120/63 99 02/27/18 07:32 02/27/18 07:32 02/27/18 07:32 02/27/18 07:32 02/27/18 07:32 Exam: Gen.: Nonacute distress, alert and oriented 3 ENT: Mucosal membranes moist Respiratory: Lungs are clear to auscultation bilaterally without any wheezing rhonchi or rales Cardiovascular: Normal S1 and S2 regular rate rhythm no murmurs rubs or gallops Abdomen: Soft, nontender and nondistended with positive bowel sounds Extremities: No lower extremity edema Skin: Normal color - Assessment and Plan (1) Clostridium difficile diarrhea Current Visit: No Status: Acute Assessment and Plan: Patient with no improvement in diarrhea on day 5 of oral vancomycin with slight leukocytosis Will continue oral vancomycin. (2) Diabetes mellitus Current Visit: No Status: Chronic Assessment and Plan: Poorly controlled with A1c of 10.5 Permit and hyperglycemic control as fasting glucose 225 this morning Continue current management (3) NSTEMI (non-ST elevated myocardial infarction) Current Visit: Yes Status: Acute Assessment and Plan: Patient has been diagnosed with non-ST elevation myocardial infarction. Cardiology consulted with recommendations for left heart catheterization which showed OM 100% instent thrombus sp PCI LALO x 1 with good result. Recommendations for ticagrelor 162 mg daily Continue aspirin, statin, beta blockers. (4) Essential hypertension Current Visit: No Status: Chronic Assessment and Plan: Continue home medications (5) Tobacco abuse Current Visit: No Status: Chronic Assessment and Plan: Continue nicotine patch. (6) DVT prophylaxis Current Visit: Yes Status: Acute Assessment and Plan: Lovenox subcutaneous - Time Spent with Patient Total time spent is greater than 50% in coordination of care (as documented) at patient's floor/unit and/or counseling patient: Internal Medicine: Result - Labs CBC & Chem 7: 02/27/18 07:53 02/27/18 07:53 - ABG Interpretation ABG results: PT/INR, D-dimer PT 10.5 Seconds (9.4-12.1) 02/22/18 08:15 D-Dimer 509 ng/mLFEU (0-500) H 02/22/18 06:19 Consult Discharge Plan - Plan Additional Instructions: RISK FACTORS: STOP SMOKING: If you smoke, STOP. Smoking or tobacco use significantly increases your risk of heart disease because nicotine causes the arteries to narrow or constrict. It also causes fats to stick to the artery. Your chances of having a heart attack are greatly increased if you continue to smoke. For more information, call the education line for smoking cessation 6-709-NUGHSBM EAT A LOW FAT/CHOLESTEROL/SODIUM DIET: This diet may help reduce your chances of having a heart attack. LIFTING: Avoid lifting anything more than 10 pounds for 5-7 days Prior to straining, laughing, sneezing and/or coughing, apply manual pressure directly over insertion site. ACTIVITY: You may walk or climb stairs as tolerated You can resume sexual activity as tolerated In general, you are encouraged to engage in a minimum of 30 minutes or more of moderate intensity physical activity, such as brisk walking, daily or at least 3 -4 times weekly BATHING Do not submerge the site into water (bath tub, hot tub, swimming pool) for 1 week. This can be a source for infection into the blood stream. You may shower after 24 hours SITE CARE: After 24 hours, you may remove the dressing and leave the site open to air. Keep the site clean and dry. Clean gently and pat dry. You can expect bruising and tenderness that gradually resolve within a week or two. Return to work as instructed per your physician Resume driving as instructed per physician Keep all scheduled follow up appointments Resume medications as instructed IMPORTANT: If prescribed a Platelet Aggregation Inhibitor such as, Plavix, Brilinta or Effient: Duration of therapy is minimum one year These medications are often used in combination with Aspirin in prevention of future heart attacks Never discontinue unless consult with your Dental Prosthetist STROKE (CVA) Risk factors for a stroke are: Age, cigarette smoking, diabetes, excessive alcohol consumption, family history, high blood pressure, overweight, physical inactivity, prior stroke, heart attack, diagnosis of carotid artery stenosis or other artery disease. Warning signs: Sudden numbness or weakness of the face, arm or leg; especially on one side of the body, sudden confusion, trouble speaking or understanding, sudden trouble seeing in one or both eyes, sudden trouble walking, dizziness, loss of balance or coordination, sudden severe headache with no cause. Call 911 or go to the Emergency Room. CONGESTIVE HEART FAILURE: If you have been diagnosed with Congestive Heart Failure (CHF) and your symptoms return, make an appointment with your physician Weigh yourself daily. Notify your physician if you have a weight gain of two or more pounds in one day or five or more pounds in one week. If you experience any difficulty breathing, please call 911 BLEEDING: Although the risk of bleeding is minimal, it can happen. If you have any bleeding from the site, apply firm pressure above the puncture site for 10-15 minutes. If the bleeding does not stop, continue manual pressure and call 911 Contact your physician if: You develop a fever greater than 101 degrees Fahrenheit Your site becomes reddened or has any drainage You have an increase in pain or burning at the site or if a large knot forms at the site. If you experience chest pain, shortness of breath, dizziness, or extreme tiredness, stop the activity and rest. Please notify your physicians office if you experience any of these symptoms and they are not relieved by rest please call 911! Referrals: Becky Russell CNP [Partnered Physician] - (Office will call patient at home with follow up appointment) Ahsan Joe MD [Primary Care Provider] - 03/03/18 10:30 am (2) Diabetes mellitus Qualifiers: Diabetes mellitus type: type 2 Diabetes mellitus assisted insulin use: with assisted use Diabetes mellitus complication status: with hyperglycemia Qualified Code(s): E11.65 - Type 2 diabetes mellitus with hyperglycemia; Z79.4 - terminal worker (current) use of insulin
[2018-02-27] MEDS: *HR* Ticagrelor 90 MG TABLET PO SCH ×2 (07:44→21:40)
[2018-02-27] MEDS: Isosorbide MONOnitrate (24 HR) 60 MG TAB.ER.24H PO SCH (07:44)
[2018-02-27] MEDS: Aspirin Enteric Coated 81 MG Tablet PO SCH (07:45)
[2018-02-27] MEDS: amLODIPine 5 MG TABLET PO SCH (07:45)
[2018-02-27] MEDS: BuPROPion XL (24 HR) 150 MG TABLET PO SCH (07:45)
[2018-02-27] MEDS: Insulin LISPRO 300 UNITS/3 ML VIAL SQ SCH ×7 (07:45→21:45)
[2018-02-27] MEDS: Fenofibrate 54 MG TABLET PO SCH (07:45)
[2018-02-27] MEDS: Vancomycin Oral Soln 125 MG/2.5 ML UDC PO SCH ×4 (07:46→21:43)
[2018-02-27] MEDS: Insulin DETEMIR 100 UNIT/ML X5UNITS SQ SCH ×2 (07:46→21:44)
[2018-02-27 08:51] LABS: Basophils # 0.1 K/mcL (0.0-0.2); Basophils % 0.6 %; Eosinophils # 0.9 K/mcL (0.0-0.6); Eosinophils % 6.7 %; Immature Granulocytes % 2.3 % (0-4); Lymphocytes # 4.6 K/mcL (0.6-4.6); Lymphocytes % 35.1 %; Mean Corpuscular HGB Conc 32.6 g/dL (31.6-35.5); Mean Corpuscular Hemoglobin 30.4 pg (28.0-33.3); Mean Corpuscular Volume 93.1 fL (83.0-100.0); Mean Platelet Volume 11.1 fL (9.4-12.4); Monocytes # 1.4 K/mcL (0.0-1.3); Monocytes % 10.7 %; Neutrophils # 5.9 K/mcL (1.6-8.9); Platelet Count 368 K/mcL (140-400); Red Blood Count 4.94 M/mcL (4.19-5.50); Red Cell Distribution Width 14.2 % (11.5-14.5); Segmented Neutrophils % 44.6 %
[2018-02-27 09:04] LABS: BUN/Creatinine Ratio 20 (6-26); Blood Urea Nitrogen 18 mg/dL (6-20); Carbon Dioxide 21 mEq/L (23-29); Chloride 108 mEq/L (98-107); Glucose 324 mg/dL (70-105); Osmolality,Calculated 296 (280-300); Potassium 4.3 mEq/L (3.5-5.1); Sodium 136 mEq/L (136-145); eGFR For Non-African Americans > 60 (> 60)
[2018-02-27] MEDS: Nicotine 21 MG PATCH.TD24 TD SCH (12:00)
[2018-02-28] MEDS: *HR* Enoxaparin 40 MG/0.4 ML SYRINGE SQ SCH (06:25)
--- NOTE | 2018-02-28 08:00 | Internal Med Progress Note ---
Hospitalist Progress Note - Encounter Date of Encounter: 02/28/18 Time of Encounter: 11:00 - Subjective Interval History: Patient now reports improvement with diarrhea secondary to C. difficile on day 6 of oral vancomycin Improvement in hyperglycemic control Awaiting placement to ECF/care home - Exam Vitals: Temp Pulse Resp BP Pulse Ox 98.1 F 73 19 126/81 97 02/28/18 07:38 02/28/18 07:38 02/28/18 07:38 02/28/18 07:38 02/28/18 07:38 Exam: Gen.: Nonacute distress, alert and oriented 3 ENT: Mucosal membranes moist Respiratory: Lungs are clear to auscultation bilaterally without any wheezing rhonchi or rales Cardiovascular: Normal S1 and S2 regular rate rhythm no murmurs rubs or gallops Abdomen: Soft, nontender and nondistended with positive bowel sounds Extremities: No lower extremity edema Skin: Normal color - Assessment and Plan (1) Clostridium difficile diarrhea Current Visit: No Status: Acute Assessment and Plan: Patient now reports improvement in diarrhea on day 6 of oral vancomycin with slight leukocytosis Will continue oral vancomycin. (2) Diabetes mellitus Current Visit: No Status: Chronic Assessment and Plan: Poorly controlled with A1c of 10.5 Continue long-acting and intermediate acting insulin (3) NSTEMI (non-ST elevated myocardial infarction) Current Visit: Yes Status: Acute Assessment and Plan: Patient has been diagnosed with non-ST elevation myocardial infarction. Cardiology consulted with recommendations for left heart catheterization which showed OM 100% instent thrombus sp PCI LALO x 1 with good result. Recommendations for ticagrelor 162 mg daily Continue aspirin, statin, beta blockers. (4) Essential hypertension Current Visit: No Status: Chronic Assessment and Plan: Blood pressures controlled; continue home medications (5) Tobacco abuse Current Visit: No Status: Chronic Assessment and Plan: Continue nicotine patch. (6) DVT prophylaxis Current Visit: Yes Status: Acute Assessment and Plan: Lovenox subcutaneous - Time Spent with Patient Total time spent is greater than 50% in coordination of care (as documented) at patient's floor/unit and/or counseling patient: Internal Medicine: Result - Labs CBC & Chem 7: 02/27/18 07:53 02/27/18 07:53 Labs: Short CBC 02/27/18 Range/Units 07:53 WBC 13.2 H (4.3-11.1) K/mcL Hgb 15.0 (12.9-16.9) g/dL Hct 46.0 (37.5-50.1) % Plt Count 368 (140-400) K/mcL Neutrophils # 5.9 (1.6-8.9) K/mcL BMP 02/27/18 07:53 Sodium 136 Potassium 4.3 Chloride 108 H Carbon Dioxide 21 L BUN 18 Creatinine 0.88 Glucose 324 H Calcium 9.0 - ABG Interpretation ABG results: PT/INR, D-dimer PT 10.5 Seconds (9.4-12.1) 02/22/18 08:15 D-Dimer 509 ng/mLFEU (0-500) H 02/22/18 06:19 Consult Discharge Plan - Plan Additional Instructions: RISK FACTORS: STOP SMOKING: If you smoke, STOP. Smoking or tobacco use significantly increases your risk of heart disease because nicotine causes the arteries to narrow or constrict. It also causes fats to stick to the artery. Your chances of having a heart attack are greatly increased if you continue to smoke. For more information, call the education line for smoking cessation 9-183-NOGWBQG EAT A LOW FAT/CHOLESTEROL/SODIUM DIET: This diet may help reduce your chances of having a heart attack. LIFTING: Avoid lifting anything more than 10 pounds for 5-7 days Prior to straining, laughing, sneezing and/or coughing, apply manual pressure directly over insertion site. ACTIVITY: You may walk or climb stairs as tolerated You can resume sexual activity as tolerated In general, you are encouraged to engage in a minimum of 30 minutes or more of moderate intensity physical activity, such as brisk walking, daily or at least 3 -4 times weekly BATHING Do not submerge the site into water (bath tub, hot tub, swimming pool) for 1 week. This can be a source for infection into the blood stream. You may shower after 24 hours SITE CARE: After 24 hours, you may remove the dressing and leave the site open to air. Keep the site clean and dry. Clean gently and pat dry. You can expect bruising and tenderness that gradually resolve within a week or two. Return to work as instructed per your physician Resume driving as instructed per physician Keep all scheduled follow up appointments Resume medications as instructed IMPORTANT: If prescribed a Platelet Aggregation Inhibitor such as, Plavix, Brilinta or Effient: Duration of therapy is minimum one year These medications are often used in combination with Aspirin in prevention of future heart attacks Never discontinue unless consult with your Stamping Bench Die Maker STROKE (CVA) Risk factors for a stroke are: Age, cigarette smoking, diabetes, excessive alcohol consumption, family history, high blood pressure, overweight, physical inactivity, prior stroke, heart attack, diagnosis of carotid artery stenosis or other artery disease. Warning signs: Sudden numbness or weakness of the face, arm or leg; especially on one side of the body, sudden confusion, trouble speaking or understanding, sudden trouble seeing in one or both eyes, sudden trouble walking, dizziness, loss of balance or coordination, sudden severe headache with no cause. Call 911 or go to the Emergency Room. CONGESTIVE HEART FAILURE: If you have been diagnosed with Congestive Heart Failure (CHF) and your symptoms return, make an appointment with your physician Weigh yourself daily. Notify your physician if you have a weight gain of two or more pounds in one day or five or more pounds in one week. If you experience any difficulty breathing, please call 911 BLEEDING: Although the risk of bleeding is minimal, it can happen. If you have any bleeding from the site, apply firm pressure above the puncture site for 10-15 minutes. If the bleeding does not stop, continue manual pressure and call 911 Contact your physician if: You develop a fever greater than 101 degrees Fahrenheit Your site becomes reddened or has any drainage You have an increase in pain or burning at the site or if a large knot forms at the site. If you experience chest pain, shortness of breath, dizziness, or extreme tiredness, stop the activity and rest. Please notify your physicians office if you experience any of these symptoms and they are not relieved by rest please call 911! Referrals: Becky Russell CNP [Partnered Physician] - (Office will call patient at home with follow up appointment) Ahsan Joe MD [Primary Care Provider] - 03/03/18 10:30 am (2) Diabetes mellitus Qualifiers: Diabetes mellitus type: type 2 Diabetes mellitus moth exterminator insulin use: with moth exterminator use Diabetes mellitus complication status: with hyperglycemia Qualified Code(s): E11.65 - Type 2 diabetes mellitus with hyperglycemia; Z79.4 - watermaster (current) use of insulin
[2018-02-28] MEDS: BuPROPion XL (24 HR) 150 MG TABLET PO SCH (09:45)
[2018-02-28] MEDS: Isosorbide MONOnitrate (24 HR) 60 MG TAB.ER.24H PO SCH (09:45)
[2018-02-28] MEDS: Aspirin Enteric Coated 81 MG Tablet PO SCH (09:45)
[2018-02-28] MEDS: Fenofibrate 54 MG TABLET PO SCH (09:45)
[2018-02-28] MEDS: *HR* Ticagrelor 90 MG TABLET PO SCH ×2 (09:45→20:48)
[2018-02-28] MEDS: Vancomycin Oral Soln 125 MG/2.5 ML UDC PO SCH ×4 (09:46→20:48)
[2018-02-28] MEDS: Insulin LISPRO 300 UNITS/3 ML VIAL SQ SCH ×7 (09:50→20:53)
[2018-02-28] MEDS: Insulin DETEMIR 100 UNIT/ML X5UNITS SQ SCH ×2 (09:54→20:52)
[2018-02-28] MEDS: amLODIPine 5 MG TABLET PO SCH (09:54)
[2018-02-28] MEDS: Nicotine 21 MG PATCH.TD24 TD SCH (12:04)
[2018-03-01] MEDS: *HR* Enoxaparin 40 MG/0.4 ML SYRINGE SQ SCH (06:15)
[2018-03-01] MEDS: Insulin LISPRO 300 UNITS/3 ML VIAL SQ SCH ×7 (08:04→21:25)
[2018-03-01] MEDS: Vancomycin Oral Soln 125 MG/2.5 ML UDC PO SCH ×4 (08:05→21:22)
[2018-03-01] MEDS: Insulin DETEMIR 100 UNIT/ML X5UNITS SQ SCH ×2 (08:05→21:24)
[2018-03-01] MEDS: Isosorbide MONOnitrate (24 HR) 60 MG TAB.ER.24H PO SCH (08:07)
[2018-03-01] MEDS: BuPROPion XL (24 HR) 150 MG TABLET PO SCH (08:07)
[2018-03-01] MEDS: Fenofibrate 54 MG TABLET PO SCH (08:07)
[2018-03-01] MEDS: Aspirin Enteric Coated 81 MG Tablet PO SCH (08:07)
[2018-03-01] MEDS: *HR* Ticagrelor 90 MG TABLET PO SCH ×2 (08:07→21:22)
[2018-03-01] MEDS: amLODIPine 5 MG TABLET PO SCH (08:07)
[2018-03-01] MEDS: Nicotine 21 MG PATCH.TD24 TD SCH (11:40)
--- NOTE | 2018-03-01 20:33 | Internal Med Progress Note ---
Hospitalist Progress Note - Encounter Date of Encounter: 03/01/18 Time of Encounter: 11:00 - Subjective Interval History: Patient now reports improvement with diarrhea secondary to C. difficile on day 7 of oral vancomycin Improvement in hyperglycemic control Awaiting placement to ECF/mcfp - Exam Vitals: Temp Pulse Resp BP Pulse Ox 97.6 F 72 18 127/76 94 03/01/18 15:44 03/01/18 15:44 03/01/18 15:44 03/01/18 15:44 03/01/18 15:44 Exam: Gen.: Nonacute distress, alert and oriented 3 ENT: Mucosal membranes moist Respiratory: Lungs are clear to auscultation bilaterally without any wheezing rhonchi or rales Cardiovascular: Normal S1 and S2 regular rate rhythm no murmurs rubs or gallops Abdomen: Soft, nontender and nondistended with positive bowel sounds Extremities: No lower extremity edema Skin: Normal color - Assessment and Plan (1) Clostridium difficile diarrhea Current Visit: No Status: Acute Assessment and Plan: Patient now reports improvement in diarrhea on day 7 of oral vancomycin with slight leukocytosis Will continue oral vancomycin. (2) Diabetes mellitus Current Visit: No Status: Chronic Assessment and Plan: Poorly controlled with A1c of 10.5 Continue long-acting and intermediate acting insulin (3) NSTEMI (non-ST elevated myocardial infarction) Current Visit: Yes Status: Acute Assessment and Plan: Patient has been diagnosed with non-ST elevation myocardial infarction. Cardiology consulted with recommendations for left heart catheterization which showed OM 100% instent thrombus sp PCI LALO x 1 with good result. Recommendations for ticagrelor 162 mg daily Continue aspirin, statin, beta blockers. (4) Essential hypertension Current Visit: No Status: Chronic Assessment and Plan: Blood pressures controlled; continue home medications (5) Tobacco abuse Current Visit: No Status: Chronic Assessment and Plan: Continue nicotine patch. (6) DVT prophylaxis Current Visit: Yes Status: Acute Assessment and Plan: Lovenox subcutaneous - Time Spent with Patient Total time spent is greater than 50% in coordination of care (as documented) at patient's floor/unit and/or counseling patient: Internal Medicine: Result - Labs CBC & Chem 7: 02/27/18 07:53 02/27/18 07:53 - ABG Interpretation ABG results: PT/INR, D-dimer PT 10.5 Seconds (9.4-12.1) 02/22/18 08:15 D-Dimer 509 ng/mLFEU (0-500) H 02/22/18 06:19 Consult Discharge Plan - Plan Additional Instructions: RISK FACTORS: STOP SMOKING: If you smoke, STOP. Smoking or tobacco use significantly increases your risk of heart disease because nicotine causes the arteries to narrow or constrict. It also causes fats to stick to the artery. Your chances of having a heart attack are greatly increased if you continue to smoke. For more information, call the education line for smoking cessation 9-066-VKREYBK EAT A LOW FAT/CHOLESTEROL/SODIUM DIET: This diet may help reduce your chances of having a heart attack. LIFTING: Avoid lifting anything more than 10 pounds for 5-7 days Prior to straining, laughing, sneezing and/or coughing, apply manual pressure directly over insertion site. ACTIVITY: You may walk or climb stairs as tolerated You can resume sexual activity as tolerated In general, you are encouraged to engage in a minimum of 30 minutes or more of moderate intensity physical activity, such as brisk walking, daily or at least 3 -4 times weekly BATHING Do not submerge the site into water (bath tub, hot tub, swimming pool) for 1 week. This can be a source for infection into the blood stream. You may shower after 24 hours SITE CARE: After 24 hours, you may remove the dressing and leave the site open to air. Keep the site clean and dry. Clean gently and pat dry. You can expect bruising and tenderness that gradually resolve within a week or two. Return to work as instructed per your physician Resume driving as instructed per physician Keep all scheduled follow up appointments Resume medications as instructed IMPORTANT: If prescribed a Platelet Aggregation Inhibitor such as, Plavix, Brilinta or Effient: Duration of therapy is minimum one year These medications are often used in combination with Aspirin in prevention of future heart attacks Never discontinue unless consult with your Wafer Fab Operator STROKE (CVA) Risk factors for a stroke are: Age, cigarette smoking, diabetes, excessive alcohol consumption, family history, high blood pressure, overweight, physical inactivity, prior stroke, heart attack, diagnosis of carotid artery stenosis or other artery disease. Warning signs: Sudden numbness or weakness of the face, arm or leg; especially on one side of the body, sudden confusion, trouble speaking or understanding, sudden trouble seeing in one or both eyes, sudden trouble walking, dizziness, loss of balance or coordination, sudden severe headache with no cause. Call 911 or go to the Emergency Room. CONGESTIVE HEART FAILURE: If you have been diagnosed with Congestive Heart Failure (CHF) and your symptoms return, make an appointment with your physician Weigh yourself daily. Notify your physician if you have a weight gain of two or more pounds in one day or five or more pounds in one week. If you experience any difficulty breathing, please call 911 BLEEDING: Although the risk of bleeding is minimal, it can happen. If you have any bleeding from the site, apply firm pressure above the puncture site for 10-15 minutes. If the bleeding does not stop, continue manual pressure and call 911 Contact your physician if: You develop a fever greater than 101 degrees Fahrenheit Your site becomes reddened or has any drainage You have an increase in pain or burning at the site or if a large knot forms at the site. If you experience chest pain, shortness of breath, dizziness, or extreme tiredness, stop the activity and rest. Please notify your physicians office if you experience any of these symptoms and they are not relieved by rest please call 911! 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
[2018-03-02] MEDS: *HR* Enoxaparin 40 MG/0.4 ML SYRINGE SQ SCH (06:47)
[2018-03-02] MEDS: Isosorbide MONOnitrate (24 HR) 60 MG TAB.ER.24H PO SCH (08:47)
[2018-03-02] MEDS: BuPROPion XL (24 HR) 150 MG TABLET PO SCH (08:47)
[2018-03-02] MEDS: Fenofibrate 54 MG TABLET PO SCH (08:47)
[2018-03-02] MEDS: *HR* Ticagrelor 90 MG TABLET PO SCH (08:47)
[2018-03-02] MEDS: amLODIPine 5 MG TABLET PO SCH (08:48)
[2018-03-02] MEDS: Insulin DETEMIR 100 UNIT/ML X5UNITS SQ SCH (08:48)
[2018-03-02] MEDS: Aspirin Enteric Coated 81 MG Tablet PO SCH (08:48)
[2018-03-02] MEDS: Vancomycin Oral Soln 125 MG/2.5 ML UDC PO SCH ×3 (08:48→18:21)
[2018-03-02] MEDS: Insulin LISPRO 300 UNITS/3 ML VIAL SQ SCH ×6 (08:50→18:22)
[2018-03-02 11:20] VITALS: BP 101/60
[2018-03-02] MEDS: Nicotine 21 MG PATCH.TD24 TD SCH (12:12)
--- NOTE | 2018-03-02 14:50 | Discharge Summary ---
- NOTES TO OUTPATIENT PROVIDER Notes to Outpatient Provider: NSTEMI s/p LHC and LALO, now on ASA and Brilinta; has 3 more days of PO Vancomycin for c.diff; monitor blood sugars; Date of Encounter: 03/02/18 Time of Encounter: 12:25 - Discharge Diagnosis (1) NSTEMI (non-ST elevated myocardial infarction) Priority: Primary Status: Acute (2) Tobacco abuse Priority: Secondary Status: Chronic (3) Essential hypertension Priority: Secondary Status: Chronic (4) Diabetes mellitus Priority: Secondary Status: Chronic Qualifiers: Diabetes mellitus type: type 2 Diabetes mellitus snf insulin use: with snf use Diabetes mellitus complication status: with hyperglycemia Qualified Code(s): E11.65 - Type 2 diabetes mellitus with hyperglycemia; 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 Best is a 53 year old homeless male with the above medical problems, admitted with left-sided chest pain. He was noted to have nonspecific EKG changes with elevated troponins, treated with ACS protocol. Cardiology was consulted and patient underwent left heart catheterization, noted to have in- stent thrombosis, received PTCA/drug-eluting stent placement in the mid first OM. He has been started on dual antiplatelet therapy with aspirin and Brilinta. Echocardiogram showed preserved EF, mild diastolic dysfunction, mild concentric LVH. He was recently discharged from our hospital after being treated for hyperglycemia and C. difficile diarrhea. However, he failed to fill his oral vancomycin prescription, has been started on this medication during this admission, completed 7 days with 3 remaining days of oral vancomycin. He continues to have some diarrhea but otherwise stable with no fever or leukocytosis. His blood sugars are somewhat better controlled, he is being discharged on basal bolus insulin regimen. He has had a prolonged hospitalization due to social issues. He is currently medically stable for discharge. Discharge discussed with: patient, nurse, social work - Time Spent with Patient Total time spent providing and/or coordinating discharge services: Greater than 30 minutes (45 min) - Discharge Medications Home Medications: Amlodipine Besylate 10 mg PO DAILY 02/16/18 [History] Aspirin Enteric Coated [Aspirin EC] 81 mg PO DAILY 02/16/18 [History] Bupropion HCl [Wellbutrin Xl] 300 mg PO DAILY 02/16/18 [History] Cilostazol [Pletal] 100 mg PO BID 02/16/18 [History] Dapagliflozin Propanediol [Farxiga] 5 mg PO DAILY 02/16/18 [History] Donepezil HCl [Aricept] 10 mg PO DAILY 02/16/18 [History] Fenofibrate Nanocrystallized [Fenofibrate] 145 mg PO DAILY 02/16/18 [History] Glimepiride [Amaryl] 4 mg PO DAILY 02/16/18 [History] Isosorbide MONOnitrate (24 HR) [Imdur] 60 mg PO DAILY 02/16/18 [History] Metformin HCl [Glucophage] 1,000 mg PO BID 02/16/18 [History] Metoprolol Tartrate [Lopressor] 50 mg PO BID 02/16/18 [History] Rosuvastatin [Crestor] 40 mg PO HS 02/16/18 [History] Sertraline [Zoloft] 50 mg PO DAILY 02/16/18 [History] Insulin DETEMIR [Levemir] 40 unit SQ BID [id number] 03/02/18 [Rx] Insulin LISPRO [HumaLOG] 15 units SQ TIDWM vial 03/02/18 [Rx] Ticagrelor [Brilinta] 90 mg PO BID tablet 03/02/18 [Rx] Vancomycin Oral Soln [Firvanq] 125 mg PO QID 3 Days udc 03/02/18 [Rx] Allergies/Adverse Reactions: 3 Allergy/AdvReac Type Severity Reaction Status Date / Time No Known Allergies Allergy Verified 01/29/18 16:58 Date of admission: 02/22/18 09:31 Primary care physician: Ahsan Joe Consults: 02/22/18 10:14 Consult to Cardiology [CONS] Routine Comment: NSTEMI Consulting Provider: Dale Ruth Reason for Consult: NSTEMI Call Completed: Yes 02/22/18 10:24 Consult to Sales Performance Analyst [CONS] Routine Reason for SW Consult: Homeless 02/22/18 16:33 Consult to Cardiac Rehabilitation-Phase1 [CONS] Routine Comment: Reason for Consult: post op PCI Call Completed: Yes Discharging clinician: Sherrell Saenz Anticipated date of discharge: 03/02/18 - Constitutional Vitals: Temp Pulse Resp BP Pulse Ox 97.6 F 71 18 101/60 94 03/02/18 11:18 03/02/18 11:18 03/02/18 11:18 03/02/18 11:18 03/02/18 11:18 General appearance: Present: A&O X 3 (slurred/garbled speech due to previous CVA ), answers questions appropriately Exam: . - Cardiovascular Cardiovascular exam: Present: RRR, +S1, +S2. Absent: diastolic murmur, gallop, rubs, systolic murmur - Patient Status Disposition: Transfer SNF Condition: Good Functional capacity at discharge: independent ambulation Overall status at discharge: patient is progressing back to baseline - Discharge Instructions Follow Up With: Becky Russell CNP [Partnered Physician] - (Office will call patient at home with follow up appointment) Ahsan Joe MD [Primary Care Provider] - 03/03/18 10:30 am Forms: ED Satisfaction Letter Additional Instructions: RISK FACTORS: STOP SMOKING: If you smoke, STOP. Smoking or tobacco use significantly increases your risk of heart disease because nicotine causes the arteries to narrow or constrict. It also causes fats to stick to the artery. Your chances of having a heart attack are greatly increased if you continue to smoke. For more information, call the education line for smoking cessation 3-614-SFKXZOO EAT A LOW FAT/CHOLESTEROL/SODIUM DIET: This diet may help reduce your chances of having a heart attack. LIFTING: Avoid lifting anything more than 10 pounds for 5-7 days Prior to straining, laughing, sneezing and/or coughing, apply manual pressure directly over insertion site. ACTIVITY: You may walk or climb stairs as tolerated You can resume sexual activity as tolerated In general, you are encouraged to engage in a minimum of 30 minutes or more of moderate intensity physical activity, such as brisk walking, daily or at least 3 -4 times weekly BATHING Do not submerge the site into water (bath tub, hot tub, swimming pool) for 1 week. This can be a source for infection into the blood stream. You may shower after 24 hours SITE CARE: After 24 hours, you may remove the dressing and leave the site open to air. Keep the site clean and dry. Clean gently and pat dry. You can expect bruising and tenderness that gradually resolve within a week or two. Return to work as instructed per your physician Resume driving as instructed per physician Keep all scheduled follow up appointments Resume medications as instructed IMPORTANT: If prescribed a Platelet Aggregation Inhibitor such as, Plavix, Brilinta or Effient: Duration of therapy is minimum one year These medications are often used in combination with Aspirin in prevention of future heart attacks Never discontinue unless consult with your Mailing Machine Operator STROKE (CVA) Risk factors for a stroke are: Age, cigarette smoking, diabetes, excessive alcohol consumption, family history, high blood pressure, overweight, physical inactivity, prior stroke, heart attack, diagnosis of carotid artery stenosis or other artery disease. Warning signs: Sudden numbness or weakness of the face, arm or leg; especially on one side of the body, sudden confusion, trouble speaking or understanding, sudden trouble seeing in one or both eyes, sudden trouble walking, dizziness, loss of balance or coordination, sudden severe headache with no cause. Call 911 or go to the Emergency Room. CONGESTIVE HEART FAILURE: If you have been diagnosed with Congestive Heart Failure (CHF) and your symptoms return, make an appointment with your physician Weigh yourself daily. Notify your physician if you have a weight gain of two or more pounds in one day or five or more pounds in one week. If you experience any difficulty breathing, please call 911 BLEEDING: Although the risk of bleeding is minimal, it can happen. If you have any bleeding from the site, apply firm pressure above the puncture site for 10-15 minutes. If the bleeding does not stop, continue manual pressure and call 911 Contact your physician if: You develop a fever greater than 101 degrees Fahrenheit Your site becomes reddened or has any drainage You have an increase in pain or burning at the site or if a large knot forms at the site. If you experience chest pain, shortness of breath, dizziness, or extreme tiredness, stop the activity and rest. Please notify your physicians office if you experience any of these symptoms and they are not relieved by rest please call 911! - Diet and Activity Activity: resume usual activities as tolerated Diet: diabetic diet, low fat, low cholesterol, low salt diet
--- NOTE | 2018-03-02 15:02 | Physician Discharge Referral ---
ExtendedCare Referral Info Provider in Charge: Sherrell Saenz Provider in Charge after Transfer: PCP Institutional Level of Care: Skilled - Diagnosis (1) NSTEMI (non-ST elevated myocardial infarction) Priority: Primary Status: Acute (2) Tobacco abuse Priority: Secondary Status: Chronic (3) Essential hypertension Priority: Secondary Status: Chronic (4) Diabetes mellitus Priority: Secondary Status: Chronic (5) Clostridium difficile diarrhea Priority: Primary Status: Acute (6) CVA (cerebral vascular accident) Priority: Secondary Status: Chronic (7) Peripheral arterial disease Priority: Secondary Status: Chronic Prognosis: Good Aware of Diagnosis: Patient Aware of Prognosis: Patient - Transfer Medications Home Medications: Amlodipine Besylate 10 mg PO DAILY 02/16/18 [History] Aspirin Enteric Coated [Aspirin EC] 81 mg PO DAILY 02/16/18 [History] Bupropion HCl [Wellbutrin Xl] 300 mg PO DAILY 02/16/18 [History] Cilostazol [Pletal] 100 mg PO BID 02/16/18 [History] Dapagliflozin Propanediol [Farxiga] 5 mg PO DAILY 02/16/18 [History] Donepezil HCl [Aricept] 10 mg PO DAILY 02/16/18 [History] Fenofibrate Nanocrystallized [Fenofibrate] 145 mg PO DAILY 02/16/18 [History] Glimepiride [Amaryl] 4 mg PO DAILY 02/16/18 [History] Isosorbide MONOnitrate (24 HR) [Imdur] 60 mg PO DAILY 02/16/18 [History] Metformin HCl [Glucophage] 1,000 mg PO BID 02/16/18 [History] Metoprolol Tartrate [Lopressor] 50 mg PO BID 02/16/18 [History] Rosuvastatin [Crestor] 40 mg PO HS 02/16/18 [History] Sertraline [Zoloft] 50 mg PO DAILY 02/16/18 [History] Insulin DETEMIR [Levemir] 40 unit SQ BID [id number] 03/02/18 [Rx] Insulin LISPRO [HumaLOG] 15 units SQ TIDWM vial 03/02/18 [Rx] Ticagrelor [Brilinta] 90 mg PO BID tablet 03/02/18 [Rx] Vancomycin Oral Soln [Firvanq] 125 mg PO QID 3 Days udc 03/02/18 [Rx] Allergies/Adverse Reactions: 3 Allergy/AdvReac Type Severity Reaction Status Date / Time No Known Allergies Allergy Verified 01/29/18 16:58 - Respiratory Orders Smoking Cessation: Smoking cessation has been advised. For more information, call the [place] Tobacco Quit Line at 3-184-XORN-NOW. - Advance Directives Code Status: Full Code - Mobility Orders Ambulate - Rehabiliation Orders Rehab Potential: Good Rehab Orders: ROM Exercises, Evaluation for Physical Therapy, Evaluation for Occupational Therapy - Diet Orders No Concentrated Sweets (diabetic), Cardiac CERTIFICATION: I certify that the transfer of the above named patient to an Extended Care Facility is necessary for the continuing treatment of the diagnosis listed. The above information is true and accurate reflection of patient's current condition. Confidential - Redisclosure prohibited without a patient's written consent.
== END 2018-03-02 18:45 | DRG 247 ==
LOC: EMEROOARM 06:03 → SUATTDRO 09:31 → 2NNU 09:31 → 2ANU 02-23 13:40
PROVIDERS: ADMIT Internal Medicine; ATTEND Internal Medicine

== ENCOUNTER 2018-10-14 06:03 | Inpatient (IN) ==
[2018-10-14] MEDS ORDERED: CeFAZolin Syr 2,000MG/20 ML 2,000 MG/20 ML SYRINGE IVPB ONE (06:23)
[2018-10-14] MEDS ORDERED: Albuterol 2.5 MG/3 ML NEBULIZER IH ONE (06:23)
[2018-10-14] MEDS ORDERED: Ringers Solution, Lactated 1,000 ML IVC SCH ×2 (06:30→07:15)
[2018-10-14] MEDS ORDERED: *HR* Rocuronium Bromide 50 MG/5 ML VIAL ONE ×2 (06:46→10:09)
[2018-10-14] MEDS ORDERED: Lidocaine -MPF 2% 2 ML VIAL ONE ×3 (06:46→07:48)
[2018-10-14] MEDS ORDERED: *HR* Phenylephrine 10 MG/ML VIAL ONE ×2 (06:46→09:49)
[2018-10-14] MEDS ORDERED: Dexamethasone 4 MG/ML VIAL ONE (06:46)
[2018-10-14] MEDS ORDERED: Ondansetron 4 MG/2 ML VIAL ONE (06:46)
[2018-10-14] MEDS ORDERED: *HR* Propofol 200 MG/20 ML VIAL IVP ONE (06:48)
[2018-10-14] MEDS ORDERED: *HR* FentaNYL (PF) 100 MCG/2 ML VIAL ONE ×2 (06:49→12:47)
[2018-10-14] MEDS ORDERED: *HR* Midazolam HCl 2 MG/2 ML VIAL ONE ×2 (06:49→07:56)
--- NOTE | 2018-10-14 06:58 | Anesthesia Evaluation PreOp ---
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, CKD), Diabetes Type II Anesthesia History: No Prior Anesthetic Complications, Past Anesthesia (left fem-pop 08/31) Alcohol Use: none Drug use: marijuana Medications and Allergies Aspirin Enteric Coated [Aspirin EC] 81 mg PO DAILY 02/16/18 [History] Bupropion HCl [Wellbutrin Xl] 300 mg PO DAILY 02/16/18 [History] Cilostazol [Pletal] 100 mg PO BID 02/16/18 [History] Fenofibrate Nanocrystallized [Fenofibrate] 160 mg PO DAILY 02/16/18 [History] Glimepiride [Amaryl] 4 mg PO DAILY 02/16/18 [History] Metoprolol Tartrate [Lopressor] 50 mg PO BID 02/16/18 [History] Rosuvastatin [Crestor] 40 mg PO HS 02/16/18 [History] Sertraline [Zoloft] 50 mg PO DAILY 02/16/18 [History] Ticagrelor [Brilinta] 90 mg PO BID tablet 03/02/18 [Rx] Amlodipine Besylate 10 mg PO DAILY 07/07/18 [History] Dapagliflozin Propanediol [Farxiga] 10 mg PO DAILY 07/07/18 [History] Insulin DETEMIR [Levemir] 25 unit SQ QPM 07/07/18 [History] Insulin DETEMIR [Levemir] 65 unit SQ QAM 07/07/18 [History] Isosorbide MONOnitrate (24 HR) [Imdur] 120 mg PO DAILY 07/07/18 [History] Metformin HCl [Glucophage] 1,000 mg PO BID #0 07/07/18 [Rx] Albuterol Neb [AccuNeb] 3 ml IH Q6H PRN 07/22/18 [History] Cholecalciferol (Vitamin D3) [Vitamin D3] 5,000 unit PO DAILY 07/22/18 [History] Fluticasone/Salmeterol [Advair 250-50 Diskus] 1 puff IH BID 07/22/18 [History] Nitroglycerin [Nitrostat] 0.4 mg SL DAILY PRN 07/22/18 [History] Tiotropium [Spiriva] 1 puff IH 0700 07/22/18 [History] Gabapentin [Neurontin] 300 mg PO TID 08/19/18 [History] Ibuprofen 800 mg PO Q6H PRN 08/19/18 [History] Insulin ASPART [Novolog Flexpen] 0 - 12 unit SQ ACHS 08/19/18 [History] Allergy/AdvReac Type Severity Reaction Status Date / Time No Known Allergies Allergy Verified 07/22/18 13:27 - Meds/Allergy Pre-op Review Medications Reviewed: Yes Allergies Reviewed: Yes Beta Blockers on Current Med List: Yes If Beta Blockers taken, Date/Time (Last Dose taken): today 529 Anesthesia Results - Labs Laboratory Tests 10/07/18 10/07/18 10/07/18 12:54 12:54 12:54 Hgb 14.3 Hct 46.6 Plt Count 385 PT 10.8 INR 1.0 APTT 36.3 H Sodium 137 Potassium 5.1 BUN 25 H Creatinine 1.26 - Imaging Additional studies: stress test: Impression: Moderate mid-basal inferolateral infarct with mild trevor-infarct ischemia present on perfusion study (largely fixed with partially reversible mid-basal inferolateral/lateral perfusion defect of moderate size and moderate intensity, SDS = 3) . Stress LVEF 70%. Pharmacologic stress ECG non-diagnostic for ischemia. Cath 2018: Indications: Non-Stemi with ongoing chest pain and rising troponin ACS < 24 hrs NSTE - ACS Impressions: There is critical one vessel coronary artery disease (instent) The left ventricle is normal and has normal contractility EF 50% Patient had successful PTCA/Drug-Eluting Stent placement in the mid 1st OM. Anesthesia Exam Weight: 99kg BMI36 - HEENT Pupil (Motor): EOMI Mallampati: II Teeth: Edentulous Oral Opening: Greater than 3 - PLANT WORKER LOC: Oriented PLANT WORKER Motor: Normal RUE, Normal LUE, Normal RLE, Normal LLE, Normal Face PLANT WORKER Sensory: Normal: RUE, LUE, RLE, LLE, Face - Cardiac Rhythm: Regular Murmur: None - Pulmonary Breath Sounds: bilateral Clear Respiratory Effort: Symmetrical Anesthesia Assess/Plan ASA Score: 3 Level of consciousness: Cooperative, Oriented, Tranquil Anesthetic Plan: General Monitoring Plan: Standard Monitors, A-Line Recovery Plan: PACU (agrees to GA and lines. Wll place 2 large ivs, a-line and use ECOM tube)
[2018-10-14] MEDS ORDERED: Heparin 1,000 UNITS/500 mL 1,500 ML ONE (07:09)
[2018-10-14] MEDS ORDERED: traMADol 50 MG TABLET PO PRN (07:10)
[2018-10-14] MEDS ORDERED: *HR* FentaNYL (PF) 100 MCG/2 ML VIAL IVP PRN (07:10)
[2018-10-14] MEDS ORDERED: *HR* OxyCODONE Immed Rel 5 MG TABLET PO PRN (07:10)
[2018-10-14] MEDS ORDERED: *HR* Promethazine 25 MG/ML VIAL IVP PRN (07:10)
[2018-10-14] MEDS ORDERED: Heparin 1,000 UNITS/500 mL 0 ML ONE (07:18)
--- NOTE | 2018-10-14 07:33 | History & Physical Report ---
Date of Encounter: 10/14/18 Time of Encounter: 07:28 24 Hour HP Update - Instructions Instructions: If the History and Physical is less than 30 days old and was completed prior to A.M. admission and or procedure and has NOT been updated on calendar day of procedure please complete this update prior to performing procedure. - Update Patient reports changes in Medical Condition: No Changes in examination, assessment, or condition: No Changes in Medication: No Preop tests/diagnostics Reviewed: Yes Surgery Remains Indicated: Yes Consent for Planned Operative Procedure(s) Verified: Yes - Pre-Operative Checklist Preoperative Checklist Indicated: Yes Prophylactic Antibiotic Ordered: Yes (vancomycin due to risk of MRSA) Home Medications Include Beta Zuleyma: Yes Beta Zuleyma Taken Today (Day of Surgery): Yes Beta Zuleyma Taken Yesterday (Day Prior to Surgery): Yes Is VTE Prophylaxis Indicated?: Yes
[2018-10-14] MEDS ORDERED: Water for inj. (sterile) 20 ML IV ONE ×2 (07:34→10:53)
[2018-10-14] MEDS ORDERED: *HR* Remifentanil 1 MG VIAL IVP ONE ×2 (07:34→10:53)
[2018-10-14] MEDS ORDERED: Vancomycin 1,000 MG, Sodium Chloride IRRigation 1,000 ML IR ONE (07:45)
[2018-10-14] MEDS ORDERED: *HR* PHENYLEPHRINE 1,000 MCG/10 ML SYRINGE IVP ONE (08:04)
[2018-10-14] MEDS ORDERED: *HR* Heparin 5,000 UNIT/ML VIAL ONE ×2 (08:53→11:21)
[2018-10-14] MEDS ORDERED: EPHEDrine 50 MG/ML VIAL ONE (09:04)
[2018-10-14 09:08] LABS: ABG Base Excess -7 mEq/L (-2 to 3); ABG Chloride 119 mEq/L (98-107); ABG Glucose 133 mg/dL (60-95); ABG HCO3 18 mEq/L (21-27); ABG Ionized Calcium 0.52 mmol/L (1.15-1.35); ABG Oxygen Saturation 98 % (95-98); ABG PCO2 34 mmHg (35-45); ABG PH 7.34 pH Units (7.32-7.45); ABG PO2 117 mmHg (85-104); ABG TCO2 19 mEq/L (20-26)
[2018-10-14] MEDS ORDERED: Vancomycin 1,000 MG VIAL ONE (10:47)
[2018-10-14] MEDS ORDERED: Neostigmine Methylsulfate 3 MG/3 ML SYRINGE ONE (12:31)
--- NOTE | 2018-10-14 13:00 | Operative Note ---
Date of procedure: 10/14/18 Pre-op diagnosis: Peripheral vascular disease with disabling claudication Post-op diagnosis: same Procedure: Right common femoral to above-knee popliteal artery bypass with reversed right greater saphenous vein. Complications: None Anesthesia: GETA Surgeon: Jesus Smith Was there an assistant inventory manager present: Yes Nail Tech: Mo Vale Estimated blood loss (cc): 100 Specimen: None Condition: stable Disposition: PACU Procedure in Detail: Indications: The patient is a 53-year-old male with a history of hyperlipidemia, hypertension, diabetes, coronary artery disease and tobacco abuse who presented to clinic with complaints of peripheral vascular disease with disabling claudication. He underwent angiography and was found to have a right superficial femoral artery occlusion. Procedure: The patient was identified in the preoperative area. The risks, benefits, and alternatives of the procedure were discussed. All questions were answered. The patient was taken to the operating room and placed in supine position on the operating room table. After the induction of general endotracheal anesthesia, he was cleaned and draped in normal sterile fashion. An oblique incision was made over the right femoral vessels sharply. Hemostasis was obtained with electrocautery. Through a process of blunt, sharp, and electrocautery dissection, the right common, deep and superficial femoral arteries were dissected circumferentially and surrounded with vessel loops. A longitudinal incision was made on the right medial distal thigh sharply. Hemostasis was obtained with electrocautery. Through a process of blunt, sharp, and electrocautery dissection, the right above-knee popliteal artery was dissected proximally and distally and surrounded with vessel loops. A skin incision was made along the thigh between the femoral and popliteal incisions along the course of the saphenous vein. The saphenous vein was completely mobilized with blunt, sharp, and electrocautery dissection. The side branches were clamped, divided, tied off with 3-0 and 4-0 silk sutures. Distally, the vein was mobilized in the calf, clamped, divided, tied off with silk suture ligature and then further completely mobilized through the incisions. The vein was flushed and noted to be adequate in size and consistency for bypass. A tunnel was created between the femoral and popliteal artery incisions. The vein was reversed. Tension was applied to the femoral vessel loops. An arteriotomy was made in the common femoral artery and the vein graft was cut to fit the defect. The graft was anastamosed with a running 6-0 Prolene. After completing the closure, the vessels were reperfused and pulsatile flow was noted through the vein. The vein was marked without torsion and then it was tunneled between the two incisions. After tunneling, the vein was unclamped and was noted to have strong pulsatile flow. The vein was then clamped with an atraumatic bulldog clamp. The popliteal vessels were occluded and a longitudinal arteriotomy was made in the popliteal artery. The distal end of the graft was sutured in place with a running 6-0 Prolene,. The distal arterial anastomosis was completed and prior t o completing the closure, the popliteal vessels were flushed and reoccluded. Heparinized saline was infused into the lumen. The anastamosis was tied and then flow was restored. Polyphasic signals were noted distal to the distal anastomosis as well as at the posterior tibial artery. Wounds were irrigated with antibiotic-containing saline. Thrombin and gelfoam were used to aid in hemostasis. Platelet rich and platelet poor plasma were infused into the wounds. Meticulous hemostasis was obtained throughout the wound with electrocautery. Wounds were reapproximated with layers of 2-0 and 3-0 Vicryl. Skin was reapproximated with 3-0 Monocryl. Sterile dressing was applied. The patient was extubated and taken to recovery room in stable condition.
--- NOTE | 2018-10-14 13:17 | Anesthesia Evaluation Post Op ---
Date of Encounter: 10/14/18 Time of Encounter: 13:16 - Vital Signs Vital Signs: Vital Signs/O2 Sat, Most Current Temp Pulse Resp BP Pulse Ox 97.8 F 84 16 112/63 91 10/14/18 12:55 10/14/18 13:15 10/14/18 13:15 10/14/18 13:15 10/14/18 13:15 - Lungs Lungs: Clear Ascult./Percussion - Airway Airway: Non-obstructed - Cardiovascular Regular Rate - Mental Status Mental Status: Alert & Oriented, Answers Appropriately - Pain Pain Scale: 2 Pain Scale used: Numeric (1 - 10) - Nausea Vomiting Nausea Vomiting: Not Present - Hydration Hydration: NPO, Kitchen catheter - Discharge PostOp Status: Transfer Patient to floor
[2018-10-14] MEDS ORDERED: Acetaminophen 325 MG TABLET PO PRN (13:28)
[2018-10-14] MEDS ORDERED: 0.9 % Sodium Chloride 1,000 ML IVC SCH (13:28)
[2018-10-14] MEDS ORDERED: OXYCODONE Oral CONC 10 MG/0.5 ML ORAL.SYG SL PRN ×2 (13:28)
[2018-10-14] MEDS ORDERED: D5% in Water 1,000 ML IVC PRN (13:28)
[2018-10-14] MEDS ORDERED: Naloxone 0.4 MG/ML INJ IVP PRN (13:28)
[2018-10-14] MEDS ORDERED: Albuterol Neb 0.63 MG/3 ML VIAL IH PRN (13:28)
[2018-10-14] MEDS ORDERED: Dextrose Gel 15 GM/37.5 ML TUBE PO PRN ×2 (13:28)
[2018-10-14] MEDS ORDERED: *HR* Labetalol 20 MG/4 ML SYRINGE IVP PRN ×2 (13:28→14:00)
[2018-10-14] MEDS ORDERED: *HR* Dextrose 50 % in Water (Syg) 50 ML SYRINGE IVP PRN (13:28)
[2018-10-14] MEDS ORDERED: Nitroglycerin 0.4 MG TAB.SUBL SL PRN (13:28)
[2018-10-14] MEDS: Gabapentin 300 MG CAPSULE PO SCH ×2 (14:28→19:55)
[2018-10-14] MEDS: *HR* HYDROcodone/Acet 5/325 mg TABLET PO PRN (14:28)
[2018-10-14] MEDS: Insulin LISPRO 300 UNITS/3 ML VIAL SQ SCH (17:02)
--- NOTE | 2018-10-14 17:17 | Operative Note ---
Date of procedure: 10/14/18 Pre-op diagnosis: PAD with disabling claudication Post-op diagnosis: same Procedure: Right femoral to [id number] popliteal artery bypass graft using reverse greater saphenous vein Complications: None Anesthesia: GETA Surgeon: Jesus Smith Co-Surgeon: Mo Vale Was there an sales and marketing assistant present: No Estimated blood loss (cc): 100 Specimen: 0 Condition: stable Disposition: PACU Procedure in Detail: History Zhao Best is a 53-year-old white male. He has significant lower extremity vascular disease on both physical examination on noninvasive testing. This was confirmed by angiography. The patient now comes the operating room for correction of the lesion with bypass grafting to the right lower extremity. Procedure After informed consent was obtained the patient was taken to the operating room. General endotracheal anesthesia was established. The lower abdomen and groin and right lower extremity was sterilely prepped and draped. A timeout protocol was observed. A 2 team surgical approach was utilized this procedure due to the patient's ongoing chronic medical conditions. This would also facilitate decreased operative time and decreased blood loss as well as anesthetic exposure. Incisions were then made on the right thigh to expose the common femoral artery and the saphenous vein. The saphenous vein appeared to be extraordinarily deep and with multiple branches. A medial branch was the dominant vessel into the mid and distal portion of the thigh requiring a very tedious and in-depth dissection in order to identify and then free up the vein so that it could be utilized. This was eventually accomplished and the vein was not divided. It was removed and an gently irrigated with heparinized saline prior static dilatation. It was divided at the fossa ovalis and oversewn with Prolene. A subsartorial tunnel was then created. Heparin was then administered a dose of 5000 units. The proximal anastomosis was then fashioned in end to side configuration. The vein was placed in a reversed orientation. After the proximal anastomosis was completed the vein was passed through the tunnel. The distal anastomosis was then created to the [id number] popliteal artery. This was a relatively soft vessel above the knee though there was posterior plaque present. An end-to-side anastomosis was performed at this location. After appropriate backbleeding and flushing the graft was opened and pulsatile flow was then restored into the popliteal system. The patient had a Doppler signal identified over both ER dorsalis pedis and posterior tibial arteries at the ankle. The wounds were then irrigated and hemostasis achieved. The wounds were then closed in layers using absorbable suture. Dry sterile dressing was then applied. There were no intraoperative complications. The patient was extubated in the operating room and taken to the recovery room in stable condition.
[2018-10-14] MEDS: *HR* Metoprolol 5 MG/5 ML VIAL IVP SCH (17:22)
[2018-10-14] MEDS: *HR* Ticagrelor 90 MG TABLET PO SCH (19:56)
[2018-10-14] MEDS ORDERED: Vancomycin 1,000 MG in D5% in Water 250 ML IVPB ONE (20:00)
[2018-10-14] MEDS: Lactobacillus 1 EACH CAP.SPRINK PO SCH (20:04)
[2018-10-14] MEDS ORDERED: Insulin LISPRO 300 UNITS/3 ML VIAL SQ SCH (21:00)
[2018-10-15] MEDS: Budesonide/Formoterol 80/4.5 MDI IH SCH ×2 (00:15→11:00)
[2018-10-15] MEDS: *HR* Metoprolol 5 MG/5 ML VIAL IVP SCH ×3 (00:37→11:44)
[2018-10-15] MEDS ORDERED: *HR* Heparin 5,000 UNIT/ML VIAL SQ SCH ×2 (06:00)
[2018-10-15 06:45] LABS: Basophils # 0.1 K/mcL (0.0-0.2); Basophils % 0.3 %; Eosinophils # 0.2 K/mcL (0.0-0.6); Eosinophils % 0.9 %; Hematocrit 39.6 % (37.5-50.1); Hemoglobin 12.8 g/dL (12.9-16.9); Immature Granulocytes % 2.2 % (0-4); Lymphocytes # 5.1 K/mcL (0.6-4.6); Lymphocytes % 30.1 %; Mean Corpuscular HGB Conc 32.3 g/dL (31.6-35.5); Mean Corpuscular Hemoglobin 30.1 pg (28.0-33.3); Mean Corpuscular Volume 93.2 fL (83.0-100.0); Mean Platelet Volume 9.9 fL (9.4-12.4); Monocytes % 11.7 %; Neutrophils # 9.4 K/mcL (1.6-8.9); Nucleated Red Blood Cells 0.7 /100 WBC (0); Platelet Count 365 K/mcL (140-400); Red Blood Count 4.25 M/mcL (4.19-5.50); Red Cell Distribution Width 16.7 % (11.5-14.5); Segmented Neutrophils % 54.8 %
[2018-10-15 06:51] LABS: BUN/Creatinine Ratio 16 (6-26); Blood Urea Nitrogen 17 mg/dL (6-20); Calcium 8.7 mg/dL (8.6-10.3); Carbon Dioxide 21 mEq/L (23-29); Chloride 109 mEq/L (98-107); Glucose 148 mg/dL (70-105); Osmolality,Calculated 298 (280-300); Sodium 142 mEq/L (136-145); eGFR For Non-African Americans > 60 (> 60)
[2018-10-15] MEDS ORDERED: Tiotropium 18 MCG inhalation IH SCH (07:00)
--- NOTE | 2018-10-15 07:24 | Discharge Summary ---
Orders not resulted at time of discharge: Pending orders 10/07/18 13:12 Red Blood Cells [BBK] Routine Date of Encounter: 10/15/18 Time of Encounter: 07:45 - Discharge Diagnosis (1) Atherosclerosis of [place] arteries of extremities with intermittent claudication, bilateral legs Priority: Primary Status: Chronic Comments: The patient is postoperative day #1 after a right femoral to popliteal artery bypass. His palpable pedal pulses, his compartments are soft, his incisions are healing well. He will be discharged today. (2) Mixed hyperlipidemia Priority: Secondary Status: Chronic (3) Essential hypertension Priority: Secondary Status: Chronic (4) CAD (coronary artery disease) Priority: Secondary Status: Chronic Qualifiers: Coronary Disease-Associated Artery/Lesion type: [place] artery [place] vs. transplanted heart: [place] heart Associated angina: without angina Qualified Code(s): I25.10 - Atherosclerotic heart disease of [place] coronary artery without angina pectoris (5) Tobacco abuse Priority: Secondary Status: Chronic (6) Blood loss anemia Priority: Secondary Status: Acute Comments: The patient has acute expected postoperative blood loss anemia. He is hemodynamically stable without evidence of ongoing blood loss. - Hospital Course Hospital course: Mr. Best is a 53 year old male with history of hyperlipidemia, hypertension, diabetes and tobacco abuse. He is found have significant peripheral vascular disease with disabling claudication of the right lower extremity. He underwent a right femoral to popliteal artery bypass. On postoperative day #1 he had palpable pedal pulses. He was able to ambulate. He reported adequate pain control. His found have acute expected postoperative blood loss anemia. He was hemodynamically stable. He was discharged postoperative day #1 sterile condition without complication. Time spent discussing smoking cessation with patient: 3 to 10 minutes - Time Spent with Patient Total time spent providing and/or coordinating discharge services: - Discharge Medications Prescriptions: Continue RX: Cilostazol [Pletal] 100 mg PO BID RX: Sertraline [Zoloft] 50 mg PO DAILY RX: Metoprolol Tartrate [Lopressor] 50 mg PO BID RX: Fenofibrate Nanocrystallized [Fenofibrate] 160 mg PO DAILY RX: Bupropion HCl [Wellbutrin Xl] 300 mg PO DAILY RX: Rosuvastatin [Crestor] 40 mg PO HS RX: Glimepiride [Amaryl] 4 mg PO DAILY RX: Aspirin Enteric Coated [Aspirin EC] 81 mg PO DAILY RX: Ticagrelor [Brilinta] 90 mg PO BID tablet RX: Insulin DETEMIR [Levemir] 65 unit SQ QAM RX: Isosorbide MONOnitrate (24 HR) [Imdur] 120 mg PO DAILY RX: Dapagliflozin Propanediol [Farxiga] 10 mg PO DAILY RX: Amlodipine Besylate 10 mg PO DAILY RX: Insulin DETEMIR [Levemir] 25 unit SQ QPM RX: Metformin HCl [Glucophage] 1,000 mg PO BID #0 RX: Tiotropium [Spiriva] 1 puff IH 0700 RX: Nitroglycerin [Nitrostat] 0.4 mg SL DAILY PRN PRN Reason: Chest Pain RX: Albuterol Neb [AccuNeb] 3 ml IH Q6H PRN PRN Reason: Shortness Of Breath RX: Fluticasone/Salmeterol [Advair 250-50 Diskus] 1 puff IH BID RX: Cholecalciferol (Vitamin D3) [Vitamin D3] 5,000 unit PO DAILY RX: Gabapentin [Neurontin] 300 mg PO TID RX: Ibuprofen 800 mg PO Q6H PRN PRN Reason: Pain RX: Insulin ASPART [Novolog Flexpen] 0 - 12 unit SQ ACHS RX: Cephalexin [Keflex] 500 mg PO Q6H RX: L. Acidophilus/Pectin, [place] [Acidophilus Caplet] 1 tab PO BID RX: Loperamide HCl [Imodium A-D] 2 mg PO AD PRN PRN Reason: Diarrhea RX: Oxycodone HCl/Acetaminophen [Percocet 7.5-325 mg Tablet] 1 tab PO Q6H PRN PRN Reason: Mild To Moderate Pain RX: Umeclidinium [place] [Incruse Ellipta] 62.5 mcg IH DAILY Home Medications: RX: Aspirin Enteric Coated [Aspirin EC] 81 mg PO DAILY 02/16/18 [History] RX: Bupropion HCl [Wellbutrin Xl] 300 mg PO DAILY 02/16/18 [History] RX: Cilostazol [Pletal] 100 mg PO BID 02/16/18 [History] RX: Fenofibrate Nanocrystallized [Fenofibrate] 160 mg PO DAILY 02/16/18 [History] RX: Glimepiride [Amaryl] 4 mg PO DAILY 02/16/18 [History] RX: Metoprolol Tartrate [Lopressor] 50 mg PO BID 02/16/18 [History] RX: Rosuvastatin [Crestor] 40 mg PO HS 02/16/18 [History] RX: Sertraline [Zoloft] 50 mg PO DAILY 02/16/18 [History] RX: Ticagrelor [Brilinta] 90 mg PO BID tablet 03/02/18 [Rx] RX: Amlodipine Besylate 10 mg PO DAILY 07/07/18 [History] RX: Dapagliflozin Propanediol [Farxiga] 10 mg PO DAILY 07/07/18 [History] RX: Insulin DETEMIR [Levemir] 25 unit SQ QPM 07/07/18 [History] RX: Insulin DETEMIR [Levemir] 65 unit SQ QAM 07/07/18 [History] RX: Isosorbide MONOnitrate (24 HR) [Imdur] 120 mg PO DAILY 07/07/18 [History] RX: Metformin HCl [Glucophage] 1,000 mg PO BID #0 07/07/18 [Rx] RX: Albuterol Neb [AccuNeb] 3 ml IH Q6H PRN 07/22/18 [History] RX: Cholecalciferol (Vitamin D3) [Vitamin D3] 5,000 unit PO DAILY 07/22/18 [History] RX: Fluticasone/Salmeterol [Advair 250-50 Diskus] 1 puff IH BID 07/22/18 [History] RX: Nitroglycerin [Nitrostat] 0.4 mg SL DAILY PRN 07/22/18 [History] RX: Tiotropium [Spiriva] 1 puff IH 0700 07/22/18 [History] RX: Gabapentin [Neurontin] 300 mg PO TID 08/19/18 [History] RX: Ibuprofen 800 mg PO Q6H PRN 08/19/18 [History] RX: Insulin ASPART [Novolog Flexpen] 0 - 12 unit SQ ACHS 08/19/18 [History] RX: Cephalexin [Keflex] 500 mg PO Q6H 10/14/18 [History] RX: L. Acidophilus/Pectin, [place] [Acidophilus Caplet] 1 tab PO BID 10/14/18 [History] RX: Loperamide HCl [Imodium A-D] 2 mg PO AD PRN 10/14/18 [History] RX: Oxycodone HCl/Acetaminophen [Percocet 7.5-325 mg Tablet] 1 tab PO Q6H PRN 10/14/18 [History] RX: Umeclidinium [place] [Incruse Ellipta] 62.5 mcg IH DAILY 10/14/18 [History] Allergies/Adverse Reactions: Allergy/AdvReac Type Severity Reaction Status Date / Time No Known Allergies Allergy Verified 07/22/18 13:27 Date of admission: 10/14/18 13:21 Primary care physician: Zhao Orantes MD Consults: 10/14/18 13:40 Consult to Patent Chemist [CONS] Routine Reason for SW Consult: ecf Procedure(s) Performed: Right femoral to above-knee popliteal artery bypass graft. Discharging clinician: Jeuss Smith Anticipated date of discharge: 10/15/18 Exam Vital Signs, Last 4 Hours Temp Pulse Resp BP Pulse Ox 10/15/18 03:32 98.2 F 84 17 122/67 94 General: Present: Conversant HEENT: Present: Pupils equal Neck: Absent: JVD Cardiac: Present: Reg Rate and Rhythm Lungs: Present: Normal Breath Sounds Neuro: Present: Alert and responsive, Motor nerves grossly intact, Sensory nerves grossly intact Abdomen: Present: Soft Vascular: Present: Normal capillary refill, Pulse, normal, Surgical incisions (Clean, dry and intact without erythema or drainage, no hematoma). Absent: Cyanosis Skin: Present: No rashes noted on visualized skin - Patient Status Disposition: Transfer LTC Condition: Good Functional capacity at discharge: independent ambulation Overall status at discharge: patient is back to baseline - Discharge Instructions Instructions: Femoropopliteal Bypass (DC) Follow Up With: Zhao Orantes MD [Primary Care Provider] - (Patient is from [facility] no PCP appointment needed) Jesus Smith MD [Partnered Physician] - 11/03/18 3:00 pm Additional Instructions: May remove bandage and shower on 10/16/2018. Wash wounds gently and pat to dry. Applied dry gauze to wounds daily for 7 days. No tub baths or swimming until 11/24/2018. Call [phone] with questions or concerns. - Diet and Activity Activity: increase activity as tolerated Diet: advance to your usual diet
[2018-10-15 07:40] VITALS: BP 120/74
[2018-10-15] MEDS: Insulin LISPRO 300 UNITS/3 ML VIAL SQ SCH ×2 (07:54→11:38)
[2018-10-15] MEDS: *HR* OxyCODONE Immed Rel 5 MG TABLET PO PRN ×2 (07:58→11:39)
[2018-10-15] MEDS: Gabapentin 300 MG CAPSULE PO SCH (07:58)
[2018-10-15] MEDS: Lactobacillus 1 EACH CAP.SPRINK PO SCH (08:00)
[2018-10-15] MEDS: *HR* Ticagrelor 90 MG TABLET PO SCH (08:00)
[2018-10-15] MEDS ORDERED: (Umeclidinium Bromide [Incruse Ellipta] 62.5 MCG) IH SCH (09:00)
[2018-10-15] MEDS ORDERED: Aspirin Enteric Coated 81 MG Tablet PO SCH (09:00)
[2018-10-15] MEDS ORDERED: BuPROPion XL (24 HR) 150 MG TABLET PO SCH (09:00)
[2018-10-15] MEDS ORDERED: Isosorbide MONOnitrate (24 HR) 60 MG TAB.ER.24H PO SCH (09:00)
[2018-10-15] MEDS ORDERED: Cholecalciferol (D-3) 1,000 UNIT TABLET PO SCH (09:00)
[2018-10-15] MEDS ORDERED: (Dapagliflozin Propanediol [Farxiga] 10 MG) PO SCH (09:00)
[2018-10-15] MEDS ORDERED: amLODIPine 5 MG TABLET PO SCH (09:00)
[2018-10-15] MEDS ORDERED: Fenofibrate 54 MG TABLET PO SCH (09:00)
--- NOTE | 2018-10-15 10:05 | Physician Discharge Referral ---
ExtendedCare Referral Info Transfer To: [facility] Provider in Charge after Transfer: PCP - Diagnosis (1) Atherosclerosis of [place] arteries of extremities with intermittent claudication, bilateral legs Priority: Primary Status: Chronic (2) Mixed hyperlipidemia Priority: Secondary Status: Chronic (3) Tobacco abuse Priority: Secondary Status: Chronic (4) Essential hypertension Priority: Secondary Status: Chronic (5) CAD (coronary artery disease) Priority: Secondary Status: Chronic Prognosis: Good Aware of Diagnosis: Patient Aware of Prognosis: Patient - Transfer Medications Home Medications: Aspirin Enteric Coated [Aspirin EC] 81 mg PO DAILY 02/16/18 [History] Bupropion HCl [Wellbutrin Xl] 300 mg PO DAILY 02/16/18 [History] Cilostazol [Pletal] 100 mg PO BID 02/16/18 [History] Fenofibrate Nanocrystallized [Fenofibrate] 160 mg PO DAILY 02/16/18 [History] Glimepiride [Amaryl] 4 mg PO DAILY 02/16/18 [History] Metoprolol Tartrate [Lopressor] 50 mg PO BID 02/16/18 [History] Rosuvastatin [Crestor] 40 mg PO HS 02/16/18 [History] Sertraline [Zoloft] 50 mg PO DAILY 02/16/18 [History] Ticagrelor [Brilinta] 90 mg PO BID tablet 03/02/18 [Rx] Amlodipine Besylate 10 mg PO DAILY 07/07/18 [History] Dapagliflozin Propanediol [Farxiga] 10 mg PO DAILY 07/07/18 [History] Insulin DETEMIR [Levemir] 25 unit SQ QPM 07/07/18 [History] Insulin DETEMIR [Levemir] 65 unit SQ QAM 07/07/18 [History] Isosorbide MONOnitrate (24 HR) [Imdur] 120 mg PO DAILY 07/07/18 [History] Metformin HCl [Glucophage] 1,000 mg PO BID #0 07/07/18 [Rx] Albuterol Neb [AccuNeb] 3 ml IH Q6H PRN 07/22/18 [History] Cholecalciferol (Vitamin D3) [Vitamin D3] 5,000 unit PO DAILY 07/22/18 [History] Fluticasone/Salmeterol [Advair 250-50 Diskus] 1 puff IH BID 07/22/18 [History] Nitroglycerin [Nitrostat] 0.4 mg SL DAILY PRN 07/22/18 [History] Tiotropium [Spiriva] 1 puff IH 0700 07/22/18 [History] Gabapentin [Neurontin] 300 mg PO TID 08/19/18 [History] Ibuprofen 800 mg PO Q6H PRN 08/19/18 [History] Insulin ASPART [Novolog Flexpen] 0 - 12 unit SQ ACHS 08/19/18 [History] Cephalexin [Keflex] 500 mg PO Q6H 10/14/18 [History] L. Acidophilus/Pectin, [place] [Acidophilus Caplet] 1 tab PO BID 10/14/18 [History] Loperamide HCl [Imodium A-D] 2 mg PO AD PRN 10/14/18 [History] Oxycodone HCl/Acetaminophen [Percocet 7.5-325 mg Tablet] 1 tab PO Q6H PRN 10/14/18 [History] Umeclidinium [place] [Incruse Ellipta] 62.5 mcg IH DAILY 10/14/18 [History] Allergies/Adverse Reactions: Allergy/AdvReac Type Severity Reaction Status Date / Time No Known Allergies Allergy Verified 07/22/18 13:27 - Respiratory Orders Smoking Cessation: Smoking cessation has been advised. For more information, call the [place] Tobacco Quit Line at 9-955-UTCPNOW. - Ancillary Orders May use pressure relief devices daily prn, May go on DARIUS w/family/respon republican w/meds at nurse discretion PRN, May have alcoholic beverages, May consult with Dentist, Director Of Security, Family Worker PRN - Advance Directives Living Will: No Power of Scraper Operator for Health Care: No Code Status: Full Code - Mobility Orders Ambulate - Rehabiliation Orders Rehab Potential: Good Rehab Orders: Evaluation for Physical Therapy, Evaluation for Occupational Therapy, Evaluation for Speech Therapy - Treatments Skin tear care topically daily PRN per policy, May check for fecal impaction rectally daily PRN, Fleet enema rectally every other day PRN cleansing purposes List/Other: May remove bandage and shower on 10/16/2018. Wash wounds gently and pat to dry. Apply dry gauze and paper tape to wounds daily for 7 days. - Diet Orders No Concentrated Sweets CERTIFICATION: I certify that the transfer of the above named patient to an Extended Care Facility is necessary for the continuing treatment of the diagnosis listed. The above information is true and accurate reflection of patient's current condition. Confidential - Redisclosure prohibited without a patient's written consent.
[2018-10-15] MEDS: *HR* HYDROcodone/Acet 5/325 mg TABLET PO PRN (10:26)
== END 2018-10-15 12:26 | DRG 253 ==
LOC: SAMDAY 06:03 → 2SOUTHHOLD 13:21 → 2NNU 13:30
PROVIDERS: ADMIT Surgery; ATTEND Surgery